=== PATIENT | male | born 1985 | race Caucasian/White ===

== ENCOUNTER 2020-09-06 23:34 | Emergency (ER) | payer OTHER, SELFPAY ==
[2020-09-06 23:35] VITALS: BP 123/83; BP 140/87; PULSE 100; PULSE 103; RESP 18; TEMP 37; O2SAT 100; BMI 32.3
--- NOTE | 2020-09-06 23:45 | ECG_ITS ---
Test Reason : ANXIETY Blood Pressure : / mmHG Vent. Rate : 098 BPM Atrial Rate : 098 BPM P-R Int : 142 ms QRS Dur : 098 ms QT Int : 362 ms P-R-T Axes : 005 066 032 degrees QTc Int : 462 ms Normal sinus rhythm Normal ECG When compared with ECG of 15-JUN-2020 05:39, T wave inversion no longer evident in Anterior leads Heart rate has decreased Referred By: Richelle Calero Electronically Signed By:LACEY ANGELES MD
[2020-09-07] MEDS: LORazepam 2 MG/ML VIAL IVPUSH (00:08)
[2020-09-07 00:14] LABS: Basophils Percent Auto 0.4 % (0-2); Eosinophils Percent Auto 0.1 % (0-4); Hematocrit 48.4 % (42-52); Hemoglobin 17.6 g/dl (14.0-18.0); Imm Gran Abs Auto 0.03 X10*3/uL (0.00-0.03); Imm Gran Pct Auto 0.4 % (0.0-0.4); Lymphocytes Absolute Auto 1.5 X10*3/uL (1.2-4.9); Lymphocytes Percent Auto 18.1 % (20-40); MANUAL DIFF FLAG NO; Mean Corpuscular HGB Conc 36.4 g/dl (31.0-36.0); Mean Corpuscular Hemoglobin 31.5 pg (27.0-33.0); Mean Corpuscular Volume 86.6 fL (80-98); Mean Platelet Volume 8.6 fL (9.4-12.4); Monocytes Absolute Auto 0.5 X10*3/uL (0.1-1.2); Monocytes Percent Auto 5.5 % (2-11); Neutrophils Absolute Auto 6.2 X10*3/uL (2.0-8.3); Neutrophils Percent Auto 75.5 % (45-73); Platelet Count 495 X10*3/uL (160-400); Red Blood Count 5.59 X10*6/uL (4.60-5.80); Red Cell Distribution Width 13.1 % (11.0-16.0); White Blood Count 8.2 X10*3/uL (4.8-10.8)
--- NOTE | 2020-09-07 00:15 | XR_ITS ---
EXAMINATION: XR CHEST CLINICAL INFORMATION: Chest pain COMPARISON: 11/02/2019 TECHNIQUE: Frontal view of the chest was obtained. FINDINGS: No acute finding. Low lung volumes. No obvious failure or infiltrate. No effusion. XR/XR chest 1V IMPRESSION: No acute process
[2020-09-07] MEDS: 0.9 % Sodium Chloride 1,000 ML 999 ML IVCONT ×2 (00:16→01:35)
[2020-09-07 00:37] VITALS: PULSE 88; RESP 18; O2SAT 100
[2020-09-07 00:39] LABS: Ethanol 282 mg/dL
[2020-09-07 00:46] LABS: Anion Gap 22 (12-20); Blood Urea Nitrogen 6 mg/dL (9-16); Calcium 8.7 mg/dL (8.4-10.2); Carbon Dioxide 21 mmol/L (22-29); Chloride 99 mmol/L (96-108); Creatinine Clr Calc Pharmacy 122.1; Estimated Glomerular Filt Rate > 60; Glucose Random 141 mg/dL (60-115); Magnesium 1.7 mg/dL (1.6-2.6); Potassium 3.7 mmol/l (3.3-5.1); Sodium 138 mmol/L (135-145)
--- NOTE | 2020-09-07 01:27 | ED_ITS ---
HPI - General Adult General Chief complaint: General Medical Stated complaint: chest pain Time Seen by Provider: 09/06/20 23:45 History of Present Illness HPI narrative: patient is a 34-year-old male presents to the after drinking alcohol feeling very dizzy, nauseous. Patient from home. Feels very anxious. Patient's wants Ativan. History of anxiety in the past but is out of medicat ion. No cough and no congestion or upper respiratory symptoms no diaphoresis. Patient from home Related Data Allergies Allergy/AdvReac Type Severity Reaction Status Date / Time Penicillins [PENICILLINS] Allergy Severe ANAPHYLAXIS Unverified 07/05/20 15:23 penicillin V Allergy Unknown anaphylaxis Verified 03/21/20 00:00 Penicillin Allergy Unknown Uncoded 06/16/18 00:00 Review of Systems Review of Systems: Constitutional: No Weight loss, No Fever, No Chills, No Night Sweats, No Fatigue, No Malaise ENT/Mouth: No Hearing loss, No Ear Pain, No Nasal Congestion, No Sinus Pain, No Hoarseness, No sore throat, No Rhinorrhea, No Swallowing Difficulty Eyes: No Eye Pain, No Swelling, No Redness, No Foreign Body, No Discharge, No Vision Changes Cardiovascular: No Chest Pain, No SOB, No Dyspnea on Exertion, No Orthopnea, No Edema, No Palpitations Respiratory: No Cough, No Sputum, No Wheezing, No Smoke Exposure, No Dyspnea Gastrointestinal: No Nausea, No Vomiting, No Diarrhea, No Constipation, No abdominal Pain, No Hematochezia, No Melena Genitourinary: no irregular bleeding, No Dysuria, No Urinary Frequency, No Hematuria, No Urinary Incontinence, No Urgency, No Flank Pain, No Urinary Flow Changes, No Hesitancy Musculoskeletal: No joint pain, No Myalgias, No Joint Swelling Skin: No Skin Lesions, No rash Neuro: No Weakness, No Numbness, No Paresthesias, No Loss of Consciousness, No Dizziness, No Headache Psych: No Anxiety/Panic, No Depression, No SI/HI/AH/VH, No Social Issues, Heme/Lymph: No Bruising, No Bleeding,No Lymphadenopathy Endocrine: No Polyuria, No Polydipsia, No Temperature Intolerance PMFSH Past Medical History Attestation statement: The following information was validated with the patient. Medical History Alcohol abuse Anxiety Social History Social History Smoking Status: Current every day smoker Use of substances other than those prescribed or required for medical reasons: Yes Substance Use Type: Marijuana and Unknown Substance Use Frequency: Monthly Advance Directives: No Advance Directives Information Provided: No Physical Exam Vital Signs: Vital Signs: Last Vital Signs Temp 98.6 F 09/06/20 23:35 Pulse 90 09/07/20 03:15 Resp 20 09/07/20 03:15 BP 140/87 H 09/06/20 23:35 Pulse Ox 100 09/07/20 03:15 Body Mass Index 32.3 Appearance: Alert. Oriented X3. No acute distress. Eyes: Pupils equal, round and reactive to light. ENT: Pharynx normal. Neck: Normal inspection. Neck supple. No lymph nodes noted. No crepitus CVS: Normal heart rate and rhythm. Pulses normal. Normal S1 and S2 Respiratory: No respiratory distress. Breath sounds normal. No Wheezing. No rales Abdomen: Soft and nontender. No rigidity. No distention. good BS x4 Skin: Skin warm and dry. Normal skin color. Normal skin turgor. Extremities: No lower extremity edema. Neurovascular intact to all extremities. No Lacerations. No Rash Neuro: Oriented X 3. No motor deficit. No sensory deficit. Moving all extermities. No slurred speech Medical Decision Making MDM Narrative Medical decision making narrative: Patient alcohol elevated. Electrolytes showed an anion gap of 22. Consistent with having alcoholic ketoacidosis. Patient given IV fluids. Monitored repeat electrolytes showed the anion gap have resolved. Will discharge patient home when sober. Patient given Ativan here in the emergency department for anxiety. Lab Data Result diagrams: 09/07/20 00:07 09/07/20 03:00 Labs: Lab Results 09/07/20 09/07/20 09/07/20 Range/Units 00:07 00:07 00:07 WBC 8.2 (4.8-10.8) X10*3/uL RBC 5.59 (4.60-5.80) X10*6/uL Hgb 17.6 (14.0-18.0) g/dl Hct 48.4 (42-52) % MCV 86.6 (80-98) fL MCH 31.5 (27.0-33.0) pg MCHC 36.4 H (31.0-36.0) g/dl RDW 13.1 (11.0-16.0) % Plt Count 495 H (160-400) X10*3/uL MPV 8.6 L (9.4-12.4) fL Immature Gran % (Auto) 0.4 (0.0-0.4) % Neut % (Auto) 75.5 H (45-73) % Lymph % (Auto) 18.1 L (20-40) % [place] % (Auto) 5.5 (2-11) % Eos % (Auto) 0.1 (0-4) % Baso % (Auto) 0.4 (0-2) % Lymph # (Auto) 1.5 (1.2-4.9) X10*3/uL [place] # (Auto) 0.5 (0.1-1.2) X10*3/uL Eos # (Auto) 0.0 (0.0-0.4) X10*3/uL Baso # (Auto) 0.0 (0.0-0.2) X10*3/uL Abs Immat Gran (auto) 0.03 (0.00-0.03) X10*3/uL Absolute Neuts (auto) 6.2 (2.0-8.3) X10*3/uL Absolute Nucleated RBC 0.000 (0.0-0.012) X10*3/uL Nucleated RBC % (auto) 0.0 (0.0-0.2) /100WBC Hold Blue Top SEE NOTE Sodium 138 (135-145) mmol/L Potassium 3.7 (3.3-5.1) mmol/l Chloride 99 (96-108) mmol/L Carbon Dioxide 21 L (22-29) mmol/L Anion Gap 22 H (12-20) BUN 6 L (9-16) mg/dL Creatinine 0.89 (0.5-1.4) mg/dL Estim Creat Clear Calc 122.1 Estimated GFR > 60 Random Glucose 141 H (60-115) mg/dL Calcium 8.7 (8.4-10.2) mg/dL Magnesium 1.7 (1.6-2.6) mg/dL Troponin I High Sens (<3.5-35.0) ng/L Ethyl Alcohol mg/dL 09/07/20 09/07/20 09/07/20 Range/Units 00:07 00:07 03:00 WBC (4.8-10.8) X10*3/uL RBC (4.60-5.80) X10*6/uL Hgb (14.0-18.0) g/dl Hct (42-52) % MCV (80-98) fL MCH (27.0-33.0) pg MCHC (31.0-36.0) g/dl RDW (11.0-16.0) % Plt Count (160-400) X10*3/uL MPV (9.4-12.4) fL Immature Gran % (Auto) (0.0-0.4) % Neut % (Auto) (45-73) % Lymph % (Auto) (20-40) % [place] % (Auto) (2-11) % Eos % (Auto) (0-4) % Baso % (Auto) (0-2) % Lymph # (Auto) (1.2-4.9) X10*3/uL [place] # (Auto) (0.1-1.2) X10*3/uL Eos # (Auto) (0.0-0.4) X10*3/uL Baso # (Auto) (0.0-0.2) X10*3/uL Abs Immat Gran (auto) (0.00-0.03) X10*3/uL Absolute Neuts (auto) (2.0-8.3) X10*3/uL Absolute Nucleated RBC (0.0-0.012) X10*3/uL Nucleated RBC % (auto) (0.0-0.2) /100WBC Hold Blue Top Sodium 141 (135-145) mmol/L Potassium 4.1 (3.3-5.1) mmol/l Chloride 105 (96-108) mmol/L Carbon Dioxide 25 (22-29) mmol/L Anion Gap 15 (12-20) BUN 6 L (9-16) mg/dL Creatinine 0.79 (0.5-1.4) mg/dL Estim Creat Clear Calc 137.6 Estimated GFR > 60 Random Glucose 127 H (60-115) mg/dL Calcium 7.6 L D (8.4-10.2) mg/dL Magnesium (1.6-2.6) mg/dL Troponin I High Sens 4.0 (<3.5-35.0) ng/L Ethyl Alcohol 282 mg/dL Discharge Plan Discharge Clinical Impression: Alcohol abuse, Alcoholic ketoacidosis Patient Disposition: Home, Self-Care Instructions: Abuse of Alcohol (ED) Additional Instructions: Please stop drinking alcohol. Drinking alcohol can kill you. Referrals: Kristen Martínez MD [Primary Care Provider] - 2 days
[2020-09-07 03:15] VITALS: PULSE 90; RESP 20; O2SAT 100
[2020-09-07] MEDS: LORazepam 1 MG TABLET PO (03:19)
[2020-09-07 03:34] LABS: Anion Gap 15 (12-20); Blood Urea Nitrogen 6 mg/dL (9-16); Calcium 7.6 mg/dL (8.4-10.2); Carbon Dioxide 25 mmol/L (22-29); Chloride 105 mmol/L (96-108); Creatinine Clr Calc Pharmacy 137.6; Estimated Glomerular Filt Rate > 60; Glucose Random 127 mg/dL (60-115); Potassium 4.1 mmol/l (3.3-5.1); Sodium 141 mmol/L (135-145)
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
[2020-09-07 04:00] VITALS: PULSE 84; RESP 18
--- NOTE | 2020-09-07 04:16 | PC.NURSE ---
per md patient to be dc at 6am pending stable ambulation.
[2020-09-07 05:50] VITALS: BP 129/85; PULSE 94; RESP 18; O2SAT 100
== END 2020-09-07 06:11 | disposition home or self-care (01) ==
PROVIDERS: Emergency Provider Emergency Medicine Emergency Medical Services; PCP Internal Medicine
DX: F10.129 Alcohol abuse with intoxication, unspecified (principal); E87.2 Acidosis; Y90.8 Blood alcohol level of 240 mg/100 ml or more; R42 Dizziness and giddiness; F17.200 Nicotine dependence, unspecified, uncomplicated; Z71.6 Tobacco abuse counseling
CPT/HCPCS: 36415; 71045; 80048; 80320; 83735; 84484; 85025; 93005; 96361; 96374; 99284; J2060

== ENCOUNTER 2021-01-13 11:23 | Emergency (ER) | payer OTHER, SELFPAY ==
[2021-01-13 11:33] VITALS: BP 124/84; PULSE 120; RESP 18; TEMP 36.1; O2SAT 97; BMI 32.3
[2021-01-13 11:37] LABS: Glucose, Whole Blood 184 mg/dL (60-115)
--- NOTE | 2021-01-13 11:45 | ED_ITS ---
HPI - General Adult General Chief complaint: ETOH/Substance Use Stated complaint: ETOH INTOXICATION,CPD ONBOARD FOR SAFETY Time Seen by Provider: 01/13/21 11:40 History of Present Illness HPI narrative: This is a 35 years old male with history of alcohol abuse presented from home because was intoxicated, he denies any chest pain shortness of breath fever. He does no want detox Onset (ago): hour(s) (1) Related Data Previous Rx's Medication Instructions Recorded trazodone 50 mg tablet 50 mg PO BEDTIME PRN 30 Days #30 12/31/20 tab lorazepam 1 mg PO BID PRN #4 tab 01/13/21 Allergies Allergy/AdvReac Type Severity Reaction Status Date / Time penicillin V Allergy Unknown anaphylaxis Verified 01/13/21 11:33 Review of Systems Review of Systems: Yes all other systems are reviewed and are negative Cardiovascular: Cardiovascular: Reports no additional cardiovascular complaints Respiratory: Respiratory: Reports no additional respiratory complaints Gastrointestinal: Gastrointestinal: Reports no additional gastrointestinal c omplaints Musculoskeletal: Comments: Patient has left lower leg splint PMFSH Past Medical History Medical History Alcohol abuse Anxiety Surgical History History of removal of cyst Family History Family History Father Anxiety Mother Depression Brother No problems noted. Sister No problems noted. Son No problems noted. Son No problems noted. Social History Social History Alcohol intake: current Alcohol intake frequency: 3 or more drinks per day Alcohol type: beer, wine and hard liquor Smoking Status: Current every day smoker Use of substances other than those prescribed or required for medical reasons: No Substance Use Type: Marijuana and Unknown Advance Directives: No Advance Directives Information Provided: No Physical Exam Vital Signs: Vital Signs: Last Vital Signs Temp 97.0 F 01/13/21 11:33 Pulse 120 H 01/13/21 15:17 Resp 20 01/13/21 12:50 BP 148/91 H 01/13/21 15:17 Pulse Ox 99 01/13/21 15:17 Body Mass Index 32.3 Const: General: anxious Orientation/consciousness: oriented to person, oriented to place, oriented to time and patient oriented x3 HENMT: Head: Yes normal to inspection Eyes: General: appearance normal, both eyes and all related structures Neck: Neck: Yes normal visual inspection Chest: Chest palpation & inspection: normal inspection of the chest Resp: Auscultation: clear to auscultation bilaterally Cardio: Palpation: normal PMI Rate: regular rate Rhythm: regular rhythm GI: Inspection: Yes normal to inspection Palpation (GI): Soft to palpation Skin: General skin exam: no rashes or lesions noted and no erythema Neuro: General: oriented to person, oriented to place, oriented to time and patient oriented x3 Extrem: General: Yes normal to inspection Course Reevaluation(s) Reevaluation #1: At this time the patient is awake alert oriented x3, he has decision-making capacity, he does no want detox ,he is not suicidal he wants to be discharged. His father is here to pick him up. I will give him 4 tablet of lorazepam 1 mg so he can try to stop drinking and avoid withdrawal I had a long discussion with his dad, his dad will go tomorrow to court to petition a Section 35 Time: 15:18 Medical Decision Making Lab Data Result diagrams: 01/13/21 11:48 01/13/21 12:30 Labs: Lab Results 01/13/21 01/13/21 01/13/21 Range/Units 11:34 11:48 12:30 WBC 7.0 (4.8-10.8) X10*3/uL RBC 5.90 H (4.60-5.80) X10*6/uL Hgb 17.7 (14.0-18.0) g/dl Hct 50.6 (42-52) % MCV 85.8 (80-98) fL MCH 30.0 (27.0-33.0) pg MCHC 35.0 (31.0-36.0) g/dl RDW 13.2 (11.0-16.0) % Plt Count 543 H (160-400) X10*3/uL MPV 8.8 L (9.4-12.4) fL Immature Gran % (Auto) 0.9 H (0.0-0.4) % Neut % (Auto) 51.5 (45-73) % Lymph % (Auto) 40.3 H (20-40) % [place] % (Auto) 6.4 (2-11) % Eos % (Auto) 0.3 (0-4) % Baso % (Auto) 0.6 (0-2) % Lymph # (Auto) 2.8 (1.2-4.9) X10*3/uL [place] # (Auto) 0.5 (0.1-1.2) X10*3/uL Eos # (Auto) 0.0 (0.0-0.4) X10*3/uL Baso # (Auto) 0.0 (0.0-0.2) X10*3/uL Abs Immat Gran (auto) 0.06 H (0.00-0.03) X10*3/uL Absolute Neuts (auto) 3.6 (2.0-8.3) X10*3/uL Absolute Nucleated RBC 0.000 (0.0-0.012) X10*3/uL Nucleated RBC % (auto) 0.0 (0.0-0.2) /100WBC Sodium 142 (135-145) mmol/L Potassium 4.0 (3.3-5.1) mmol/L Chloride 101 (96-108) mmol/L Carbon Dioxide 23 (22-29) mmol/L Anion Gap 22 H (12-20) BUN 5 L (9-16) mg/dL Creatinine 0.84 (0.5-1.4) mg/dL Estim Creat Clear Calc 128.2 Estimated GFR > 60 POC Glucose 184 H (60-115) mg/dL Random Glucose 124 H (60-115) mg/dL Calcium 8.1 L D (8.4-10.2) mg/dL Magnesium 2.1 (1.6-2.6) mg/dL Total Bilirubin 0.4 (0.0-1.0) mg/dL AST 39 H (5-37) U/L ALT 48 H (0-40) U/L Alkaline Phosphatase 92 (39-117) U/L Total Protein 6.8 (6.5-8.0) g/dL Albumin 4.0 (3.5-5.0) g/dL Ethyl Alcohol mg/dL 01/13/21 Range/Units 12:30 WBC (4.8-10.8) X10*3/uL RBC (4.60-5.80) X10*6/uL Hgb (14.0-18.0) g/dl Hct (42-52) % MCV (80-98) fL MCH (27.0-33.0) pg MCHC (31.0-36.0) g/dl RDW (11.0-16.0) % Plt Count (160-400) X10*3/uL MPV (9.4-12.4) fL Immature Gran % (Auto) (0.0-0.4) % Neut % (Auto) (45-73) % Lymph % (Auto) (20-40) % [place] % (Auto) (2-11) % Eos % (Auto) (0-4) % Baso % (Auto) (0-2) % Lymph # (Auto) (1.2-4.9) X10*3/uL [place] # (Auto) (0.1-1.2) X10*3/uL Eos # (Auto) (0.0-0.4) X10*3/uL Baso # (Auto) (0.0-0.2) X10*3/uL Abs Immat Gran (auto) (0.00-0.03) X10*3/uL Absolute Neuts (auto) (2.0-8.3) X10*3/uL Absolute Nucleated RBC (0.0-0.012) X10*3/uL Nucleated RBC % (auto) (0.0-0.2) /100WBC Sodium (135-145) mmol/L Potassium (3.3-5.1) mmol/L Chloride (96-108) mmol/L Carbon Dioxide (22-29) mmol/L Anion Gap (12-20) BUN (9-16) mg/dL Creatinine (0.5-1.4) mg/dL Estim Creat Clear Calc Estimated GFR POC Glucose (60-115) mg/dL Random Glucose (60-115) mg/dL Calcium (8.4-10.2) mg/dL Magnesium (1.6-2.6) mg/dL Total Bilirubin (0.0-1.0) mg/dL AST (5-37) U/L ALT (0-40) U/L Alkaline Phosphatase (39-117) U/L Total Protein (6.5-8.0) g/dL Albumin (3.5-5.0) g/dL Ethyl Alcohol 341 H* mg/dL Discharge Plan Discharge Clinical Impression: Alcoholic intoxication, Alcohol abuse Patient Disposition: Home, Self-Care Prescriptions: New lorazepam 1 mg tablet 1 mg PO BID PRN (Reason: alcohol withdrawal) Qty: 4 RF: 0 No Action trazodone 50 mg tablet 50 mg PO BEDTIME PRN (Reason: sleep) 30 Days Qty: 30 RF: 0
[2021-01-13] MEDS: 0.9 % Sodium Chloride 1,000 ML 999 ML IVCONT (11:47)
[2021-01-13] MEDS: LORazepam 2 MG/ML VIAL 1 MG IVPUSH (11:47)
[2021-01-13 11:54] LABS: MANUAL DIFF FLAG NO
[2021-01-13 11:56] LABS: Basophils Percent Auto 0.6 % (0-2); Eosinophils Percent Auto 0.3 % (0-4); Hematocrit 50.6 % (42-52); Hemoglobin 17.7 g/dl (14.0-18.0); Imm Gran Abs Auto 0.06 X10*3/uL (0.00-0.03); Imm Gran Pct Auto 0.9 % (0.0-0.4); Lymphocytes Absolute Auto 2.8 X10*3/uL (1.2-4.9); Lymphocytes Percent Auto 40.3 % (20-40); Mean Corpuscular Volume 85.8 fL (80-98); Mean Platelet Volume 8.8 fL (9.4-12.4); Monocytes Absolute Auto 0.5 X10*3/uL (0.1-1.2); Monocytes Percent Auto 6.4 % (2-11); Neutrophils Absolute Auto 3.6 X10*3/uL (2.0-8.3); Neutrophils Percent Auto 51.5 % (45-73); Platelet Count 543 X10*3/uL (160-400); Red Cell Distribution Width 13.2 % (11.0-16.0)
[2021-01-13 12:50] VITALS: BP 122/100; PULSE 116; RESP 20
--- NOTE | 2021-01-13 12:54 | PC.NURSE ---
pt making phone calls to get a sober ride pt slightly agitated, wants to go home
[2021-01-13 12:56] VITALS: PULSE 111
[2021-01-13 13:19] LABS: Ethanol 341 mg/dL
[2021-01-13 13:24] LABS: Alanine Aminotransferase 48 U/L (0-40); Alkaline Phosphatase 92 U/L (39-117); Anion Gap 22 (12-20); Aspartate Amino Transferase 39 U/L (5-37); Bilirubin Total 0.4 mg/dL (0.0-1.0); Blood Urea Nitrogen 5 mg/dL (9-16); Calcium 8.1 mg/dL (8.4-10.2); Carbon Dioxide 23 mmol/L (22-29); Chloride 101 mmol/L (96-108); Creatinine Clr Calc Pharmacy 128.2; Estimated Glomerular Filt Rate > 60; Glucose Random 124 mg/dL (60-115); Magnesium 2.1 mg/dL (1.6-2.6); Sodium 142 mmol/L (135-145); Total Protein 6.8 g/dL (6.5-8.0)
[2021-01-13 15:17] VITALS: BP 148/91; PULSE 120; O2SAT 99
[2021-01-13] MEDS: LORazepam 1 MG TABLET PO (15:25)
== END 2021-01-13 15:30 | disposition home or self-care (01) ==
PROVIDERS: Emergency Provider Emergency Medicine; PCP Internal Medicine
DX: F10.129 Alcohol abuse with intoxication, unspecified (principal); Y90.8 Blood alcohol level of 240 mg/100 ml or more; F17.200 Nicotine dependence, unspecified, uncomplicated; Z71.6 Tobacco abuse counseling; Z79.899 Other long term (current) drug therapy
CPT/HCPCS: 36415; 80053; 80320; 82947; 83735; 85025; 96365; 96375; 99284; J2060

== ENCOUNTER 2021-01-14 14:48 | Emergency (ER) | payer OTHER, SELFPAY ==
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
[2021-01-14 15:00] VITALS: BP 132/65; PULSE 67; RESP 16; TEMP 36.3; O2SAT 98; BMI 30.7
--- NOTE | 2021-01-14 15:03 | ED_ITS ---
HPI - Alcohol General Chief Complaint: ETOH/Substance Use Stated Complaint: ETOH Time Seen by Provider: 01/14/21 14:50 Source: patient and EMS Mode of arrival: EMS History of Present Illness HPI narrative: 35-year-old male with a past medical history of anxiety, ETOH abuse, brought in by ambulance for EtOH intoxication. Patient reports drinking a little, denies other drug illicit use, SI, HI, trauma, falls or injury. Reports has not slept in a while. Requesting Ativan IM injection to help him sleep Related Data Previous Rx's Medication Instructions Recorded trazodone 50 mg tablet 50 mg PO BEDTIME PRN 30 Days #30 12/31/20 tab lorazepam 1 mg PO BID PRN #4 tab 01/13/21 Allergies Allergy/AdvReac Type Severity Reaction Status Date / Time penicillin V Allergy Unknown anaphylaxis Verified 01/13/21 11:33 Review of Systems Review of Systems: Constitutional: No Fever, No Chills Cardiovascular: No Chest Pain, No SOB Gastrointestinal: No Nausea, No Vomiting, No Abdominal pain Musculoskeletal: No joint pain Skin: No rash Neuro: No head trauma Yes all other systems are reviewed and are negative [facility] Past Medical History Attestation statement: The following information was validated with the patient. Medical History Alcohol abuse Anxiety Surgical History History of removal of cyst Family History Family History Father Anxiety Mother Depression Brother No problems noted. Sister No problems noted. Son No problems noted. Son No problems noted. Social History Social History Alcohol intake: current Alcohol intake frequency: 3 or more drinks per day Alcohol type: beer, wine and hard liquor Smoking Status: Current every day smoker Substance Use Type: Marijuana and Unknown Advance Directives: No Advance Directives Information Provided: Yes Physical Exam Vital Signs: Vital Signs: Last Vital Signs Temp 97.3 F 01/14/21 15:00 Pulse 67 01/14/21 15:00 Resp 16 01/14/21 15:00 BP 132/65 01/14/21 15:00 Pulse Ox 98 01/14/21 15:00 Body Mass Index 30.7 Const: Other: Intoxicated, + ETOH odor on breath General: cooperative, alert and awake Limitations: no limitations HENMT: Head: Yes normal to inspection, Yes atraumatic, No Reyes's sign and No raccoon eyes Ears: hearing grossly normal bilaterally General nose exam: Normal external nose present Face and sinus: Yes normal facial exam Eyes: General: appearance normal, both eyes and all related structures Pupils: Equal, round and reactive pupils present EOM: EOMs intact bilaterally Neck: Neck: Yes normal visual inspection Resp: Effort & Inspection: normal respiratory effort, no retractions and no stridor Cardio: Rate: regular rate GI: Inspection: Yes normal to inspection Palpation (GI): Soft to palpation, nontender and not rigid Skin: Rashes: no rashes Wounds: no wounds Neuro: General: tone normal and moves all extremities Cranial nerves: Yes Equal, round and reactive pupils present Extrem: General: Yes normal to inspection Psych: Thought content: suicidality and no homicidality Course Course Course Narrative: On re-eval patient is sleeping comfortably, in no apparent distress --1800--ED care transferred to [facility] pending clinical sobriety and anticipated DC home or transfer to detox if patient is willing MDM - Alcohol MDM Narrative Medical decision making narrative: 35-year-old male with a past medical history of anxiety, ETOH abuse, brought in by ambulance for EtOH intoxication. On exam VSS, NAD, intoxicated, + ETOH odor on breath, [id number], no signs of trauma. Will observe and reassess for clinical sobriety. Discharge Plan Discharge Clinical Impression: Alcoholic intoxication Instructions: Alcohol Intoxication (ED) Additional Instructions: Do not drink alcohol or take drugs it can kill you Prescriptions: No Action lorazepam 1 mg tablet 1 mg PO BID PRN (Reason: alcohol withdrawal) Qty: 4 RF: 0 trazodone 50 mg tablet 50 mg PO BEDTIME PRN (Reason: sleep) 30 Days Qty: 30 RF: 0 Referrals: Physician,Unknown [Primary Care Provider] - 2 days
--- NOTE | 2021-01-14 15:14 | PC.NURSE ---
MOTHER CALLED AND STATES PATIENT NEEDS A CRISIS EVAL WHEN SOBER
--- NOTE | 2021-01-14 15:29 | PC.NURSE ---
sleeping. side lying. arousable.
--- NOTE | 2021-01-14 17:30 | PC.NURSE ---
increasing activity. making mult phone calls. at times is difficult to redirect to stay safely in bed.
--- NOTE | 2021-01-14 18:18 | PC.NURSE ---
pt making multiple attempts to leave er. pt not directable. pt needing multiple staff to escort back to bed.
[2021-01-14 19:31] VITALS: BP 119/83; PULSE 114; RESP 18; O2SAT 95
--- NOTE | 2021-01-14 19:35 | PC.NURSE ---
pt has been ambulatory but with unsteady gait.
== END 2021-01-14 22:06 | disposition home or self-care (01) ==
PROVIDERS: Emergency Provider Emergency Medicine Emergency Medical Services
DX: F10.120 Alcohol abuse with intoxication, uncomplicated (principal); Y90.9 Presence of alcohol in blood, level not specified; F17.200 Nicotine dependence, unspecified, uncomplicated; F12.90 Cannabis use, unspecified, uncomplicated
CPT/HCPCS: 70450; 99284

== ENCOUNTER 2021-01-17 06:43 | Emergency (ER) | payer OTHER, SELFPAY ==
[2021-01-17 06:49] VITALS: BP 145/100; PULSE 114; RESP 20; TEMP 36.7; O2SAT 97; BMI 26.3
--- NOTE | 2021-01-17 07:13 | ED_ITS ---
HPI - General Adult General Chief complaint: ETOH/Substance Use Stated complaint: withdrawing Time Seen by Provider: 01/17/21 07:11 Source: patient Mode of arrival: EMS Limitations: no limitations History of Present Illness HPI narrative: 35-year-old male who presents emergency department for evaluation of an ?I am detoxing ?. The patient states that he binge drinks. He has been drinking daily for approximately 5 weeks. He states that he has been drinking Kwesi Archuleta and strawberry margaritas, he states that he drinks of lot and cannot quantify the amount. His last drink was last night at 8:30 p.m.. He s tates that this morning he began vomiting. He states that he has vomited multiple times but cannot quantify the number. He denies any blood in the emesis. He denies any change in his bowel movements, dark tarry stools or blood in his stools. He is complaining of nausea. He also states that he shaking uncontrollably knee believes that he is withdrawing from alcohol. He denies ever having delirium tremors or withdrawal seizures. He states that he has been in detox and rehab programs at least 10 times in the past. States that his last detox was probably 2 years prior. Related Data Previous Rx's Medication Instructions Recorded trazodone 50 mg tablet 50 mg PO BEDTIME PRN 30 Days #30 12/31/20 tab lorazepam 1 mg PO BID PRN #4 tab 01/13/21 Allergies Allergy/AdvReac Type Severity Reaction Status Date / Time penicillin V Allergy Unknown anaphylaxis Verified 01/13/21 11:33 Review of Systems Review of Systems: Yes all other systems are reviewed and are negative Neurologic: Reports Abnormal speech present [facility] Past Medical History [facility] Narrative: The patient denies tobacco use. He binge drinks alcohol and he states that he has been drinking daily for 5 weeks. He denies drug use when I question him, he reported to the nursing staff that he uses marijuana. Medical History Alcohol abuse Anxiety Surgical History History of removal of cyst Family History Family History Father Anxiety Mother Depression Brother No problems noted. Sister No problems noted. Son No problems noted. Son No problems noted. Social History Social History Alcohol intake: current Alcohol intake frequency: 3 or more drinks per day Alcohol type: beer, wine and hard liquor Smoking Status: Never smoker Use of substances other than those prescribed or required for medical reasons: No Substance Use Type: Marijuana and Unknown Advance Directives: Yes Advance Directives Information Provided: No Advance Directives on File: No Physical Exam Vital Signs: Vital Signs: Last Vital Signs Temp 98.0 F 01/17/21 06:49 Pulse 118 H 01/17/21 10:35 Resp 18 01/17/21 10:35 BP 114/87 01/17/21 10:35 Pulse Ox 95 01/17/21 10:35 Body Mass Index 26.3 Const: General: cooperative and other (Face is erythematous, he is tremulous, he appears anxious) Orientation/consciousness: oriented to person and oriented to place Limitations: no limitations HENMT: Head: Yes normal to inspection, Yes normocephalic and Yes atraumatic Ears: external ears normal General nose exam: Normal external nose present Face and sinus: Yes normal facial exam Mouth: Normal oral and palatal mucosa present Throat: Yes posterior oropharynx normal Eyes: Periorbital: periorbital findings normal Eyelids: Yes eyelids normal Conjunctivae: conjunctivae normal Sclerae: sclerae normal Corneas: corneas normal Pupils: Equal, round and reactive pupils present Direct Ophthalmoscopy: normal light reflex Neck: Neck: Yes full ROM, Yes no lymphadenopathy, Yes no meningeal signs, Yes trachea midline and Yes supple Chest: Chest palpation & inspection: normal inspection of the chest and normal palpation of entire chest wall Resp: Effort & Inspection: normal respiratory effort and able to speak in complete sentences Auscultation: clear to auscultation bilaterally Cardio: Rate: tachycardic Rhythm: regular rhythm Heart sounds: S1 normal heart sound present, S2 normal heart sound present and no murmurs GI: Inspection: Yes normal to inspection Palpation (GI): Soft to palpation, nontender, no guarding, not rigid and No hepatosplenomegaly present Auscultation: normal bowel sounds : General: Yes no CVA tenderness Back/Spine/Pelvis: Back: no CVA tenderness Cervical Spine: normal cervical lordosis Thoracic/Lumbar Spine: thoracic and lumbar spine normal to inspection Skin: Lesions: no lesions Rashes: no rashes Wounds: no wounds Neuro: General: oriented to person, oriented to place and no meningeal signs Cranial nerves: Yes CN's II-XII intact bilaterally and Yes Equal, round and reactive pupils present Cognition (Neuro): normal cognition Speech: Abnormal speech present Motor exam (neuro): 5/5 motor strength present throughout Extrem: General: Yes normal to inspection and Yes full ROM Psych: Appearance: well kempt Mental Status: mental status grossly normal Speech and movement: Normal speech and movement present Affect: Anxious affect present Attitude: cooperative Thought process: Normal thought process present Thought content: Normal thought content present Course Course Course Narrative: 35-year-old man with a history of alcohol use disorder, the patient states he has been binge drinking for 5 weeks, developed nausea and vomiting last night his last drink was at 8:30 p.m.. last night. Physical examination revealed that he was tachycardic with a pulse of 114, hypertensive with a blood pressure of 145/100 and tachypneic with a respiratory rate of 20. He did have tremors and appear to be anxious otherwise exam was unremarkable. I ordered a CBC, CMP, PT INR, PTT, alcohol level, urine tox screen and urinalysis. He was ordered to get Zofran 4 mg IV for his nausea and vomiting, Ativan 2 mg IV for his withdrawal and normal saline x1 L. 1122: The patient's laboratory evaluation revealed a slight elevation in his ALT of 46, his alcohol level was elevated 246, his urine tox screen was negative. The patient was treated with Ativan 2 mg IV times a total of 2 doses and Ativan 2 mg orally with some improvement of his tremors. The patient was evaluated by our care team and by our chief engineer drilling and recovery and the patient does not want to go into a detox program at this time. He did except the outpatient detox list from the chief engineer drilling and recovery and he states that if he changes his mind he will try to get into a detox program. The patient will be discharged home in the care of his mother. Medical Decision Making Lab Data Result diagrams: 01/17/21 07:58 01/17/21 07:58 Labs: Lab Results 01/17/21 01/17/21 01/17/21 Range/Units 07:58 07:58 07:58 WBC 7.2 (4.8-10.8) X10*3/uL RBC 5.46 (4.60-5.80) X10*6/uL Hgb 16.2 (14.0-18.0) g/dl Hct 46.2 (42-52) % MCV 84.6 (80-98) fL MCH 29.7 (27.0-33.0) pg MCHC 35.1 (31.0-36.0) g/dl RDW 13.2 (11.0-16.0) % Plt Count 396 D (160-400) X10*3/uL MPV 8.7 L (9.4-12.4) fL Immature Gran % (Auto) 0.6 H (0.0-0.4) % Neut % (Auto) 66.9 (45-73) % Lymph % (Auto) 24.7 (20-40) % [place] % (Auto) 7.0 (2-11) % Eos % (Auto) 0.1 (0-4) % Baso % (Auto) 0.7 (0-2) % Lymph # (Auto) 1.8 (1.2-4.9) X10*3/uL [place] # (Auto) 0.5 (0.1-1.2) X10*3/uL Eos # (Auto) 0.0 (0.0-0.4) X10*3/uL Baso # (Auto) 0.1 (0.0-0.2) X10*3/uL Abs Immat Gran (auto) 0.04 H (0.00-0.03) X10*3/uL Absolute Neuts (auto) 4.8 (2.0-8.3) X10*3/uL Absolute Nucleated RBC 0.000 (0.0-0.012) X10*3/uL Nucleated RBC % (auto) 0.0 (0.0-0.2) /100WBC PT (10.8-13.0) SEC INR (0.9-1.1) APTT (24.1-38.0) SEC Sodium 133 L (135-145) mmol/L Potassium 3.6 (3.3-5.1) mmol/L Chloride 91 L (96-108) mmol/L Carbon Dioxide 22 (22-29) mmol/L Anion Gap 24 H (12-20) BUN 2 L D (9-16) mg/dL Creatinine 0.81 (0.5-1.4) mg/dL Estim Creat Clear Calc 146.5 Estimated GFR > 60 Random Glucose 143 H (60-115) mg/dL Calcium 8.5 (8.4-10.2) mg/dL Total Bilirubin 0.6 (0.0-1.0) mg/dL AST 37 (5-37) U/L ALT 46 H (0-40) U/L Alkaline Phosphatase 112 D (39-117) U/L Total Protein 7.1 (6.5-8.0) g/dL Albumin 4.2 (3.5-5.0) g/dL Lipase 54 (8-78) U/L Urine Color Urine Appearance Urine pH (5.0-8.0) Ur Specific [place] (1.005-1.025) Urine Protein (NEG-TRACE) MG/DL Urine Glucose (UA) (NEG) MG/DL Urine Ketones (NEG) MG/DL Urine Blood (NEG) Urine Nitrite (NEG) Ur Leukocyte Esterase (NEG) Urine RBC (0) /HPF Urine WBC (0-4) /HPF Ur Squamous Epith Cells /LPF Urine Bacteria /LPF Urine Opiates Screen (Not Detect) Ur Barbiturates Screen (Not Detect) Ur Phencyclidine Scrn (Not Detect) Ur Amphetamines Screen (Not Detect) U Benzodiazepines Scrn (Not Detect) Urine Cocaine Screen (Not Detect) U Marijuana (THC) Screen (Not Detect) Ethyl Alcohol 246 mg/dL 01/17/21 01/17/21 01/17/21 Range/Units 08:47 09:06 09:06 WBC (4.8-10.8) X10*3/uL RBC (4.60-5.80) X10*6/uL Hgb (14.0-18.0) g/dl Hct (42-52) % MCV (80-98) fL MCH (27.0-33.0) pg MCHC (31.0-36.0) g/dl RDW (11.0-16.0) % Plt Count (160-400) X10*3/uL MPV (9.4-12.4) fL Immature Gran % (Auto) (0.0-0.4) % Neut % (Auto) (45-73) % Lymph % (Auto) (20-40) % [place] % (Auto) (2-11) % Eos % (Auto) (0-4) % Baso % (Auto) (0-2) % Lymph # (Auto) (1.2-4.9) X10*3/uL [place] # (Auto) (0.1-1.2) X10*3/uL Eos # (Auto) (0.0-0.4) X10*3/uL Baso # (Auto) (0.0-0.2) X10*3/uL Abs Immat Gran (auto) (0.00-0.03) X10*3/uL Absolute Neuts (auto) (2.0-8.3) X10*3/uL Absolute Nucleated RBC (0.0-0.012) X10*3/uL Nucleated RBC % (auto) (0.0-0.2) /100WBC PT 11.7 (10.8-13.0) SEC INR 1.0 (0.9-1.1) APTT 27.1 (24.1-38.0) SEC Sodium (135-145) mmol/L Potassium (3.3-5.1) mmol/L Chloride (96-108) mmol/L Carbon Dioxide (22-29) mmol/L Anion Gap (12-20) BUN (9-16) mg/dL Creatinine (0.5-1.4) mg/dL Estim Creat Clear Calc Estimated GFR Random Glucose (60-115) mg/dL Calcium (8.4-10.2) mg/dL Total Bilirubin (0.0-1.0) mg/dL AST (5-37) U/L ALT (0-40) U/L Alkaline Phosphatase (39-117) U/L Total Protein (6.5-8.0) g/dL Albumin (3.5-5.0) g/dL Lipase (8-78) U/L Urine Color STRAW Urine Appearance CLEAR Urine pH 7.0 (5.0-8.0) Ur Specific [place] <= 1.005 (1.005-1.025) Urine Protein NEG (NEG-TRACE) MG/DL Urine Glucose (UA) NEG (NEG) MG/DL Urine Ketones NEG (NEG) MG/DL Urine Blood TRACE (NEG) Urine Nitrite NEG (NEG) Ur Leukocyte Esterase NEG (NEG) Urine RBC 0-2 (0) /HPF Urine WBC 0 (0-4) /HPF Ur Squamous Epith Cells NONE /LPF Urine Bacteria NONE /LPF Urine Opiates Screen Not Detected (Not Detect) Ur Barbiturates Screen Not Detected (Not Detect) Ur Phencyclidine Scrn Not Detected (Not Detect) Ur Amphetamines Screen Not Detected (Not Detect) U Benzodiazepines Scrn Not Detected (Not Detect) Urine Cocaine Screen Not Detected (Not Detect) U Marijuana (THC) Screen Not Detected (Not Detect) Ethyl Alcohol mg/dL Discharge Plan Discharge Clinical Impression: Alcohol withdrawal Qualifiers: Complication of substance-induced condition: uncomplicated Qualified Code(s): F10.230 - Alcohol dependence with withdrawal, uncomplicated Alcohol intoxication Qualifiers: Complication of substance-induced condition: uncomplicated Qualified Code(s): F10.920 - Alcohol use, unspecified with intoxication, uncomplicated Patient Disposition: Home, Self-Care Instructions: Alcohol Withdrawal (ED) Additional Instructions: Your laboratory evaluation was unremarkable except for an elevated alcohol level of 246. An alcohol level above 80 is considered alcohol intoxication. You were treated in the emergency department with Ativan 2 mg IV and Ativan 2 mg orally. You were evaluated by our care team and by our chief engineer drilling and recovery who recommended that you go into detox to get help with your alcohol use disorder. You were given a list of outpatient alcohol detox centers, please call the centers on the list to try to get into detox program. Follow-up with your doctor in 2 days. Please return to the emergency department if your symptoms get worse or if you develop any symptoms that are concerning to you. Prescriptions: No Action lorazepam 1 mg tablet 1 mg PO BID PRN (Reason: alcohol withdrawal) Qty: 4 RF: 0 trazodone 50 mg tablet 50 mg PO BEDTIME PRN (Reason: sleep) 30 Days Qty: 30 RF: 0
[2021-01-17] MEDS: ondansetron HCL 4 MG/2 ML VIAL IVPUSH (07:53)
[2021-01-17] MEDS: LORazepam 2 MG/ML VIAL IVPUSH ×2 (07:53→10:31)
[2021-01-17] MEDS: 0.9 % Sodium Chloride 1,000 ML 999 ML IV (07:54)
[2021-01-17 08:03] LABS: MANUAL DIFF FLAG NO
[2021-01-17 08:13] LABS: Basophils Absolute Auto 0.1 X10*3/uL (0.0-0.2); Basophils Percent Auto 0.7 % (0-2); Eosinophils Percent Auto 0.1 % (0-4); Hematocrit 46.2 % (42-52); Hemoglobin 16.2 g/dl (14.0-18.0); Imm Gran Abs Auto 0.04 X10*3/uL (0.00-0.03); Imm Gran Pct Auto 0.6 % (0.0-0.4); Lymphocytes Absolute Auto 1.8 X10*3/uL (1.2-4.9); Lymphocytes Percent Auto 24.7 % (20-40); Mean Corpuscular HGB Conc 35.1 g/dl (31.0-36.0); Mean Corpuscular Hemoglobin 29.7 pg (27.0-33.0); Mean Corpuscular Volume 84.6 fL (80-98); Mean Platelet Volume 8.7 fL (9.4-12.4); Monocytes Absolute Auto 0.5 X10*3/uL (0.1-1.2); Neutrophils Absolute Auto 4.8 X10*3/uL (2.0-8.3); Neutrophils Percent Auto 66.9 % (45-73); Platelet Count 396 X10*3/uL (160-400); Red Blood Count 5.46 X10*6/uL (4.60-5.80); Red Cell Distribution Width 13.2 % (11.0-16.0); White Blood Count 7.2 X10*3/uL (4.8-10.8)
[2021-01-17 08:34] LABS: Alanine Aminotransferase 46 U/L (0-40); Albumin Level 4.2 g/dL (3.5-5.0); Alkaline Phosphatase 112 U/L (39-117); Anion Gap 24 (12-20); Aspartate Amino Transferase 37 U/L (5-37); Bilirubin Total 0.6 mg/dL (0.0-1.0); Blood Urea Nitrogen 2 mg/dL (9-16); Calcium 8.5 mg/dL (8.4-10.2); Carbon Dioxide 22 mmol/L (22-29); Chloride 91 mmol/L (96-108); Creatinine Clr Calc Pharmacy 146.5; Estimated Glomerular Filt Rate > 60; Glucose Random 143 mg/dL (60-115); Lipase 54 U/L (8-78); Potassium 3.6 mmol/L (3.3-5.1); Sodium 133 mmol/L (135-145); Total Protein 7.1 g/dL (6.5-8.0)
[2021-01-17 08:58] VITALS: BP 127/80; PULSE 117; RESP 18; O2SAT 95
[2021-01-17 09:08] LABS: Prothrombin Time 11.7 SEC (10.8-13.0)
[2021-01-17 09:12] LABS: Partial Thromboplastin Time 27.1 SEC (24.1-38.0)
[2021-01-17 09:36] LABS: Glucose Urine UA NEG (NEG); Leukocyte Esterase Urine NEG (NEG); Nitrite Urine NEG (NEG); Specific Gravity - Urine <= 1.005 (1.005-1.025); Urine Blood TRACE (NEG); Urine Ketones NEG (NEG); Urine Protein NEG (NEG-TRACE)
[2021-01-17 09:37] LABS: Appearance Urine CLEAR; Color Urine STRAW
[2021-01-17 09:50] LABS: RBC Urine 0-2 /HPF (0); WBC Urine 0 /HPF (0-4)
[2021-01-17 10:30] LABS: Ethanol 246 mg/dL
--- NOTE | 2021-01-17 10:33 | MHC.RECOVSUP ---
Recovery Support note: Patient is a 35 year old Malian speaking male who presented [place] [facility] [place] reporting heavy drinking over the past month and withdrawal symptoms. This sports book writer met with patient to discuss substance use and treatment options. Patient reports he wants to enter recovery however he does not want to go to detox today. Patient states he has been to the local facilities many times and he is not interested in going to detox. Patient expressed interest in being medically admitted. This sports book writer explained that [facility] [place] not typically admit patient's for detox. This sports book writer introduced patient to [facility] and discussed IOP, AA, MAT and recovery supports with patient. Patient and mother accepted information on these resources. Patient explained that he is planning on presenting to [facility] as he reports he typically gets admitted there. Patient reports anxiety at this time. Discussed content of consultation with patient's ED provider.
[2021-01-17 10:35] VITALS: BP 114/87; PULSE 118; RESP 18; O2SAT 95
[2021-01-17 10:36] LABS: Amphetamine Screen Urine Not Detected (Not Detect); Barbiturates, Urine Not Detected (Not Detect); Benzodiazepines Screen Urine Not Detected (Not Detect); Cannabinoid Screen Urine Not Detected (Not Detect); Cocaine Screen Urine Not Detected (Not Detect); Opiate Screen Urine Not Detected (Not Detect); Phencyclidine Screen Urine Not Detected (Not Detect)
--- NOTE | 2021-01-17 11:01 | PC.NURSE ---
strength and conditioning coach and MD spoke with pt. He does not want detox.
[2021-01-17] MEDS: LORazepam 1 MG TABLET 2 MG PO (11:33)
== END 2021-01-17 11:42 | disposition home or self-care (01) ==
PROVIDERS: Emergency Provider Emergency Medicine Emergency Medical Services
DX: F10.230 Alcohol dependence with withdrawal, uncomplicated (principal); F10.220 Alcohol dependence with intoxication, uncomplicated; Y90.8 Blood alcohol level of 240 mg/100 ml or more; F41.9 Anxiety disorder, unspecified; F12.90 Cannabis use, unspecified, uncomplicated
CPT/HCPCS: 36415; 80053; 80307; 80320; 81001; 83690; 85025; 85610; 85730; 96361; 96374; 96375; 96376; 99284; J2060; J2405

== ENCOUNTER 2021-08-27 12:02 | Outpatient (REF) | payer OTHER, SELFPAY ==
--- NOTE | ~2021-08-27 | XR_ITS ---
EXAMINATION: XR KNEE, RIGHT CLINICAL INFORMATION: Right knee pain. COMPARISON: None TECHNIQUE: Four views of the right knee. FINDINGS: Bones and soft tissues are normal. No fracture or joint effusion. Alignment is anatomic. Joint spaces are well maintained. No abnormal soft tissue calcification. XR/XR knee RT 4V IMPRESSION: Normal right knee.
== END 2021-08-27 12:03 | disposition home or self-care (01) ==
LOC: HO.HMGCX 12:02
PROVIDERS: PCP Internal Medicine; Visit Provider Physician Assistant Medical
DX: M25.561 Pain in right knee (principal)
CPT/HCPCS: 73564

== ENCOUNTER 2021-12-12 13:02 | Emergency (ER) | payer OTHER, SELFPAY ==
[2021-12-12] VITALS (12 sets, daily range): BP systolic 110–154; BP diastolic 64–90; PULSE 87–115; RESP 15–20; TEMP 36.6–36.7; O2SAT 90–98; BMI 27.6
--- NOTE | ~2021-12-12 | XR_ITS ---
EXAMINATION: XR CHEST CLINICAL INFORMATION: AMS. Leukopenia. Shortness of breath. COMPARISON: September 07, 2020 TECHNIQUE: AP portable view of the chest was obtained. FINDINGS: No significant abnormality is noted involving the heart, lungs, mediastinum, bony thorax or soft tissues. XR/XR chest 1V IMPRESSION: No acute disease.
--- NOTE | 2021-12-12 13:04 | ED.PSYCH ---
HPI - Psych General Chief Complaint: ETOH/Substance Use Stated Complaint: SECTION 12, SI, ETOH Time Seen by Provider: 12/12/21 13:04 Source: patient, EMS and police Mode of arrival: EMS Limitations: no limitations History of Present Illness HPI Narrative: This is a 36-year-old male past medical history significant for anxiety, alcohol abuse disorder presenting to the emergency department via ambulance and with police with acute alcohol intoxication. Patient is too intoxicated to answer questions he says he thinks he is here for detox unsure who called 911. According to EMS is resonance at the residence home. He is unable to quantify how much she is drink. He smells like alcohol. Ambulating with an unsteady gait. Not answering questions appropriately. When I asked him if he is suicidal and homicidal he says ?absolutely not ?. Duration: constant History of same: Yes Relieving factors: none Exacerbating factors: none Context: recent alcohol abuse Associated symptoms: denies other symptoms Treatments prior to arrival: none Related Data Previous Rx's Medication Instructions Recorded naproxen 500 mg tablet (Naprosyn) 500 mg PO BID PRN #30 tab 08/27/21 Allergies Allergy/AdvReac Type Severity Reaction Status Date / Time penicillin V Allergy Unknown anaphylaxis Verified 08/27/21 11:28 Review of Systems Review of Systems: Patient acutely intoxicated, not answering questions appropriately. Yes Unobtainable due to mental status PMFSH Past Medical History Attestation statement: The following information was validated with the patient. Source: old records reviewed and nursing notes reviewed Medical History Alcohol dependence in early full remission Anxiety COVID-19 vaccination declined Surgical History History of removal of cyst Family History Family History Father Anxiety Mental health disorder Mother Depression Mental health disorder Brother Substance use disorder Mental health disorder Sister Mental health disorder Son No problems noted. Son No problems noted. Paternal Grandfather Substance use disorder Maternal Uncle Substance use disorder Social History Social History Housing: House Alcohol intake: current Alcohol intake frequency: 3 or more drinks per day Alcohol type: beer, wine and hard liquor Patient Tobacco Use Status: Former Tobacco user Years Smoked: 6 months e-Cigarette/Vaping Use: Never Used Second Hand Smoke Exposure: No Substance Use Type: Marijuana and Unknown Advance Directives: No Advance Directives Information Provided: No service: No Current occupational status: employed Physical Exam Vital Signs: Vital Signs: BMI result Body Mass Index 27.6 VSS Appearance: Alert.? Awake. No acute distress.? Acutely intoxicated smells like alcohol. Head: Normocephalic, atraumatic, no step-offs or deformities Eyes: Pupils equal, round and reactive to light.?EOMI ENT: Pharynx normal.? Neck: Normal inspection.? Neck supple.? CVS: Normal heart rate and rhythm.? Pulses normal.? Respiratory: No respiratory distress.? Breath sounds normal.? Abdomen: Soft and nontender.? Skin: Skin warm and dry.? Normal skin color.? Normal skin turgor.? Extremities: No lower extremity edema.? No calf ttp. 5/5 strength to bilateral upper and lower extremities Back: No midline tenderness, no C-spine tenderness, full range of motion, no CVA tenderness bilaterally Neuro: Patient awake, alert oriented to person, place not time or situation. No motor deficit.? No sensory deficit. CN 2-12 intact . Ambulating with an unsteady gait. Course Reevaluation(s) Reevaluation #1: Patient in the hallway causing a scene, screaming, trying to fight security, threat to self and others. At this time Haldol, Benadryl been ordered. Patient earlier took 2 mg of Ativan willingly. At this time he will be medically restrained as he is a risk to self and others. Patient noted to have a leukopenia. Chemistry pending. UA clean. Toxicology positive for benzodiazepines. Ethanol 356. COVID pending. Time: 14:40 Reevaluation #2: No acute electrolyte abnormalities, transaminases elevated. COVID negative. At this time patient will be placed in physician observation to allow more time to be evaluated by the behavioral health team, and for him to become clinically sober. At time observation was started patient was, cooperative in no acute distress. Time: 15:52 MDM - Psych MDM Narrative Medical decision making narrative: 1313 36-year-old male presents with acute alcohol intoxication. To intoxicated to answer my questions appropriately. Denies SI and HI. Physical examination significant for an intoxicated individual, not making sense, ambulating with an unsteady gait. Smells like alcohol. Plan at this time is to obtain basic labs and medically clear patient. He will be given Ativan for seizure prophylaxis. Medical Records Attestation: I reviewed the patient's medical records. Lab Data Attestation: I reviewed the patient's lab results. Result diagrams: 12/12/21 14:15 12/12/21 14:15 Labs: Lab Results 12/12/21 12/12/21 12/12/21 Range/Units 13:23 13:23 14:15 WBC 4.5 L (4.8-10.8) X10*3/uL RBC 5.10 (4.60-5.80) X10*6/uL Hgb 16.1 (14.0-18.0) g/dl Hct 46.5 (42.0-52.0) % MCV 91.2 (80.0-98.0) fL MCH 31.6 (27.0-33.0) pg MCHC 34.6 (31.0-36.0) g/dl RDW 13.8 (11.0-16.0) % Plt Count 309 (160-400) X10*3/uL MPV 9.3 L (9.4-12.4) fL Immature Gran % (Auto) 0.2 (0.0-0.4) % Neut % (Auto) 61.4 (45-73) % Lymph % (Auto) 26.3 (20-40) % [place] % (Auto) 9.4 (2-11) % Eos % (Auto) 1.6 (0-4) % Baso % (Auto) 1.1 (0-2) % Lymph # (Auto) 1.2 (1.2-4.9) X10*3/uL [place] # (Auto) 0.4 (0.1-1.2) X10*3/uL Eos # (Auto) 0.1 (0.0-0.4) X10*3/uL Baso # (Auto) 0.1 (0.0-0.2) X10*3/uL Abs Immat Gran (auto) 0.01 (0.00-0.03) X10*3/uL Absolute Neuts (auto) 2.7 (2.0-8.3) x10*3/uL Absolute Nucleated RBC 0.000 (0.0-0.012) X10*3/uL Nucleated RBC % (auto) 0.0 (0.0-0.2) /100WBC Sodium (135-145) mmol/L Potassium (3.3-5.1) mmol/L Chloride (96-108) mmol/L Carbon Dioxide (22-29) mmol/L Anion Gap (12-20) BUN (9-16) mg/dL Creatinine (0.5-1.4) mg/dL Estim Creat Clear Calc Estimated GFR Random Glucose (60-115) mg/dL Calcium (8.4-10.2) mg/dL Magnesium (1.6-2.6) mg/dL Total Bilirubin (0.0-1.0) mg/dL AST (5-37) U/L ALT (0-40) U/L Alkaline Phosphatase (39-117) U/L Total Protein (6.5-8.0) g/dL Albumin (3.5-5.0) g/dL Urine Color STRAW Urine Appearance CLEAR Urine pH 6.0 (5.0-8.0) Ur Specific [place] <= 1.005 (1.005-1.025) Urine Protein NEG (NEG-TRACE) MG/DL Urine Glucose (UA) NEG (NEG) MG/DL Urine Ketones NEG (NEG) MG/DL Urine Blood NEG (NEG) Urine Nitrite NEG (NEG) Ur Leukocyte Esterase NEG (NEG) Urine Opiates Screen Not Detected (Not Detect) Urine Fentanyl Screen Not Detected (Not Detect) Ur Barbiturates Screen Not Detected (Not Detect) Ur Phencyclidine Scrn Not Detected (Not Detect) Ur Amphetamines Screen Not Detected (Not Detect) U Benzodiazepines Scrn POSITIVE H (Not Detect) Urine Cocaine Screen Not Detected (Not Detect) U Marijuana (THC) Screen Not Detected (Not Detect) Ethyl Alcohol mg/dL COVID-19 (ESTEFANÍA) (Negative) COVID-19 Clin Com 12/12/21 12/12/21 12/12/21 Range/Units 14:15 14:15 14:15 WBC (4.8-10.8) X10*3/uL RBC (4.60-5.80) X10*6/uL Hgb (14.0-18.0) g/dl Hct (42.0-52.0) % MCV (80.0-98.0) fL MCH (27.0-33.0) pg MCHC (31.0-36.0) g/dl RDW (11.0-16.0) % Plt Count (160-400) X10*3/uL MPV (9.4-12.4) fL Immature Gran % (Auto) (0.0-0.4) % Neut % (Auto) (45-73) % Lymph % (Auto) (20-40) % [place] % (Auto) (2-11) % Eos % (Auto) (0-4) % Baso % (Auto) (0-2) % Lymph # (Auto) (1.2-4.9) X10*3/uL [place] # (Auto) (0.1-1.2) X10*3/uL Eos # (Auto) (0.0-0.4) X10*3/uL Baso # (Auto) (0.0-0.2) X10*3/uL Abs Immat Gran (auto) (0.00-0.03) X10*3/uL Absolute Neuts (auto) (2.0-8.3) x10*3/uL Absolute Nucleated RBC (0.0-0.012) X10*3/uL Nucleated RBC % (auto) (0.0-0.2) /100WBC Sodium 142 (135-145) mmol/L Potassium 3.5 (3.3-5.1) mmol/L Chloride 107 (96-108) mmol/L Carbon Dioxide 21 L (22-29) mmol/L Anion Gap 18 (12-20) BUN 4 L (9-16) mg/dL Creatinine 0.84 (0.5-1.4) mg/dL Estim Creat Clear Calc 139.9 Estimated GFR > 60 Random Glucose 141 H (60-115) mg/dL Calcium 8.7 (8.4-10.2) mg/dL Magnesium 1.9 (1.6-2.6) mg/dL Total Bilirubin 0.6 (0.0-1.0) mg/dL AST 97 H (5-37) U/L ALT 164 H (0-40) U/L Alkaline Phosphatase 99 (39-117) U/L Total Protein 7.4 (6.5-8.0) g/dL Albumin 4.4 (3.5-5.0) g/dL Urine Color Urine Appearance Urine pH (5.0-8.0) Ur Specific [place] (1.005-1.025) Urine Protein (NEG-TRACE) MG/DL Urine Glucose (UA) (NEG) MG/DL Urine Ketones (NEG) MG/DL Urine Blood (NEG) Urine Nitrite (NEG) Ur Leukocyte Esterase (NEG) Urine Opiates Screen (Not Detect) Urine Fentanyl Screen (Not Detect) Ur Barbiturates Screen (Not Detect) Ur Phencyclidine Scrn (Not Detect) Ur Amphetamines Screen (Not Detect) U Benzodiazepines Scrn (Not Detect) Urine Cocaine Screen (Not Detect) U Marijuana (THC) Screen (Not Detect) Ethyl Alcohol 356 H* mg/dL COVID-19 (ESTEFANÍA) Negative (Negative) COVID-19 Clin Com See Note Critical Care Time Critical Care Time Critical Care Time: No Discharge Plan Discharge Clinical Impression: Alcohol intoxication, Anxiety Patient Disposition: Still a Patient Instructions: Alcohol Intoxication (ED) Additional Instructions: Take your medications as prescribed. If you were prescribed antibiotics today, it is important that you take your medication to their entirety, do not skip any doses, do not finish them early. Follow-up with your primary care provider this week. Return to the emergency department with new or worsening symptoms. In case of emergency call 911 Prescriptions: No Action naproxen [Naprosyn] 500 mg tablet 500 mg PO BID PRN (Reason: pain) Qty: 30 0RF
[2021-12-12] MEDS: LORazepam 1 MG TABLET 2 MG PO ×2 (13:28→22:46)
[2021-12-12 13:31] LABS: Appearance Urine CLEAR; Color Urine STRAW; Glucose Urine UA NEG (NEG); Leukocyte Esterase Urine NEG (NEG); Nitrite Urine NEG (NEG); Specific Gravity - Urine <= 1.005 (1.005-1.025); Urine Blood NEG (NEG); Urine Ketones NEG (NEG); Urine Protein NEG (NEG-TRACE)
[2021-12-12 13:50] LABS: Amphetamine Screen Urine Not Detected (Not Detect); Barbiturates, Urine Not Detected (Not Detect); Benzodiazepines Screen Urine POSITIVE (Not Detect); Cannabinoid Screen Urine Not Detected (Not Detect); Cocaine Screen Urine Not Detected (Not Detect); Fentanyl, urine Not Detected (Not Detect); Opiate Screen Urine Not Detected (Not Detect); Phencyclidine Screen Urine Not Detected (Not Detect)
[2021-12-12 14:21] LABS: MANUAL DIFF FLAG NO
[2021-12-12 14:22] LABS: Basophils Absolute Auto 0.1 X10*3/uL (0.0-0.2); Basophils Percent Auto 1.1 % (0-2); Eosinophils Absolute Auto 0.1 X10*3/uL (0.0-0.4); Eosinophils Percent Auto 1.6 % (0-4); Hematocrit 46.5 % (42.0-52.0); Hemoglobin 16.1 g/dl (14.0-18.0); Imm Gran Abs Auto 0.01 X10*3/uL (0.00-0.03); Imm Gran Pct Auto 0.2 % (0.0-0.4); Lymphocytes Absolute Auto 1.2 X10*3/uL (1.2-4.9); Lymphocytes Percent Auto 26.3 % (20-40); Mean Corpuscular HGB Conc 34.6 g/dl (31.0-36.0); Mean Corpuscular Hemoglobin 31.6 pg (27.0-33.0); Mean Corpuscular Volume 91.2 fL (80.0-98.0); Mean Platelet Volume 9.3 fL (9.4-12.4); Monocytes Absolute Auto 0.4 X10*3/uL (0.1-1.2); Monocytes Percent Auto 9.4 % (2-11); Neutrophils Absolute Auto 2.7 x10*3/uL (2.0-8.3); Neutrophils Percent Auto 61.4 % (45-73); Platelet Count 309 X10*3/uL (160-400); Red Cell Distribution Width 13.8 % (11.0-16.0); White Blood Count 4.5 X10*3/uL (4.8-10.8)
[2021-12-12 14:35] LABS: Ethanol 356 mg/dL
[2021-12-12] MEDS: Haloperidol Lactate 5 MG/ML VIAL IM (14:38)
--- NOTE | 2021-12-12 14:38 | PC.NURSE ---
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 security at bedside, pt escalating further albeit with all staff attempting to verbally deescalate pt. pt willing to take im injection after several minutes of convincing. pt continues to remain awake and alert following medication administration, initially refusing vital signs from nursing staff. will monitor for pt to return to behavioral control.
[2021-12-12 14:44] LABS: IDNOW Serial# 16C4AD1C
[2021-12-12 14:45] LABS: Alanine Aminotransferase 164 U/L (0-40); Albumin Level 4.4 g/dL (3.5-5.0); Alkaline Phosphatase 99 U/L (39-117); Anion Gap 18 (12-20); Aspartate Amino Transferase 97 U/L (5-37); Bilirubin Total 0.6 mg/dL (0.0-1.0); Blood Urea Nitrogen 4 mg/dL (9-16); COVID-19 Test Negative (Negative); Calcium 8.7 mg/dL (8.4-10.2); Carbon Dioxide 21 mmol/L (22-29); Chloride 107 mmol/L (96-108); Creatinine Clr Calc Pharmacy 139.9; Estimated Glomerular Filt Rate > 60; Glucose Random 141 mg/dL (60-115); Magnesium 1.9 mg/dL (1.6-2.6); Potassium 3.5 mmol/L (3.3-5.1); Sodium 142 mmol/L (135-145); Total Protein 7.4 g/dL (6.5-8.0)
[2021-12-13 06:10] VITALS: BP 144/85; PULSE 108; RESP 20; TEMP 37.1; O2SAT 98
[2021-12-13] MEDS: LORazepam 1 MG TABLET 2 MG PO (06:12)
--- NOTE | 2021-12-13 06:41 | PC.NURSE ---
PT appeared to be sleeping on safety checks, PRN 2 mg Ativan given at 0615 due to alcohol withdrawal. PT calm and cooperative. Awaiting consult.
[2021-12-13 10:04] VITALS: BP 137/93; PULSE 100; RESP 14; TEMP 36.8; O2SAT 97
--- NOTE | 2021-12-13 10:55 | PC.NURSE ---
BHN in with pt
--- NOTE | 2021-12-13 11:13 | PC.NURSE ---
Patient given discharge instructions, verbalized understanding, denies SI/HI, gait steady. Patient being picked up by girlfriend. No concerns reported.
== END 2021-12-13 11:21 | disposition home or self-care (01) ==
PROVIDERS: Physician Assistant; Emergency Provider Emergency Medicine
DX: F10.130 Alcohol abuse with withdrawal, uncomplicated (principal); Y90.8 Blood alcohol level of 240 mg/100 ml or more; R45.6 Violent behavior; F41.9 Anxiety disorder, unspecified; Z20.822 Contact with and (suspected) exposure to COVID-19
CPT/HCPCS: 71045; 80053; 80307; 81003; 82077; 83735; 85025; 87635; 96372; 99285

== ENCOUNTER 2022-01-02 15:41 | Outpatient (REF) | payer OTHER, SELFPAY ==
--- NOTE | ~2022-01-02 | XR_ITS ---
EXAMINATION: XR ANKLE, LEFT CLINICAL INFORMATION: M25.572 - Pain in left ankle and joints of left foot COMPARISON: None TECHNIQUE: AP, lateral, and mortise views of the left ankle. FINDINGS: There is hardware in the distal tibia medial side with plate and screws. Hardware is intact. No fracture, dislocation, destructive process, or osteolysis. Ankle mortise is symmetric. Malleoli intact. Talar dome shows no osteochondral lesion. There is no erosive changes. Subtalar joint unremarkable. Retrocalcaneal recess is preserved. Normal bony mineralization. XR/XR ankle LT min 3V IMPRESSION: Unremarkable left ankle. Hardware intact. No osteolysis.
== END 2022-01-02 15:42 | disposition home or self-care (01) ==
LOC: HO.HMGCX 15:41
PROVIDERS: PCP Internal Medicine; Visit Provider Internal Medicine
DX: M25.572 Pain in left ankle and joints of left foot (principal)
CPT/HCPCS: 73610

== ENCOUNTER 2022-08-31 11:02 | Inpatient (IN) | payer OTHER, SELFPAY ==
[2022-08-31 11:07] VITALS: BP 122/60; BP 136/74; PULSE 129; PULSE 133; RESP 26; TEMP 36.6; O2SAT 96; O2SAT 99; BMI 27.6
--- NOTE | 2022-08-31 11:18 | ED.ALCOHOL ---
HPI - Alcohol General Chief Complaint: ETOH/Substance Use Stated Complaint: etoh Time Seen by Provider: 08/31/22 11:07 Source: EMS Mode of arrival: EMS Limitations: no limitations History of Present Illness HPI narrative: 36 yo male with history of alcohol abuse disorder, anxiety here with complaints of alcohol withdrawal. Seeking medication for withdrawal. Not sure about detox and states it doesn't help. No SI/HI. Drinks gallons of vodka daily. Last drink 2 days ago. No additional substance use. Per EMS patient was given 2mg of IV Versed G[employer]. Per EMS they were called by a friend as patient was going through DTs at home. Patient reports little oral intake d/t vomiting. Related Data Home Medications Medication Instructions Recorded Confirmed No Known Home Meds 08/31/22 08/31/22 Allergies Allergy/AdvReac Type Severity Reaction Status Date / Time penicillin V Allergy Unknown anaphylaxis Verified 07/18/22 08:26 Review of Systems Review of Systems: Yes all other systems are reviewed and are negative Constitutional: Constitutional: Reports no additional constitutional complaints, Denies body ache(s), Denies chills, Denies fever(s), Reports headache(s) and Reports weakness Eyes: Eyes: Reports no additional eye complaints and Denies change in vision ENT: Reports system reviewed and no additional complaints, except as documented, Denies dizziness, Reports headache(s), Denies nasal congestion, Denies nasal discharge and Denies neck pain Cardiovascular: Cardiovascular: Reports no additional cardiovascular complaints, Denies chest pain, Reports diaphoresis, Denies leg edema and Denies dyspnea Respiratory: Respiratory: Reports no additional respiratory complaints, Denies cough and Denies dyspnea Gastrointestinal: Gastrointestinal: Reports no additional gastrointestinal complaints, Denies abdominal pain, Denies diarrhea, Reports nausea and Reports vomiting Genitourinary: Genitourinary: Denies urinary incontinence Musculoskeletal: Musculoskeletal: Reports no additional musculoskeletal complaints, Denies back pain, Denies arthralgias, Denies joint swelling, Denies neck pain, Denies numbness and Denies tingling Integumentary/Breasts: Skin/Breast: Reports system reviewed and no additional complaints, except as docu and Denies rash Neurologic: Reports system reviewed and no additional complaints, except as documented, Denies dizziness, Reports headache(s), Denies numbness, Denies tingling and Reports weakness Psychiatric: Psychiatric: Reports anxiety, Denies homicidal ideation and Denies suicidal ideation [facility] Past Medical History Attestation statement: The following information was validated with the patient. Source: old records reviewed and nursing notes reviewed Medical History Alcohol dependence in early full remission Anxiety COVID-19 vaccination declined Left ankle pain Surgical History History of removal of cyst Family History Family History Father Anxiety Mental health disorder Mother Depression Mental health disorder Brother Substance use disorder Mental health disorder Sister Mental health disorder Son No problems noted. Son No problems noted. Paternal Grandfather Substance use disorder Maternal Uncle Substance use disorder Social History Social History Housing: House Alcohol intake: current Alcohol intake frequency: 3 or more drinks per day Alcohol type: beer, wine and hard liquor Patient Tobacco Use Status: Former Tobacco user Years Smoked: 6 months e-Cigarette/Vaping Use: Never Used Second Hand Smoke Exposure: No Substance Use Type: Marijuana and Unknown Advance Directives: No Advance Directives Information Provided: No service: No Current occupational status: employed Physical Exam ED Vital Signs: Vital Signs - 24 hr 08/31/22 11:07 08/31/22 13:49 Temperature 97.9 F 98.1 F Pulse Rate 129 H 130 H Respiratory Rate 26 H 19 Blood Pressure 136/74 125/67 Pulse Oximetry 99 94 Oxygen Delivery Method Room Air Room Air BMI result Body Mass Index 27.6 Const General: alert, anxious and diaphoretic Orientation/consciousness: patient oriented x3 Limitations: no limitations HENMT Head: Yes normal to inspection Ears: hearing grossly normal bilaterally Eyes General: appearance normal, both eyes and all related structures Pupils: Equal, round and reactive pupils present Neck Neck: Yes normal visual inspection and Yes full ROM Chest Chest palpation & inspection: normal inspection of the chest Resp Effort & Inspection: tachypneic (rate 26) Auscultation: clear to auscultation bilaterally Cardio Rate: tachycardic Rhythm: regular rhythm Peripheral pulses: Peripheral pulses 2+ throughout GI Inspection: Yes normal to inspection Palpation (GI): Soft to palpation and nontender Back/Spine/Pelvis Thoracic/Lumbar Spine: thoracic and lumbar spine normal to inspection Skin Other: +diaphoretic Neuro General: patient oriented x3 and moves all extremities Cranial nerves: Yes CN's II-XII intact bilaterally, Yes Equal, round and reactive pupils present, Yes Bilaterally intact EOM present, Yes Nystagmus not present and Yes Normal facial strength present Motor exam (neuro): 5/5 motor strength present throughout Sensory Exam: Normal double simultaneous stimulation for sensation Extrem General: Yes normal to inspection Course Course Course Narrative: CIWA now 13. Will give additional 1 mg of Versed. Patient has an anion gap acidosis. This is likely secondary to alcohol use. Will order VBG, acetone, lactic acid, blood cultures. Patient to receive 100 mg of thiamine and start D5 normal saline. Patient has a leukocytosis which is likely secondary to vomiting and dehydration and not from infection. At this time patient is willing to be admitted to the hospital. Will send UCT Coatings screen Reevaluation(s) Reevaluation #1: Call from dad who spoke to nursing. Patient has been at a friend's house which has no alcohol but per dad he believes the patient drank 32 ounces if isopropyl alcohol, 50 ounces of antiseptic mouthwash, unknown amount of peppermint oil extract, and possible unknown amount of combination window installer in the last 48hrs. Patient denies all of this but reports he drank one small bottle of vanilla extract. Pt denies SI/HI Nursing to call back and obtain additional details and then will call poison control. Reevaluation #2: 1330-elevated lactic acid. From dehydration and not from infection fluids are infusing Reevaluation #3: 1330-Call back from family. The peppermint oil was a nip size. The combination window installer was awesome combination window installer 30 ounce bottle and there is a 1/4 left in the bottle. Patient denies drinking any of this. Nursing however will call poison control. Additional Reevaluation(s): 1500-nursing did speak to poison Control and was given recommendations at 13:50. Unfortunately I was notified now that the patient needs additional levels drawn. There is concern that he may have a toxic alcohol ingestion. I spoke to the poison Control position. They recommended obtaining a serum osmolality with repeat electrolytes now. Patient did also have levels drawn for ethylene glycol and methanol. Patient adamantly denying that he drank combination window installer, isopropyl alcohol, mouthwash or peppermint oil. Insists that he only drank 1 nips of vanilla extract. However father is insistent that patient took these. Additionally patient has an anion gap acidosis which may be from alcoholic ketoacidosis or toxic ingestion of alcohol. Therefore as it is unknown if patient took the ingestion poison Control recommends giving 50 milligrams/kilogram of fomepizole every 12 hours until methanol/ethylen glycol levels are resulted. These are send out labs which poison control tells me are quite common. This was communicated to the medicine team (Dr Hurtado) Medications Administered Generic Name Dose Route Start Last Admin Trade Name Freq PRN Reason Stop Dose Admin Folic Acid 1 mg 08/31/22 15:00 08/31/22 16:03 Folic Acid 1 Mg Tablet PO Not Given DAILY JANEL Lactated Ringer's 1,000 mls @ 125 mls/hr 08/31/22 15:00 08/31/22 17:09 Lr IVCONT 125 mls/hr .Q8H JANEL Administration Multivitamins/Vitamin C 1 tab 08/31/22 15:00 08/31/22 16:00 Multivitamin Tablet PO 1 tab DAILY JANEL Administration Phenobarbital Sodium 247 mg 08/31/22 16:00 08/31/22 15:53 Phenobarbital Sodium 130 Mg/Ml Vial Im Q3hx2 IM 08/31/22 19:01 247 mg Q3H JANEL Administration Sodium Chloride 3 ml 08/31/22 16:00 08/31/22 15:15 0.9 % Sodium Chloride Flush 3 Ml Syringe IVFLUSH 3 ml QSHIFT JANEL Administration Thiamine HCl 100 mg 08/31/22 14:50 08/31/22 16:00 Thiamine Hcl 100 Mg Tablet PO 100 mg DAILY JANEL Administration Discontinued Medications Generic Name Dose Route Start Last Admin Trade Name Freq PRN Reason Stop Dose Admin Sodium Chloride 1,000 mls @ 999 mls/hr 08/31/22 11:19 08/31/22 11:48 Ns IV 08/31/22 12:19 999 mls/hr .Q1H1M STA Administration Thiamine HCl 100 mg/ Sodium 101 mls @ 202 mls/hr 08/31/22 12:14 08/31/22 12:35 Chloride IV 08/31/22 12:43 202 mls/hr STAT STA Administration Dextrose/Sodium Chloride 1,000 mls @ 100 mls/hr 08/31/22 12:15 08/31/22 13:02 D5ns IVCONT 100 mls/hr .Q10H JANEL Administration Sodium Chloride 1,000 mls @ 999 mls/hr 08/31/22 15:00 08/31/22 17:48 Ns IVCONT 08/31/22 17:00 999 mls/hr .Q1H1M JANEL Administration Fomepizole 1,450 mg/ Sodium 101.45 mls @ 202.9 mls/hr 08/31/22 15:27 08/31/22 16:57 Chloride IV 08/31/22 15:56 Infused ONCE STA Infusion Midazolam HCl 1 mg 08/31/22 11:26 08/31/22 11:45 Midazolam Hcl/Pf 2 Mg/2 Ml Vial IVPUSH 08/31/22 11:27 1 mg ONCE ONE Administration Midazolam HCl 1 mg 08/31/22 12:14 08/31/22 12:26 Midazolam Hcl/Pf 2 Mg/2 Ml Vial IVPUSH 08/31/22 12:15 1 mg ONCE ONE Administration Ondansetron HCl 4 mg 08/31/22 13:34 08/31/22 15:01 Ondansetron Hcl 4 Mg/2 Ml Vial IVPUSH 08/31/22 13:35 4 mg ONCE ONE Administration Ondansetron HCl 4 mg 08/31/22 15:10 08/31/22 15:14 Ondansetron Hcl 4 Mg/2 Ml Vial IVPUSH 08/31/22 15:11 4 mg ONCE ONE Administration Phenobarbital Sodium 330 mg 08/31/22 12:30 08/31/22 12:44 Phenobarbital Sodium 130 Mg/Ml Im Once IM 08/31/22 12:31 330 mg ONCE ONE Administration MDM - Alcohol MDM Narrative Medical decision making narrative: 36 yo male with history of alcohol use disorder here with complaints of headache, nausea, vomiting, anxiety, diaphoresis with last drink 2-3 days ago. Likely alcohol withdrawal. No concern for acute ingestion or trauma. Will need labs, EKG, PATTERSON, IVF, midazalam Per nursing initial CIWA 18. To give IV versed and re-assess shortly. Would like to start phenobarb protocol but patient is unsure he would like to stay Medical Records Attestation: I reviewed the patient's medical records. Lab Data Attestation: I reviewed the patient's lab results. Result diagrams: 08/31/22 11:40 08/31/22 15:15 Labs: Lab Results 08/31/22 08/31/22 08/31/22 Range/Units 11:40 11:40 11:40 WBC 20.2 H (4.8-10.8) X10*3/uL RBC 5.58 (4.60-5.80) X10*6/uL Hgb 16.4 (14.0-18.0) g/dl Hct 45.8 (42.0-52.0) % MCV 82.1 (80.0-98.0) fL MCH 29.4 (27.0-33.0) pg MCHC 35.8 (31.0-36.0) g/dl RDW 13.4 (11.0-16.0) % Plt Count 323 (160-400) X10*3/uL MPV 8.5 L (9.4-12.4) fL Immature Gran % (Auto) 0.4 (0.0-0.4) % Neut % (Auto) 90.1 H (45-73) % Lymph % (Auto) 5.9 L (20-40) % [place] % (Auto) 3.2 (2-11) % Eos % (Auto) 0.1 (0-4) % Baso % (Auto) 0.3 (0-2) % Lymph # (Auto) 1.2 (1.2-4.9) X10*3/uL [place] # (Auto) 0.7 (0.1-1.2) X10*3/uL Eos # (Auto) 0.0 (0.0-0.4) X10*3/uL Baso # (Auto) 0.1 (0.0-0.2) X10*3/uL Abs Immat Gran (auto) 0.08 H (0.00-0.03) X10*3/uL Absolute Neuts (auto) 18.2 H (2.0-8.3) x10*3/uL Absolute Nucleated RBC 0.000 (0.0-0.012) X10*3/uL Nucleated RBC % (auto) 0.0 (0.0-0.2) /100WBC Smear Tech's Comments VERIFIED VBG pH (7.32-7.43) VBG pCO2 mmHg VBG pO2 mmHg VBG HCO3 (22-26) mmol/L VBG O2 Saturation % VBG Base Excess mmol/L Sodium 140 (135-145) mmol/L Potassium 3.7 (3.3-5.1) mmol/L Chloride 100 (96-108) mmol/L Carbon Dioxide 19 L (22-29) mmol/L Anion Gap 25 H (12-20) BUN 12 D (9-16) mg/dL Creatinine 1.18 (0.5-1.4) mg/dL Estim Creat Clear Calc 99.6 Estimated GFR > 60 Random Glucose 144 H (60-115) mg/dL Lactic Acid (0.5-2.0) mmol/L Calcium 8.7 (8.4-10.2) mg/dL Magnesium 1.9 (1.6-2.6) mg/dL Total Bilirubin 0.8 (0.0-1.0) mg/dL Direct Bilirubin 0.3 (0.0-0.5) mg/dL AST 45 H D (5-37) U/L ALT 47 H (0-40) U/L Alkaline Phosphatase 81 (39-117) U/L Total Protein 6.8 (6.5-8.0) g/dL Albumin 4.3 (3.5-5.0) g/dL Salicylates < 5.0 L (15-30) mg/dL Acetaminophen < 1 (<30) mcg/mL Ethyl Alcohol < 10 mg/dL Acetone, Qual (Negative) COVID-19 (ESTEFNAÍA) (Negative) COVID-19 Clin Com 08/31/22 08/31/22 08/31/22 Range/Units 12:34 12:34 12:39 WBC (4.8-10.8) X10*3/uL RBC (4.60-5.80) X10*6/uL Hgb (14.0-18.0) g/dl Hct (42.0-52.0) % MCV (80.0-98.0) fL MCH (27.0-33.0) pg MCHC (31.0-36.0) g/dl RDW (11.0-16.0) % Plt Count (160-400) X10*3/uL MPV (9.4-12.4) fL Immature Gran % (Auto) (0.0-0.4) % Neut % (Auto) (45-73) % Lymph % (Auto) (20-40) % [place] % (Auto) (2-11) % Eos % (Auto) (0-4) % Baso % (Auto) (0-2) % Lymph # (Auto) (1.2-4.9) X10*3/uL [place] # (Auto) (0.1-1.2) X10*3/uL Eos # (Auto) (0.0-0.4) X10*3/uL Baso # (Auto) (0.0-0.2) X10*3/uL Abs Immat Gran (auto) (0.00-0.03) X10*3/uL Absolute Neuts (auto) (2.0-8.3) x10*3/uL Absolute Nucleated RBC (0.0-0.012) X10*3/uL Nucleated RBC % (auto) (0.0-0.2) /100WBC Smear Tech's Comments VBG pH 7.53 H (7.32-7.43) VBG pCO2 25 mmHg VBG pO2 63 mmHg VBG HCO3 21 L (22-26) mmol/L VBG O2 Saturation 92.0 % VBG Base Excess 0.7 mmol/L Sodium (135-145) mmol/L Potassium (3.3-5.1) mmol/L Chloride (96-108) mmol/L Carbon Dioxide (22-29) mmol/L Anion Gap (12-20) BUN (9-16) mg/dL Creatinine (0.5-1.4) mg/dL Estim Creat Clear Calc Estimated GFR Random Glucose (60-115) mg/dL Lactic Acid 4.1 H* (0.5-2.0) mmol/L Calcium (8.4-10.2) mg/dL Magnesium (1.6-2.6) mg/dL Total Bilirubin (0.0-1.0) mg/dL Direct Bilirubin (0.0-0.5) mg/dL AST (5-37) U/L ALT (0-40) U/L Alkaline Phosphatase (39-117) U/L Total Protein (6.5-8.0) g/dL Albumin (3.5-5.0) g/dL Salicylates (15-30) mg/dL Acetaminophen (<30) mcg/mL Ethyl Alcohol mg/dL Acetone, Qual Negative (Negative) COVID-19 (ESTEFANÍA) (Negative) COVID-19 Clin Com 08/31/22 Range/Units 12:40 WBC (4.8-10.8) X10*3/uL RBC (4.60-5.80) X10*6/uL Hgb (14.0-18.0) g/dl Hct (42.0-52.0) % MCV (80.0-98.0) fL MCH (27.0-33.0) pg MCHC (31.0-36.0) g/dl RDW (11.0-16.0) % Plt Count (160-400) X10*3/uL MPV (9.4-12.4) fL Immature Gran % (Auto) (0.0-0.4) % Neut % (Auto) (45-73) % Lymph % (Auto) (20-40) % [place] % (Auto) (2-11) % Eos % (Auto) (0-4) % Baso % (Auto) (0-2) % Lymph # (Auto) (1.2-4.9) X10*3/uL [place] # (Auto) (0.1-1.2) X10*3/uL Eos # (Auto) (0.0-0.4) X10*3/uL Baso # (Auto) (0.0-0.2) X10*3/uL Abs Immat Gran (auto) (0.00-0.03) X10*3/uL Absolute Neuts (auto) (2.0-8.3) x10*3/uL Absolute Nucleated RBC (0.0-0.012) X10*3/uL Nucleated RBC % (auto) (0.0-0.2) /100WBC Smear Tech's Comments VBG pH (7.32-7.43) VBG pCO2 mmHg VBG pO2 mmHg VBG HCO3 (22-26) mmol/L VBG O2 Saturation % VBG Base Excess mmol/L Sodium (135-145) mmol/L Potassium (3.3-5.1) mmol/L Chloride (96-108) mmol/L Carbon Dioxide (22-29) mmol/L Anion Gap (12-20) BUN (9-16) mg/dL Creatinine (0.5-1.4) mg/dL Estim Creat Clear Calc Estimated GFR Random Glucose (60-115) mg/dL Lactic Acid (0.5-2.0) mmol/L Calcium (8.4-10.2) mg/dL Magnesium (1.6-2.6) mg/dL Total Bilirubin (0.0-1.0) mg/dL Direct Bilirubin (0.0-0.5) mg/dL AST (5-37) U/L ALT (0-40) U/L Alkaline Phosphatase (39-117) U/L Total Protein (6.5-8.0) g/dL Albumin (3.5-5.0) g/dL Salicylates (15-30) mg/dL Acetaminophen (<30) mcg/mL Ethyl Alcohol mg/dL Acetone, Qual (Negative) COVID-19 (ESTEFANÍA) Negative (Negative) COVID-19 Clin Com See Note ECG Data ECG #1: Attestation: I personally reviewed and interpreted this ECG as follows: ECG interpretation date: 08/31/22 ECG interpretation time: 11:30 Interpretation: S tachycardia with a rate of 124, normal IA, normal QRS, normal QT Critical Care Time Critical Care Time Critical Care Time: Yes Total Critical Care Time: 90 Attestation: Discussion with Medicine team for admission, discussion with family, discussion with poison Control Center, re-evaluations for withdrawal symptoms Discharge Plan Discharge Clinical Impression: Alcoholic ketoacidosis Patient Disposition: Admitted As Inpatient
--- NOTE | 2022-08-31 11:19 | ECG_ITS ---
Test Reason : ETOH WITHDRAWL Blood Pressure : / mmHG Vent. Rate : 124 BPM Atrial Rate : 124 BPM P-R Int : 138 ms QRS Dur : 092 ms QT Int : 306 ms P-R-T Axes : 054 -04 020 degrees QTc Int : 439 ms Sinus tachycardia Intra-ventricular conduction delay Left axis deviation Borderline ECG When compared with ECG of 06-SEP-2020 23:45, Questionable change in QRS axis Heart rate has increased Referred By: Sera Contreras Electronically Signed By:LACEY ANGELES MD
[2022-08-31 11:45] LABS: Basophils Absolute Auto 0.1 X10*3/uL (0.0-0.2); Basophils Percent Auto 0.3 % (0-2); Eosinophils Percent Auto 0.1 % (0-4); Hematocrit 45.8 % (42.0-52.0); Hemoglobin 16.4 g/dl (14.0-18.0); Imm Gran Abs Auto 0.08 X10*3/uL (0.00-0.03); Imm Gran Pct Auto 0.4 % (0.0-0.4); Lymphocytes Absolute Auto 1.2 X10*3/uL (1.2-4.9); Lymphocytes Percent Auto 5.9 % (20-40); MANUAL DIFF FLAG SCAN; Mean Corpuscular HGB Conc 35.8 g/dl (31.0-36.0); Mean Corpuscular Hemoglobin 29.4 pg (27.0-33.0); Mean Corpuscular Volume 82.1 fL (80.0-98.0); Mean Platelet Volume 8.5 fL (9.4-12.4); Monocytes Absolute Auto 0.7 X10*3/uL (0.1-1.2); Monocytes Percent Auto 3.2 % (2-11); Neutrophils Absolute Auto 18.2 x10*3/uL (2.0-8.3); Neutrophils Percent Auto 90.1 % (45-73); Platelet Count 323 X10*3/uL (160-400); Red Blood Count 5.58 X10*6/uL (4.60-5.80); Red Cell Distribution Width 13.4 % (11.0-16.0); SCAN SMEAR FLAG 1; White Blood Count 20.2 X10*3/uL (4.8-10.8)
[2022-08-31] MEDS: Midazolam HCl/PF 2 MG/2 ML VIAL 1 MG IVPUSH ×2 (11:45→12:26)
[2022-08-31] MEDS: 0.9 % Sodium Chloride 1,000 ML 999 ML IV (11:48)
[2022-08-31 12:00] LABS: Ethanol < 10 mg/dL
[2022-08-31 12:03] LABS: SLIDE REVIEW VERIFIED
[2022-08-31 12:06] LABS: Alanine Aminotransferase 47 U/L (0-40); Albumin Level 4.3 g/dL (3.5-5.0); Alkaline Phosphatase 81 U/L (39-117); Anion Gap 25 (12-20); Aspartate Amino Transferase 45 U/L (5-37); Bilirubin Direct 0.3 mg/dL (0.0-0.5); Bilirubin Total 0.8 mg/dL (0.0-1.0); Blood Urea Nitrogen 12 mg/dL (9-16); Calcium 8.7 mg/dL (8.4-10.2); Carbon Dioxide 19 mmol/L (22-29); Chloride 100 mmol/L (96-108); Creatinine Clr Calc Pharmacy 99.6; Estimated Glomerular Filt Rate > 60; Glucose Random 144 mg/dL (60-115); Magnesium 1.9 mg/dL (1.6-2.6); Potassium 3.7 mmol/L (3.3-5.1); Sodium 140 mmol/L (135-145); Total Protein 6.8 g/dL (6.5-8.0)
[2022-08-31] MEDS: Thiamine HCL 100 MG in 0.9 % Sodium Chloride 100 ML 202 MG IV (12:35)
[2022-08-31] MEDS: PHENobarbitaL sodium 130 MG/ML IM ONCE 330 MG IM (12:44)
[2022-08-31 12:45] LABS: VBG Base Excess 0.7 mmol/L; VBG HCO3 21 mmol/L (22-26); VBG pCO2 25 mmHg; VBG pH 7.53 (7.32-7.43); VBG pO2 63 mmHg
[2022-08-31 12:52] LABS: Venous Blood Gas Refer to POC result
[2022-08-31 13:01] LABS: COVID-19 Test Negative (Negative); IDNOW Serial# 55D5AD1C
[2022-08-31] MEDS: Dextrose 5 % and 0.9 % NaCl 1,000 ML 100 ML IVCONT (13:02)
[2022-08-31 13:10] LABS: Acetone, serum QL Negative (Negative)
--- NOTE | 2022-08-31 13:16 | PHA.MEDREC ---
Pharmacy Consult ? Medication Reconciliation Pharmacy has completed the medication reconciliation. Spoke with patient in ED , he states he is not on any medications
[2022-08-31 13:20] LABS: Lactic Acid 4.1 mmol/L (0.5-2.0)
[2022-08-31 13:26] LABS: Acetaminophen LAB < 1 mcg/mL (<30); Salicylate < 5.0 mg/dL (15-30)
[2022-08-31 13:49] VITALS: BP 125/67; PULSE 130; RESP 19; TEMP 36.7; O2SAT 94
--- NOTE | 2022-08-31 13:52 | PC.NURSE ---
spoke to Poison control, they want serum pedro pablo, lytes, tylenol level,mag,phos, lft's. have ethyl and methyl alcohol levels done and have sent out to [facility]
[2022-08-31 14:39] LABS: Reflex Lactate? Lactic Acid Added
[2022-08-31 14:49] VITALS: BP 118/66; PULSE 140; RESP 21; TEMP 36.7; O2SAT 94
--- NOTE | 2022-08-31 14:51 | P.HPHOSP_ITS ---
History of Present Illness Date of Service: 08/31/22 Chief Complaint: alcohol withdrawal 36yo M with AUD and anxiety disorder [formerly on alprazolam] who drinks gallons of vodka daily. Thinks last drink was about 2d ago. Denies other substance abuse. He's been vomiting at home and has been tremulous and anxious. No LOC or seizure. His friend call the paramedics and they gave him 2 mg of IV midazolam. In the ED, he was noted to be tachycardic and tachypneic with WBC count of 20.2. Lactate is 4.1 and serum bicarbonate 19. AST 45, ALT 47. He was given another 2 mg of IV midozolam along with IV thiamine and IV fluids. He was then started on a phenobarbital tape Review of Systems Review of Systems: Yes all other systems are reviewed and are negative [facility] Medical History Alcohol dependence in early full remission Anxiety COVID-19 vaccination declined Left ankle pain Family History Father Anxiety Mental health disorder Mother Depression Mental health disorder Brother Substance use disorder Mental health disorder Sister Mental health disorder Son No problems noted. Son No problems noted. Paternal Grandfather Substance use disorder Maternal Uncle Substance use disorder Surgical History History of removal of cyst Social History Housing: House Alcohol intake: current Alcohol intake frequency: 3 or more drinks per day Alcohol type: beer, wine and hard liquor Patient Tobacco Use Status: Former Tobacco user Years Smoked: 6 months e-Cigarette/Vaping Use: Never Used Second Hand Smoke Exposure: No Substance Use Type: Marijuana and Unknown Advance Directives: No Advance Directives Information Provided: No service: No Current occupational status: employed Meds Allergies Allergy/AdvReac Type Severity Reaction Status Date / Time penicillin V Allergy Unknown anaphylaxis Verified 07/18/22 08:26 Active Medications: Current Medications Acetaminophen (Acetaminophen 325 Mg Tablet) 650 mg PO Q6H PRN PRN Reason: Pain, Mild (Pain Scale 1-3) Folic Acid (Folic Acid 1 Mg Tablet) 1 mg PO DAILY JANEL Lactated Ringer's (Lr) 1,000 mls @ 125 mls/hr IVCONT .Q8H [facility] Sodium Chloride (Ns) 1,000 mls @ 999 mls/hr IVCONT .Q1H1M [facility] Stop: 08/31/22 17:00 Multivitamins/Vitamin C (Multivitamin Tablet) 1 tab PO DAILY [facility] Pharmacy Consult (Consult Rx Perform Med Rec) 1 each MISCELLANE ONCE PRN PRN Reason: Consult order Pharmacy Consult (Consult Rx Etoh Phenob Im/Po) 1 each MISCELLANE ONCE PRN; Protocol PRN Reason: Consult order Phenobarbital (Phenobarbital 30 Mg Tablet) 60 mg PO BID [facility] Stop: 09/02/22 21:01 Phenobarbital (Phenobarbital 30 Mg Tablet) 30 mg PO BID [facility] Stop: 09/04/22 21:01 Phenobarbital (Phenobarbital 30 Mg Tablet) 30 mg PO DAILY [facility] Stop: 09/06/22 09:01 Phenobarbital Sodium (Phenobarbital Sodium 130 Mg/Ml Vial Im Q3hx2) 247 mg IM Q3H [facility] Stop: 08/31/22 19:01 Sodium Chloride (0.9 % Sodium Chloride Flush 3 Ml Syringe) 3 ml IVFLUSH QSHIFT [facility] Thiamine HCl (Thiamine Hcl 100 Mg Tablet) 100 mg PO DAILY [facility] Home Medications Medication Instructions Recorded Confirmed Last Taken Type No Known Home Meds 08/31/22 08/31/22 Unknown History Physical Exam Vital Signs and Narrative: Vital Signs: Last Vital Signs Temp 98.1 F 08/31/22 14:49 Pulse 140 H 08/31/22 14:49 Resp 21 H 08/31/22 14:49 BP 118/66 08/31/22 14:49 Pulse Ox 94 08/31/22 14:49 O2 Del Method 08/31/22 14:49 BMI result Body Mass Index 27.6 Gen: anxious, tremulous HEENT: sclera anicteric, moist mucus membranes Neck: supple Lungs: clear to auscultation bilaterally Heart: regular, tachycardic, no murmurs Abd: soft, non-tender, non-distended Ext: no edema Skin: warm/well-perfused Neuro: alert and oriented x3, no focal findings Psych: appropriate affect Results Labs CBC and Chem 7: 08/31/22 11:40 08/31/22 11:40 Labs: Laboratory Results - last 24 hr 1108/31/22 08/31/22 11:40 11:40 11:40 MCV 82.1 MCH 29.4 MCHC 35.8 RDW 13.4 Plt Count 323 MPV 8.5 L Immature Gran % (Auto) 0.4 Neut % (Auto) 90.1 H Lymph % (Auto) 5.9 L [place] % (Auto) 3.2 Eos % (Auto) 0.1 Baso % (Auto) 0.3 Lymph # (Auto) 1.2 [place] # (Auto) 0.7 Eos # (Auto) 0.0 Baso # (Auto) 0.1 Abs Immat Gran (auto) 0.08 H Absolute Neuts (auto) 18.2 H Absolute Nucleated RBC 0.000 Nucleated RBC % (auto) 0.0 Smear Tech's Comments VERIFIED VBG pH VBG pCO2 VBG pO2 VBG HCO3 VBG O2 Saturation VBG Base Excess Anion Gap 25 H Estim Creat Clear Calc 99.6 Estimated GFR > 60 Random Glucose 144 H Lactic Acid Calcium 8.7 Magnesium 1.9 Total Bilirubin 0.8 Direct Bilirubin 0.3 AST 45 H D ALT 47 H Alkaline Phosphatase 81 Total Protein 6.8 Albumin 4.3 Salicylates < 5.0 L Acetaminophen < 1 Ethyl Alcohol < 10 Acetone, Qual COVID-19 (ESTEFANÍA) COVID-19 [employer] 08/31/22 08/31/22 08/31/22 12:34 12:34 12:39 MCV MCH MCHC RDW Plt Count MPV Immature Gran % (Auto) Neut % (Auto) Lymph % (Auto) [place] % (Auto) Eos % (Auto) Baso % (Auto) Lymph # (Auto) [place] # (Auto) Eos # (Auto) Baso # (Auto) Abs Immat Gran (auto) Absolute Neuts (auto) Absolute Nucleated RBC Nucleated RBC % (auto) Smear Tech's Comments VBG pH 7.53 H VBG pCO2 25 VBG pO2 63 VBG HCO3 21 L VBG O2 Saturation 92.0 VBG Base Excess 0.7 Anion Gap Estim Creat Clear Calc Estimated GFR Random Glucose Lactic Acid 4.1 H* Calcium Magnesium Total Bilirubin Direct Bilirubin AST ALT Alkaline Phosphatase Total Protein Albumin Salicylates Acetaminophen Ethyl Alcohol Acetone, Qual Negative COVID-19 (ESTEFANÍA) COVID-19 [employer] 08/31/22 12:40 MCV MCH MCHC RDW Plt Count MPV Immature Gran % (Auto) Neut % (Auto) Lymph % (Auto) [place] % (Auto) Eos % (Auto) Baso % (Auto) Lymph # (Auto) [place] # (Auto) Eos # (Auto) Baso # (Auto) Abs Immat Gran (auto) Absolute Neuts (auto) Absolute Nucleated RBC Nucleated RBC % (auto) Smear Tech's Comments VBG pH VBG pCO2 VBG pO2 VBG HCO3 VBG O2 Saturation VBG Base Excess Anion Gap Estim Creat Clear Calc Estimated GFR Random Glucose Lactic Acid Calcium Magnesium Total Bilirubin Direct Bilirubin AST ALT Alkaline Phosphatase Total Protein Albumin Salicylates Acetaminophen Ethyl Alcohol Acetone, Qual COVID-19 (ESTEFANÍA) Negative COVID-19 Clin Com See Note Assessment and Plan (1) Alcoholic ketoacidosis: Status: Acute Plan 36yo M with severe AUD presenting with acute EtOH withdrawal # EtOH withdrawal - admit to IMC, give phenobarbital taper, folate/thiamine/multivitamin, Addiction Medicine consultation # transaminasemia - likely due to EtOH but will screen for HBV/HCV # lactic acidosis - suspect due to dehydration. give aggressive IV isotonic fluid repletion. # leukocytosis - suspect reactive, not infectious or septic. recheck CBC in AM. # VTE prophylaxis: SCDs # code status: full I anticipate that the patient will stay at least 2 midnights as an inpatient in the hospital due to the above reasons. It is neither reasonable nor safe to care for them in a less acute setting. Quality Stroke Does the patient have a stroke diagnosis?: No VTE Prior VTE?: No VTE Risk Level:: Medical - moderate - high VTE Device Contraindication: N/A - Device Ordered VTE Drug Contraindication: N/A - Med Ordered
[2022-08-31] MEDS: ondansetron HCL 4 MG/2 ML VIAL IVPUSH ×3 (15:01→23:05)
[2022-08-31] MEDS: 0.9 % Sodium Chloride Flush 3 ML SYRINGE IVFLUSH (15:15)
[2022-08-31 15:45] LABS: Alanine Aminotransferase 47 U/L (0-40); Albumin Level 4.2 g/dL (3.5-5.0); Alkaline Phosphatase 78 U/L (39-117); Anion Gap 19 (12-20); Aspartate Amino Transferase 47 U/L (5-37); Bilirubin Direct 0.4 mg/dL (0.0-0.5); Bilirubin Total 0.9 mg/dL (0.0-1.0); Blood Urea Nitrogen 11 mg/dL (9-16); Calcium 8.5 mg/dL (8.4-10.2); Chloride 102 mmol/L (96-108); Creatinine Clr Calc Pharmacy 89.7; Estimated Glomerular Filt Rate > 60; Glucose Random 163 mg/dL (60-115); Potassium 3.7 mmol/L (3.3-5.1); Sodium 138 mmol/L (135-145); Total Protein 6.7 g/dL (6.5-8.0)
[2022-08-31] MEDS: PHENobarbitaL sodium 130 MG/ML VIAL IM Q3Hx2 247 MG IM ×2 (15:53→19:16)
[2022-08-31] MEDS: Multivitamin TABLET 1 TAB PO (16:00)
[2022-08-31] MEDS: Thiamine HCL 100 MG TABLET PO (16:00)
[2022-08-31 16:03] LABS: Carbon Dioxide 21 mmol/L (22-29)
[2022-08-31 16:05] LABS: ~Lactic Acid-LAB USE ONLY 3.7 mmol/L (0.5-2.0)
[2022-08-31 16:22] LABS: Ammonia 34 umol/L (13-55)
[2022-08-31 17:01] LABS: Osmolality, Serum 331 mosm/kg (281-305)
[2022-08-31] MEDS: Lactated Ringers 1,000 ML 125 ML IVCONT (17:09)
[2022-08-31 17:19] LABS: Reflex Lactate? 2 Y
[2022-08-31] MEDS: 0.9 % Sodium Chloride 1,000 ML 999 ML IVCONT ×2 (17:48→19:07)
[2022-08-31 19:19] LABS: ~Lactic Acid-LAB USE ONLY 1.4 mmol/L (0.5-2.0)
[2022-08-31 19:22] VITALS: BP 139/92; PULSE 114; RESP 22; O2SAT 97
[2022-08-31 20:39] LABS: Appearance Urine Clear; Color Urine Yellow; Glucose Urine UA Negative (Negative); Leukocyte Esterase Urine Negative (Negative); Nitrite Urine Negative (Negative); Specific Gravity - Urine <= 1.005 (1.005-1.025); Urine Blood Negative (Negative); Urine Ketones Negative (Negative); Urine Protein Negative (Neg-Trace)
--- NOTE | 2022-08-31 21:42 | PC.NURSE ---
Telephone call from Poison Control-updated on pt's vital signs and labs-no new orders at this time.
--- NOTE | 2022-08-31 22:36 | ECG_ITS ---
Test Reason : CHEST PAIN Blood Pressure : / mmHG Vent. Rate : 134 BPM Atrial Rate : 134 BPM P-R Int : 138 ms QRS Dur : 084 ms QT Int : 302 ms P-R-T Axes : 034 -42 015 degrees QTc Int : 450 ms Sinus tachycardia Left axis deviation Abnormal ECG When compared with ECG of 31-AUG-2022 11:30, No significant change was found Referred By: Sera Contreras Electronically Signed By:LACEY ANGELES MD
[2022-08-31 22:52] VITALS: BP 134/79
[2022-08-31] MEDS: LORazepam 1 MG TABLET PO (23:05)
--- NOTE | 2022-08-31 23:11 | PC.NURSE ---
Patient reports burning chest, nausea, feeling very anxious. Patient is restless, tossing and turning in bed. VS: P 110, RR 12, O2 Sat 97% RA, BP 134/79. Dr. Wells informed, EKG performed per MD orders. Sinus Tachy. Lorazepam 1 mg PO and Zofran IV push administered. Effect pending.
[2022-09-01] MEDS: Lactated Ringers 1,000 ML 125 ML IVCONT ×2 (01:50→09:10)
[2022-09-01] MEDS: LORazepam 1 MG TABLET PO (02:52)
[2022-09-01 03:07] LABS: Analysis Performed on: WHOLE BLOOD; Methyl Alcohol Level NONE DETECTED (NONE DETECTED)
--- NOTE | 2022-09-01 03:23 | PC.NURSE ---
Nurse to nurse report given to SUE Solares at S3, patient to be transported to bed 358 by polysomnography tech.
[2022-09-01 03:27] LABS: Ethylene Glycol NONE DETECTED (NONE DETECTED)
[2022-09-01 03:53] VITALS: BP 134/80; PULSE 101; RESP 18; TEMP 37.2; O2SAT 97
--- NOTE | 2022-09-01 07:24 | PC.NURSE ---
Patient is a new admission alert and oriented x3. He shows mild signs of anxiety upon arrival, having received Ativan in the ER prior to arrival on unit. CIWA score remain at 13. Poison control Rep Emili called to ensure discontinuation of IV Fomepizole due to negative Toxicology results. Utilities Service Investigator Dr Wells notified.
[2022-09-01 07:33] VITALS: BP 118/69; PULSE 79; RESP 18; TEMP 36.8; O2SAT 96
[2022-09-01 08:42] LABS: Hematocrit 37.9 % (42.0-52.0); Hemoglobin 13.4 g/dl (14.0-18.0); Mean Corpuscular HGB Conc 35.4 g/dl (31.0-36.0); Mean Corpuscular Hemoglobin 29.7 pg (27.0-33.0); Mean Platelet Volume 8.7 fL (9.4-12.4); Platelet Count 225 X10*3/uL (160-400); Red Blood Count 4.51 X10*6/uL (4.60-5.80); Red Cell Distribution Width 13.6 % (11.0-16.0); White Blood Count 8.6 X10*3/uL (4.8-10.8)
[2022-09-01] MEDS: PHENobarbitaL 30 MG TABLET 60 MG PO ×2 (08:43→20:49)
[2022-09-01] MEDS: Thiamine HCL 100 MG TABLET PO (08:44)
[2022-09-01] MEDS: Multivitamin TABLET 1 TAB PO (08:44)
[2022-09-01 09:34] LABS: Alanine Aminotransferase 39 U/L (0-40); Albumin Level 3.6 g/dL (3.5-5.0); Alkaline Phosphatase 66 U/L (39-117); Anion Gap 15 (12-20); Aspartate Amino Transferase 50 U/L (5-37); Blood Urea Nitrogen 8 mg/dL (9-16); Carbon Dioxide 23 mmol/L (22-29); Chloride 105 mmol/L (96-108); Creatinine Clr Calc Pharmacy 136.7; Estimated Glomerular Filt Rate > 60; Glucose Random 98 mg/dL (60-115); Magnesium 2.3 mg/dL (1.6-2.6); Potassium 3.7 mmol/L (3.3-5.1); Sodium 139 mmol/L (135-145); Total Protein 5.6 g/dL (6.5-8.0)
[2022-09-01 09:39] LABS: ~HepC Num1 0.08 S/CO (0.00-0.79); ~Hepatitis C Antibody Nonreactive (Nonreactive)
[2022-09-01 09:51] LABS: HBc Num1 0.16 S/CO (0.00-0.79); Hepatitis B Core Antibody Nonreactive (Nonreactive); Hepatitis B Surface Antigen Negative (Negative)
[2022-09-01 10:04] LABS: ~Hepatitis B Surface Antibody REACTIVE (Nonreactive)
[2022-09-01] MEDS: busPIRone HCl 5 MG TABLET PO ×3 (10:06→20:49)
--- NOTE | 2022-09-01 10:28 | HO.PM.IMPN ---
Subjective Subjective Date of Service: 09/01/22 Interval History: Toxic alcohol levels negative; fomepizole discontinued Endorses anxiety but improved from yesterday Interested in MAT No abd pain/N/V Review of Systems Review of Systems: Yes all other systems are reviewed and are negative Physical Exam Vital Signs: Vital Signs: Last Vital Signs Temp 98.2 F 09/01/22 07:33 Pulse 79 09/01/22 07:33 Resp 18 09/01/22 07:33 BP 118/69 09/01/22 07:33 Pulse Ox 96 09/01/22 07:33 O2 Del Method 09/01/22 07:33 BMI result Body Mass Index 27.6 Gen: in no acute distress, disheveled HEENT: sclera anicteric, moist mucus membranes Neck: supple Lungs: clear to auscultation bilaterally Heart: regular rate and rhythm, no murmurs Abd: soft, non-tender, non-distended Ext: no edema Skin: warm/well-perfused Neuro: alert and oriented x3, no focal findings Psych: anxious Objective Data Active Medications Acetaminophen (Acetaminophen 325 Mg Tablet) 650 mg PO Q6H PRN PRN Reason: Pain, Mild (Pain Scale 1-3) Buspirone HCl (Buspirone Hcl 5 Mg Tablet) 5 mg PO TID [facility] Last Admin: 09/01/22 10:06 Dose: 5 mg Documented By: ZACHARY Folic Acid (Folic Acid 1 Mg Tablet) 1 mg PO DAILY [facility] Last Admin: 09/01/22 08:44 Dose: Not Given Documented By: ZACHARY Non-Admin Reason: Patient Refused Multivitamins/Vitamin C (Multivitamin Tablet) 1 tab PO DAILY [facility] Last Admin: 09/01/22 08:44 Dose: 1 tab Documented By: ZACHARY Ondansetron HCl (Ondansetron Hcl 4 Mg/2 Ml Vial) 4 mg IVPUSH Q4H PRN PRN Reason: Nausea and Vomiting Last Admin: 08/31/22 23:05 Dose: 4 mg Documented By: ITALO Pharmacy Consult (Consult Rx Perform Med Rec) 1 each MISCELLANE ONCE PRN PRN Reason: Consult order Pharmacy Consult (Consult Rx Etoh Phenob Im/Po) 1 each MISCELLANE ONCE PRN; Protocol PRN Reason: Consult order Phenobarbital (Phenobarbital 30 Mg Tablet) 60 mg PO BID [facility] Stop: 09/02/22 21:01 Last Admin: 09/01/22 08:43 Dose: 60 mg Documented By: ZACHARY Phenobarbital (Phenobarbital 30 Mg Tablet) 30 mg PO BID [facility] Stop: 09/04/22 21:01 Phenobarbital (Phenobarbital 30 Mg Tablet) 30 mg PO DAILY [facility] Stop: 09/06/22 09:01 Sodium Chloride (0.9 % Sodium Chloride Flush 3 Ml Syringe) 3 ml IVFLUSH QSHIFT [facility] Last Admin: 09/01/22 08:51 Dose: Not Given Documented By: ZACHARY Non-Admin Reason: IV Running Thiamine HCl (Thiamine Hcl 100 Mg Tablet) 100 mg PO DAILY [facility] Last Admin: 09/01/22 08:44 Dose: 100 mg Documented By: ZACHARY Labs CBC & Chem 7: 09/01/22 08:28 09/01/22 08:28 Labs: Laboratory Results - last 24 hr 08/31/22 08/31/22 08/31/22 11:40 11:40 11:40 MCV 82.1 MCH 29.4 MCHC 35.8 RDW 13.4 Plt Count 323 MPV 8.5 L Immature Gran % (Auto) 0.4 Neut % (Auto) 90.1 H Lymph % (Auto) 5.9 L [place] % (Auto) 3.2 Eos % (Auto) 0.1 Baso % (Auto) 0.3 Lymph # (Auto) 1.2 [place] # (Auto) 0.7 Eos # (Auto) 0.0 Baso # (Auto) 0.1 Abs Immat Gran (auto) 0.08 H Absolute Neuts (auto) 18.2 H Absolute Nucleated RBC 0.000 Nucleated RBC % (auto) 0.0 Smear Tech's Comments VERIFIED VBG pH VBG pCO2 VBG pO2 VBG HCO3 VBG O2 Saturation VBG Base Excess Anion Gap 25 H Estim Creat Clear Calc 99.6 Estimated GFR > 60 Random Glucose 144 H Osmolality Lactic Acid Lactic Acid F/U @ 2Hr Lactic Acid F/U @ 4Hr Calcium 8.7 Magnesium 1.9 Total Bilirubin 0.8 Direct Bilirubin 0.3 AST 45 H D ALT 47 H Alkaline Phosphatase 81 Ammonia Total Protein 6.8 Albumin 4.3 Urine Color Urine Appearance Urine pH Ur Specific [place] Urine Protein Urine Glucose (UA) Urine Ketones Urine Blood Urine Nitrite Ur Leukocyte Esterase Salicylates < 5.0 L Acetaminophen < 1 Ethylene Glycol Volat Analys Perform On Ethyl Alcohol < 10 Methyl Alcohol Level Acetone, Qual COVID-19 (ESTEFANÍA) COVID-19 [employer] 08/31/22 08/31/22 08/31/22 12:34 12:34 12:39 MCV MCH MCHC RDW Plt Count MPV Immature Gran % (Auto) Neut % (Auto) Lymph % (Auto) [place] % (Auto) Eos % (Auto) Baso % (Auto) Lymph # (Auto) [place] # (Auto) Eos # (Auto) Baso # (Auto) Abs Immat Gran (auto) Absolute Neuts (auto) Absolute Nucleated RBC Nucleated RBC % (auto) Smear Tech's Comments VBG pH 7.53 H VBG pCO2 25 VBG pO2 63 VBG HCO3 21 L VBG O2 Saturation 92.0 VBG Base Excess 0.7 Anion Gap Estim Creat Clear Calc Estimated GFR Random Glucose Osmolality Lactic Acid 4.1 H* Lactic Acid F/U @ 2Hr Lactic Acid F/U @ 4Hr Calcium Magnesium Total Bilirubin Direct Bilirubin AST ALT Alkaline Phosphatase Ammonia Total Protein Albumin Urine Color Urine Appearance Urine pH Ur Specific [place] Urine Protein Urine Glucose (UA) Urine Ketones Urine Blood Urine Nitrite Ur Leukocyte Esterase Salicylates Acetaminophen Ethylene Glycol Volat Analys Perform On Ethyl Alcohol Methyl Alcohol Level Acetone, Qual Negative COVID-19 (ESTEFANÍA) COVID-19 [employer] 08/31/22 08/31/22 08/31/22 12:40 15:15 15:15 MCV MCH MCHC RDW Plt Count MPV Immature Gran % (Auto) Neut % (Auto) Lymph % (Auto) [place] % (Auto) Eos % (Auto) Baso % (Auto) Lymph # (Auto) [place] # (Auto) Eos # (Auto) Baso # (Auto) Abs Immat Gran (auto) Absolute Neuts (auto) Absolute Nucleated RBC Nucleated RBC % (auto) Smear Tech's Comments VBG pH VBG pCO2 VBG pO2 VBG HCO3 VBG O2 Saturation VBG Base Excess Anion Gap Estim Creat Clear Calc Estimated GFR Random Glucose Osmolality Lactic Acid Lactic Acid F/U @ 2Hr 3.7 H* Lactic Acid F/U @ 4Hr Calcium Magnesium Total Bilirubin Direct Bilirubin AST ALT Alkaline Phosphatase Ammonia Total Protein Albumin Urine Color Urine Appearance Urine pH Ur Specific [place] Urine Protein Urine Glucose (UA) Urine Ketones Urine Blood Urine Nitrite Ur Leukocyte Esterase Salicylates Acetaminophen Ethylene Glycol NONE DETECTED Volat Analys Perform On WHOLE BLOOD Ethyl Alcohol Methyl Alcohol Level NONE DETECTED Acetone, Qual COVID-19 (ESTEFANÍA) Negative COVID-19 Clin Com See Note 08/31/22 08/31/22 08/31/22 15:15 15:15 15:38 MCV MCH MCHC RDW Plt Count MPV Immature Gran % (Auto) Neut % (Auto) Lymph % (Auto) [place] % (Auto) Eos % (Auto) Baso % (Auto) Lymph # (Auto) [place] # (Auto) Eos # (Auto) Baso # (Auto) Abs Immat Gran (auto) Absolute Neuts (auto) Absolute Nucleated RBC Nucleated RBC % (auto) Smear Tech's Comments VBG pH VBG pCO2 VBG pO2 VBG HCO3 VBG O2 Saturation VBG Base Excess Anion Gap 19 Estim Creat Clear Calc 89.7 Estimated GFR > 60 Random Glucose 163 H Osmolality 331 H Lactic Acid Lactic Acid F/U @ 2Hr Lactic Acid F/U @ 4Hr Calcium 8.5 Magnesium Total Bilirubin 0.9 Direct Bilirubin 0.4 AST 47 H ALT 47 H Alkaline Phosphatase 78 Ammonia 34 Total Protein 6.7 Albumin 4.2 Urine Color Urine Appearance Urine pH Ur Specific [place] Urine Protein Urine Glucose (UA) Urine Ketones Urine Blood Urine Nitrite Ur Leukocyte Esterase Salicylates Acetaminophen Ethylene Glycol Volat Analys Perform On Ethyl Alcohol Methyl Alcohol Level Acetone, Qual COVID-19 (ESTEFANÍA) COVID-19 Clin [employer] 08/31/22 08/31/22 09/01/22 19:05 20:21 08:28 MCV MCH MCHC RDW Plt Count MPV Immature Gran % (Auto) Neut % (Auto) Lymph % (Auto) [place] % (Auto) Eos % (Auto) Baso % (Auto) Lymph # (Auto) [place] # (Auto) Eos # (Auto) Baso # (Auto) Abs Immat Gran (auto) Absolute Neuts (auto) Absolute Nucleated RBC Nucleated RBC % (auto) Smear Tech's Comments VBG pH VBG pCO2 VBG pO2 VBG HCO3 VBG O2 Saturation VBG Base Excess Anion Gap 15 Estim Creat Clear Calc 136.7 Estimated GFR > 60 Random Glucose 98 D Osmolality Lactic Acid Lactic Acid F/U @ 2Hr Lactic Acid F/U @ 4Hr 1.4 Calcium 8.0 L Magnesium 2.3 Total Bilirubin 1.0 Direct Bilirubin AST 50 H ALT 39 Alkaline Phosphatase 66 Ammonia Total Protein 5.6 L Albumin 3.6 Urine Color Yellow Urine Appearance Clear Urine pH 7.0 Ur Specific [place] <= 1.005 Urine Protein Negative Urine Glucose (UA) Negative Urine Ketones Negative Urine Blood Negative Urine Nitrite Negative Ur Leukocyte Esterase Negative Salicylates Acetaminophen Ethylene Glycol Volat Analys Perform On Ethyl Alcohol Methyl Alcohol Level Acetone, Qual COVID-19 (ESTEFANÍA) COVID-19 [employer] Com 09/01/22 08:28 MCV 84.0 MCH 29.7 MCHC 35.4 RDW 13.6 Plt Count 225 D MPV 8.7 L Immature Gran % (Auto) Neut % (Auto) Lymph % (Auto) [place] % (Auto) Eos % (Auto) Baso % (Auto) Lymph # (Auto) [place] # (Auto) Eos # (Auto) Baso # (Auto) Abs Immat Gran (auto) Absolute Neuts (auto) Absolute Nucleated RBC 0.000 Nucleated RBC % (auto) 0.0 Smear Tech's Comments VBG pH VBG pCO2 VBG pO2 VBG HCO3 VBG O2 Saturation VBG Base Excess Anion Gap Estim Creat Clear Calc Estimated GFR Random Glucose Osmolality Lactic Acid Lactic Acid F/U @ 2Hr Lactic Acid F/U @ 4Hr Calcium Magnesium Total Bilirubin Direct Bilirubin AST ALT Alkaline Phosphatase Ammonia Total Protein Albumin Urine Color Urine Appearance Urine pH Ur Specific [place] Urine Protein Urine Glucose (UA) Urine Ketones Urine Blood Urine Nitrite Ur Leukocyte Esterase Salicylates Acetaminophen Ethylene Glycol Volat Analys Perform On Ethyl Alcohol Methyl Alcohol Level Acetone, Qual COVID-19 (ESTEFANÍA) COVID-19 Clin Com Assessment and Plan (1) Alcoholic ketoacidosis: Status: Acute Plan d#2 36yo M with severe AUD presenting with acute EtOH withdrawal # EtOH withdrawal - continue phenobarbital taper, folate/thiamine/multivitamin, Addiction Medicine consultation re: MAT # transaminasemia - likely due to EtOH; HBV/HCV screen pending # lactic acidosis - suspect due to dehydration; resolved after aggressive IV isotonic fluid repletion # leukocytosis - suspect reactive, not infectious or septic.? resolved # VTE prophylaxis: SCDs In my clinical judgment, the patient requires continued inpatient hospitalization for the following reasons: severe EtOH withdrawal treatment Quality Stroke Does the patient have a stroke diagnosis?: No VTE Prior VTE?: No VTE Risk Level:: Medical - moderate - high VTE Device Contraindication: N/A - Device Ordered VTE Drug Contraindication: N/A - Med Ordered
[2022-09-01 11:48] VITALS: BP 132/70; PULSE 90; RESP 18; TEMP 37.2; O2SAT 94
[2022-09-01 16:00] VITALS: BP 138/92; PULSE 108; RESP 18; TEMP 37.1; O2SAT 98
--- NOTE | 2022-09-01 16:04 | MHC.CM.PN ---
EMR REVIEWED, PT ADMITTED W/ETOH WITHDRAWAL, CM MET W/PT WHO IS VISABLEY ANXIOUS AND MOTHER WHO IS AT BEDSIDE, PT REPORTS EVERY TIME HE HAS ISSUES W/GF HE ENDS UP NEEDING A PLACE TO STAY, PER PT'S MOM PT WILL BE ABLE TO STAY W/HER OR PT'S DAD AND THEY WILL FIGURE THAT OUT. PT ALSO REPORTS HE USED TO HAVE A THERAPIST AT COUNTS INCLUDE 234 BEDS AT THE [facility] HOWEVER THEY MOVED THE PRACTICE SO HE HAS NOT BEEN SEEING ANYONE AND MAY WANT INFO ON [facility] COUNSELING. PT DENIES BEING VACCINATED FOR COVID, VERIFIES PCP IS ANA SHAH AND DENIES HAVING A HCP AT THIS TIME. ANTIC PT WILL NEED TO MEET W/[employer] PRIOR TO D/C.
[2022-09-01] MEDS: PHENobarbitaL sodium 130 MG/ML VIAL 247 MG IM (16:44)
[2022-09-01] MEDS: 0.9 % Sodium Chloride Flush 3 ML SYRINGE IVFLUSH ×2 (16:49→23:02)
[2022-09-01 16:52] LABS: Amphetamine Screen Urine Not Detected (Not Detect); Barbiturates, Urine POSITIVE (Not Detect); Benzodiazepines Screen Urine Not Detected (Not Detect); Cannabinoid Screen Urine Not Detected (Not Detect); Cocaine Screen Urine Not Detected (Not Detect); Fentanyl, urine Not Detected (Not Detect); Opiate Screen Urine Not Detected (Not Detect); Phencyclidine Screen Urine Not Detected (Not Detect)
[2022-09-01 19:21] VITALS: BP 134/79; PULSE 97; RESP 18; TEMP 37.2; O2SAT 93
[2022-09-02] VITALS: BP 132/93; PULSE 86; RESP 18; TEMP 36.8; O2SAT 97
[2022-09-02 04:00] VITALS: BP 136/94; PULSE 99; RESP 18; TEMP 36.6; O2SAT 97
[2022-09-02 07:38] VITALS: BP 156/84; PULSE 102; RESP 18; TEMP 37.1; O2SAT 96
[2022-09-02 08:25] LABS: Hematocrit 42.2 % (42.0-52.0); Hemoglobin 14.6 g/dl (14.0-18.0); Mean Corpuscular HGB Conc 34.6 g/dl (31.0-36.0); Mean Corpuscular Hemoglobin 29.3 pg (27.0-33.0); Mean Corpuscular Volume 84.7 fL (80.0-98.0); Mean Platelet Volume 9.1 fL (9.4-12.4); Platelet Count 211 X10*3/uL (160-400); Red Blood Count 4.98 X10*6/uL (4.60-5.80); Red Cell Distribution Width 13.4 % (11.0-16.0); White Blood Count 6.8 X10*3/uL (4.8-10.8)
[2022-09-02 08:48] LABS: Alanine Aminotransferase 43 U/L (0-40); Alkaline Phosphatase 70 U/L (39-117); Anion Gap 14 (12-20); Aspartate Amino Transferase 54 U/L (5-37); Bilirubin Total 0.7 mg/dL (0.0-1.0); Blood Urea Nitrogen 10 mg/dL (9-16); Calcium 8.6 mg/dL (8.4-10.2); Carbon Dioxide 27 mmol/L (22-29); Chloride 103 mmol/L (96-108); Creatinine Clr Calc Pharmacy 114.1; Estimated Glomerular Filt Rate > 60; Glucose Random 101 mg/dL (60-115); Potassium 3.9 mmol/L (3.3-5.1); Sodium 140 mmol/L (135-145); Total Protein 6.5 g/dL (6.5-8.0)
[2022-09-02] MEDS: PHENobarbitaL 30 MG TABLET 60 MG PO (08:50)
[2022-09-02] MEDS: 0.9 % Sodium Chloride Flush 3 ML SYRINGE IVFLUSH (08:51)
--- NOTE | 2022-09-02 10:22 | PC.NURSE ---
Patient states he is feeling much better today. Feels his anxiety is under control. Patient instructed that he is still getting medications to help control withdrawals. Dr. Hurtado came to speak to patient. No plan to discharge today. Patient wanting to leave AMA. Addiction medicine up to speak to patient. To follow up outpatient. Dr. Hurtado notified. Telemonitor and IV removed. Patient signed AMA form and left AMA.
--- NOTE | 2022-09-02 11:17 | PM.DS ---
DS: Providers Provider Date of Service: 09/02/22 Date of admission: 08/31/22 14:49 Date of discharge: 09/02/22 Primary care physician: Kristen Martínez MD Consults: 08/31/22 14:46 Addiction Medicine Routine Consulting Provider: Addiction Covering Reason for consultation: aud DS: Diagnosis Discharge Diagnosis (1) Alcoholic ketoacidosis: Status: Acute (2) Alcohol withdrawal: Status: Acute DS: Summary Hospital Course Hospital Course: from my admission history and physical, 08/31/22: 36yo M with AUD and anxiety disorder [formerly on alprazolam] who drinks gallons of vodka daily.? Thinks last drink was about 2d ago.? Denies other substance abuse.? He's been vomiting at home and has been tremulous and anxious.? No LOC or seizure.? His friend call the paramedics and they gave him 2 mg of IV midazolam. In the ED, he was noted to be tachycardic and tachypneic with WBC count of 20.2.? Lactate is 4.1 and serum bicarbonate 19.? AST 45, ALT 47. He was given another 2 mg of IV midozolam along with IV thiamine and IV fluids.? He was then started on a phenobarbital tape[r] ADDENDUM Pt's father called ED provider re: pt found with isopropyl alcohol 32 oz, antiseptic mouthwash 50 oz, peppermint extract bottle, and 30 oz Awesome opening machine cleaner with about 1/4 bottle left.? Pt adamantly denies taking any other alcohol other than vodka and vanilla extract .? ED provider [facility].? Since pt unreliable historian, recommended giving 15 mg/kg fomepizole IV q12h until alcohol levels [methanol and ethylene glycol] return.? Will repeat lytes and check osmolality as well. He was admitted to the medical/surgical floor and treated with phenobarbital taper. Toxic alcohol levels were negative. Lactic acidosis and leukocytosis resolved after aggressive fluid resuscitation. Addiction Medicine consultation was placed to discuss medication-assisted treatment. However, the patient suddenly decided to sign out of the hospital against medical advice on 09/02/22 despite counseling on the risks of incompletely treated alcohol withdrawal. Time Spent with Patient Time attestation: Total time spent providing and/or coordinating discharge services: Discharge coordination time: Greater than 30 minutes Quality: Safe Use of Opioids Does Pt have an Active Cancer Diagnosis on the Problem List?: No Quality: Stroke Does the patient have a stroke diagnosis?: No Physical Exam Vital Signs: Vital Signs: Last Vital Signs Temp 98.7 F 09/02/22 07:38 Pulse 102 H 09/02/22 07:38 Resp 18 09/02/22 07:38 BP 156/84 H 09/02/22 07:38 Pulse Ox 96 09/02/22 07:38 O2 Del Method 09/02/22 07:38 BMI result Body Mass Index 27.6 Gen: in no acute distress HEENT: sclera anicteric, moist mucus membranes Neck: supple Lungs: clear to auscultation bilaterally Heart: regular rate and rhythm, no murmurs Abd: soft, non-tender, non-distended Ext: no edema Skin: warm/well-perfused Neuro: alert and oriented x3, no focal findings Psych: appropriate affect DS: Data Data Completed and Pending Completed studies during hospitalization [Text1]: Laboratory Results WBC 6.8 X10*3/uL (4.8-10.8) 09/02/22 07:55 RBC 4.98 X10*6/uL (4.60-5.80) 09/02/22 07:55 Hgb 14.6 g/dl (14.0-18.0) 09/02/22 07:55 Hct 42.2 % (42.0-52.0) 09/02/22 07:55 MCV 84.7 fL (80.0-98.0) 09/02/22 07:55 MCH 29.3 pg (27.0-33.0) 09/02/22 07:55 MCHC 34.6 g/dl (31.0-36.0) 09/02/22 07:55 RDW 13.4 % (11.0-16.0) 09/02/22 07:55 Plt Count 211 X10*3/uL (160-400) 09/02/22 07:55 MPV 9.1 fL (9.4-12.4) L 09/02/22 07:55 Immature Gran % (Auto) 0.4 % (0.0-0.4) 08/31/22 11:40 Neut % (Auto) 90.1 % (45-73) H 08/31/22 11:40 Lymph % (Auto) 5.9 % (20-40) L 08/31/22 11:40 [place] % (Auto) 3.2 % (2-11) 08/31/22 11:40 Eos % (Auto) 0.1 % (0-4) 08/31/22 11:40 Baso % (Auto) 0.3 % (0-2) 08/31/22 11:40 Lymph # (Auto) 1.2 X10*3/uL (1.2-4.9) 08/31/22 11:40 [place] # (Auto) 0.7 X10*3/uL (0.1-1.2) 08/31/22 11:40 Eos # (Auto) 0.0 X10*3/uL (0.0-0.4) 08/31/22 11:40 Baso # (Auto) 0.1 X10*3/uL (0.0-0.2) 08/31/22 11:40 Abs Immat Gran (auto) 0.08 X10*3/uL (0.00-0.03) H 08/31/22 11:40 Absolute Neuts (auto) 18.2 x10*3/uL (2.0-8.3) H 08/31/22 11:40 Absolute Nucleated RBC 0.000 X10*3/uL (0.0-0.012) 09/02/22 07:55 Nucleated RBC % (auto) 0.0 /100WBC (0.0-0.2) 09/02/22 07:55 Smear Tech's Comments VERIFIED 08/31/22 11:40 VBG pH 7.53 (7.32-7.43) H 08/31/22 12:39 VBG pCO2 25 mmHg 08/31/22 12:39 VBG pO2 63 mmHg 08/31/22 12:39 VBG HCO3 21 mmol/L (22-26) L 08/31/22 12:39 VBG O2 Saturation 92.0 % 08/31/22 12:39 VBG Base Excess 0.7 mmol/L 08/31/22 12:39 Sodium 140 mmol/L (135-145) 09/02/22 07:55 Potassium 3.9 mmol/L (3.3-5.1) 09/02/22 07:55 Chloride 103 mmol/L (96-108) 09/02/22 07:55 Carbon Dioxide 27 mmol/L (22-29) 09/02/22 07:55 Anion Gap 14 (12-20) 09/02/22 07:55 BUN 10 mg/dL (9-16) 09/02/22 07:55 Creatinine 1.03 mg/dL (0.5-1.4) 09/02/22 07:55 Estim Creat Clear Calc 114.1 09/02/22 07:55 Estimated GFR > 60 09/02/22 07:55 Random Glucose 101 mg/dL (60-115) 09/02/22 07:55 Osmolality 331 mosm/kg (281-305) H 08/31/22 15:15 Lactic Acid 4.1 mmol/L (0.5-2.0) H* 08/31/22 12:34 Lactic Acid F/U @ 2Hr 3.7 mmol/L (0.5-2.0) H* 08/31/22 15:15 Lactic Acid F/U @ 4Hr 1.4 mmol/L (0.5-2.0) 08/31/22 19:05 Calcium 8.6 mg/dL (8.4-10.2) D 09/02/22 07:55 Magnesium 2.3 mg/dL (1.6-2.6) 09/01/22 08:28 Total Bilirubin 0.7 mg/dL (0.0-1.0) 09/02/22 07:55 Direct Bilirubin 0.4 mg/dL (0.0-0.5) 08/31/22 15:15 AST 54 U/L (5-37) H 09/02/22 07:55 ALT 43 U/L (0-40) H 09/02/22 07:55 Alkaline Phosphatase 70 U/L (39-117) 09/02/22 07:55 Ammonia 34 umol/L (13-55) 08/31/22 15:38 Total Protein 6.5 g/dL (6.5-8.0) 09/02/22 07:55 Albumin 4.0 g/dL (3.5-5.0) 09/02/22 07:55 Urine Color Yellow 08/31/22 20: Urine Appearance Clear 08/31/22 20:21 Urine pH 7.0 (5.0-9.0) 08/31/22 20:21 Ur Specific [place] <= 1.005 (1.005-1.025) 08/31/22 20:21 Urine Protein Negative mg/dL (Neg-Trace) 08/31/22 20:21 Urine Glucose (UA) Negative mg/dL (Negative) 08/31/22 20: Urine Ketones Negative mg/dL (Negative) 08/31/22 20:21 Urine Blood Negative (Negative) 08/31/22 20: Urine Nitrite Negative (Negative) 08/31/22 20: Ur Leukocyte Esterase Negative (Negative) 08/31/22 20: Salicylates < 5.0 mg/dL (15-30) L 08/31/22 11:40 Urine Opiates Screen Not Detected (Not Detect) 09/01/22 15:55 Urine Fentanyl Screen Not Detected (Not Detect) 09/01/22 15:55 Acetaminophen < 1 mcg/mL (<30) 08/31/22 11:40 Ur Barbiturates Screen POSITIVE (Not Detect) H 09/01/22 15:55 Ur Phencyclidine Scrn Not Detected (Not Detect) 09/01/22 15:55 Ur Amphetamines Screen Not Detected (Not Detect) 09/01/22 15:55 U Benzodiazepines Scrn Not Detected (Not Detect) 09/01/22 15:55 Urine Cocaine Screen Not Detected (Not Detect) 09/01/22 15:55 U Marijuana (THC) Screen Not Detected (Not Detect) 09/01/22 15:55 Ethylene Glycol NONE DETECTED mg/L (NONE DETECTED) 08/31/22 15:15 Volat Analys Perform On WHOLE BLOOD 08/31/22 15:15 Ethyl Alcohol < 10 mg/dL 08/31/22 11:40 Methyl Alcohol Level NONE DETECTED mg/dL (NONE DETECTED) 08/31/22 15:15 Acetone, Qual Negative (Negative) 08/31/22 12:34 COVID-19 (ESTEFANÍA) Negative (Negative) 08/31/22 12:40 COVID-19 Clin Com See Note 08/31/22 12:40 Hep Bs Antigen Negative (Negative) 09/01/22 08:28 Hep Bs Antibody REACTIVE (Nonreactive) 09/01/22 08:28 Hep B Core Total Ab Nonreactive (Nonreactive) 09/01/22 08:28 Hepatitis C Ab (EIA) Nonreactive (Nonreactive) 09/01/22 08:28 Discharge Plan Discharge Patient Disposition: Left Against Medical Advice Discharge Diagnosis: alcohol withdrawal, lactic acidosis, left against medical advice Referrals: Kristen Martínez MD [Primary Care Provider] - 1 Week Discharge Medications: No Action No Known Home Meds Discharge Orders: Discharge Order (Routine); Ordered 09/02/22 Ordered By: Abram Hurtado Care Plan Goals: sobriety Health Concerns: alcohol withdrawal, lactic acidosis, left against medical advice Plan of Treatment: return to hospital [facility] for continued treatment Assessment: See Discharge Summary. Discharge Date/Time: 09/02/22 10:27
--- NOTE | 2022-09-02 15:52 | HO.ADDICT_ITS ---
History of Present Illness Date of Service: 09/02/2022 Chief Complaint: Alcohol Withdrawal Reason for Consult: AUD HPI Narrative: Patient is a 36 year old male medically admitted for alcohol withdrawal consult requested to evaluate and provide treatment recs At time of interview patient was ready to leave hospital prior to anticipated di scharge Somewhat guarded and providing minimal information Not answering regarding amount of alcohol he drinks When asked when he last had a drink he stated I don't know--but I drank enough to get drunk and that's not a problem, I don't think Denies any history of medications for alcohol use disorder, but open to discussing further outpatient Review of Systems Constitutional: Reports as per HPI Diagnostics Vital Signs (24Hr): Vital Signs - 24 hr 09/01/22 16:00 09/01/22 19:21 09/02/22 00:00 Temperature 98.7 F 98.9 F 98.2 F Pulse Rate 108 H 97 86 Respiratory Rate 18 18 18 Blood Pressure 138/92 H 134/79 132/93 H Pulse Oximetry 98 93 97 Oxygen Delivery Method Room Air Room Air Room Air 09/02/22 04:00 09/02/22 07:38 Temperature 97.9 F 98.7 F Pulse Rate 99 102 H Respiratory Rate 18 18 Blood Pressure 136/94 H 156/84 H Pulse Oximetry 97 96 Oxygen Delivery Method Room Air Room Air BMI result Body Mass Index 27.6 Labs Results: 09/02/22 07:55 09/02/22 07:55 Labs: Laboratory Results - last 48 hr 08/31/22 08/31/22 08/31/22 15:15 15:15 15:15 WBC RBC Hgb Hct MCV MCH MCHC RDW Plt Count MPV Absolute Nucleated RBC Nucleated RBC % (auto) Sodium Potassium Chloride Carbon Dioxide 21 L Anion Gap BUN Creatinine Estim Creat Clear Calc Estimated GFR Random Glucose Osmolality Lactic Acid F/U @ 2Hr 3.7 H* Lactic Acid F/U @ 4Hr Calcium Magnesium Total Bilirubin AST ALT Alkaline Phosphatase Ammonia Total Protein Albumin Urine Color Urine Appearance Urine pH Ur Specific [place] Urine Protein Urine Glucose (UA) Urine Ketones Urine Blood Urine Nitrite Ur Leukocyte Esterase Urine Opiates Screen Urine Fentanyl Screen Ur Barbiturates Screen Ur Phencyclidine Scrn Ur Amphetamines Screen U Benzodiazepines Scrn Urine Cocaine Screen U Marijuana (THC) Screen Ethylene Glycol NONE DETECTED Volat Analys Perform On WHOLE BLOOD Methyl Alcohol Level NONE DETECTED Hep Bs Antigen Hep Bs Antibody Hep B Core Total Ab Hepatitis C Ab (EIA) 08/31/22 08/31/22 08/31/22 15:15 15:38 19:05 WBC RBC Hgb Hct MCV MCH MCHC RDW Plt Count MPV Absolute Nucleated RBC Nucleated RBC % (auto) Sodium Potassium Chloride Carbon Dioxide Anion Gap BUN Creatinine Estim Creat Clear Calc Estimated GFR Random Glucose Osmolality 331 H Lactic Acid F/U @ 2Hr Lactic Acid F/U @ 4Hr 1.4 Calcium Magnesium Total Bilirubin AST ALT Alkaline Phosphatase Ammonia 34 Total Protein Albumin Urine Color Urine Appearance Urine pH Ur Specific [place] Urine Protein Urine Glucose (UA) Urine Ketones Urine Blood Urine Nitrite Ur Leukocyte Esterase Urine Opiates Screen Urine Fentanyl Screen Ur Barbiturates Screen Ur Phencyclidine Scrn Ur Amphetamines Screen U Benzodiazepines Scrn Urine Cocaine Screen U Marijuana (THC) Screen Ethylene Glycol Volat Analys Perform On Methyl Alcohol Level Hep Bs Antigen Hep Bs Antibody Hep B Core Total Ab Hepatitis C Ab (EIA) 08/31/22 09/01/22 09/01/22 20:21 08:28 08:28 WBC RBC Hgb Hct MCV MCH MCHC RDW Plt Count MPV Absolute Nucleated RBC Nucleated RBC % (auto) Sodium Potassium Chloride Carbon Dioxide Anion Gap BUN Creatinine Estim Creat Clear Calc Estimated GFR Random Glucose Osmolality Lactic Acid F/U @ 2Hr Lactic Acid F/U @ 4Hr Calcium Magnesium Total Bilirubin AST ALT Alkaline Phosphatase Ammonia Total Protein Albumin Urine Color Yellow Urine Appearance Clear Urine pH 7.0 Ur Specific [place] <= 1.005 Urine Protein Negative Urine Glucose (UA) Negative Urine Ketones Negative Urine Blood Negative Urine Nitrite Negative Ur Leukocyte Esterase Negative Urine Opiates Screen Urine Fentanyl Screen Ur Barbiturates Screen Ur Phencyclidine Scrn Ur Amphetamines Screen U Benzodiazepines Scrn Urine Cocaine Screen U Marijuana (THC) Screen Ethylene Glycol Volat Analys Perform On Methyl Alcohol Level Hep Bs Antigen Negative Hep Bs Antibody REACTIVE Hep B Core Total Ab Nonreactive Hepatitis C Ab (EIA) Nonreactive 09/01/22 09/01/22 09/01/22 08:28 08:28 15:55 WBC 8.6 RBC 4.51 L Hgb 13.4 L Hct 37.9 L MCV 84.0 MCH 29.7 MCHC 35.4 RDW 13.6 Plt Count 225 D MPV 8.7 L Absolute Nucleated RBC 0.000 Nucleated RBC % (auto) 0.0 Sodium 139 Potassium 3.7 Chloride 105 Carbon Dioxide 23 Anion Gap 15 BUN 8 L Creatinine 0.86 Estim Creat Clear Calc 136.7 Estimated GFR > 60 Random Glucose 98 D Osmolality Lactic Acid F/U @ 2Hr Lactic Acid F/U @ 4Hr Calcium 8.0 L Magnesium 2.3 Total Bilirubin 1.0 AST 50 H ALT 39 Alkaline Phosphatase 66 Ammonia Total Protein 5.6 L Albumin 3.6 Urine Color Urine Appearance Urine pH Ur Specific [place] Urine Protein Urine Glucose (UA) Urine Ketones Urine Blood Urine Nitrite Ur Leukocyte Esterase Urine Opiates Screen Not Detected Urine Fentanyl Screen Not Detected Ur Barbiturates Screen POSITIVE H Ur Phencyclidine Scrn Not Detected Ur Amphetamines Screen Not Detected U Benzodiazepines Scrn Not Detected Urine Cocaine Screen Not Detected U Marijuana (THC) Screen Not Detected Ethylene Glycol Volat Analys Perform On Methyl Alcohol Level Hep Bs Antigen Hep Bs Antibody Hep B Core Total Ab Hepatitis C Ab (EIA) 09/02/22 09/02/22 07:55 07:55 WBC 6.8 RBC 4.98 Hgb 14.6 Hct 42.2 MCV 84.7 MCH 29.3 MCHC 34.6 RDW 13.4 Plt Count 211 MPV 9.1 L Absolute Nucleated RBC 0.000 Nucleated RBC % (auto) 0.0 Sodium 140 Potassium 3.9 Chloride 103 Carbon Dioxide 27 Anion Gap 14 BUN 10 Creatinine 1.03 Estim Creat Clear Calc 114.1 Estimated GFR > 60 Random Glucose 101 Osmolality Lactic Acid F/U @ 2Hr Lactic Acid F/U @ 4Hr Calcium 8.6 D Magnesium Total Bilirubin 0.7 AST 54 H ALT 43 H Alkaline Phosphatase 70 Ammonia Total Protein 6.5 Albumin 4.0 Urine Color Urine Appearance Urine pH Ur Specific [place] Urine Protein Urine Glucose (UA) Urine Ketones Urine Blood Urine Nitrite Ur Leukocyte Esterase Urine Opiates Screen Urine Fentanyl Screen Ur Barbiturates Screen Ur Phencyclidine Scrn Ur Amphetamines Screen U Benzodiazepines Scrn Urine Cocaine Screen U Marijuana (THC) Screen Ethylene Glycol Volat Analys Perform On Methyl Alcohol Level Hep Bs Antigen Hep Bs Antibody Hep B Core Total Ab Hepatitis C Ab (EIA) Mental Status Exam Mental Status Exam Patient Appearance: Appropriate Level of Consciousness: Awake, Appropriate and Alert Patient Behavior: Guarded Mood Description: Calm Affect Description: Calm Speech Pattern: Clear Thought Process: Intact Thought Content: positive for Intact and positive for [place] Judgement: Poor Medications Allergies Allergies Allergy/AdvReac Type Severity Reaction Status Date / Time penicillin V Allergy Unknown anaphylaxis Verified 07/18/22 08:26 Assessment & Plan Assessment & Plan (1) Alcohol use disorder, severe, dependence: Status: Acute Code(s): F10.20 - Alcohol dependence, uncomplicated Assessment and Plan: * agreeable to discussing medications at outpatient appt with CCC * scheduled for 09/03 at 3pm * unwilling to engage any further I spent ___20___ minutes with the patient and/or on the patient floor today, greater than?50% of which was spent counseling/coordinating care. [facility] Past Medical History Medical History Alcohol dependence in early full remission Anxiety COVID-19 vaccination declined Left ankle pain Family History Family History Father Anxiety Mental health disorder Mother Depression Mental health disorder Brother Substance use disorder Mental health disorder Sister Mental health disorder Son No problems noted. Son No problems noted. Paternal Grandfather Substance use disorder Maternal Uncle Substance use disorder Surgical History Surgical History History of removal of cyst Social History Social History Household Members: Family Housing: House Do you presently have visiting nurse or other home services: No Alcohol intake: current Alcohol intake frequency: a few times a month Alcohol type: hard liquor Patient Tobacco Use Status: Former Tobacco user Tobacco use type: Cigarette Years Smoked: 6 months e-Cigarette/Vaping Use: Never Used Second Hand Smoke Exposure: No Substance Use Type: Marijuana and Unknown Advance Directives: No service: No Current occupational status: employed
== END 2022-09-02 10:27 | disposition left against medical advice (07) | DRG 422 ==
LOC: HO.ED 12:21 → HO.EDOVER 14:56 → HO.S3 09-01 01:34
PROVIDERS: Nurse Practitioner Family; Admitting Provider Family Medicine; Emergency Provider Emergency Medicine; PCP Internal Medicine; Visit Provider Family Medicine
DX: E87.29 Other acidosis (principal); E86.0 Dehydration; D72.829 Elevated white blood cell count, unspecified; F10.239 Alcohol dependence with withdrawal, unspecified; F41.9 Anxiety disorder, unspecified; Z20.822 Contact with and (suspected) exposure to COVID-19; Z87.891 Personal history of nicotine dependence; Z88.0 Allergy status to penicillin
CPT/HCPCS: 36415; 80048; 80053; 80076; 80143; 80179; 80307; 80320; 81003; 82009; 82077; 82140; 82693; 82803; 83605; 83735; 83930; 85025; 85027; 86704; 86706; 86803; 87040; 87340; 87635; 93005; 99285; J1451; J2250; J2405; J2560; J3411

== ENCOUNTER 2022-09-03 11:28 | Emergency (ER) | payer OTHER, SELFPAY ==
--- NOTE | 2022-09-03 11:28 | ED_ITS ---
HPI - Alcohol General Chief Complaint: ETOH/Substance Use Stated Complaint: ETOH USE,OUTSIDE W/NO SHOES X'S 1/2 HOUR PER EMS Source: patient Mode of arrival: EMS Limitations: no limitations History of Present Illness HPI narrative: 36 yo M with PMH of alcohol withdrawl and alcohol dependence presents to the ED via EMS for etoh use and being outside with no shoes on for > 30 minutes per EMS. On arrival pt states that he is unsure why he is in the ED and reports that he would like to leave AMA. Pt reports he is 'fine' and denies any confusion, headache, recent illness, fever or chills. MD complaint: alcohol intoxication Last drink: Unknown Chronic alcohol use: Yes Previous visits for alcohol intoxication: Yes Associated symptoms: denies other symptoms Treatments prior to arrival: none Related Data Home Medications Medication Instructions Recorded Confirmed No Known Home Meds 08/31/22 08/31/22 Allergies Allergy/AdvReac Type Severity Reaction Status Date / Time penicillin V Allergy Unknown anaphylaxis Verified 07/18/22 08:26 Review of Systems Review of Systems: Yes all other systems are reviewed and are negative Constitutional: Constitutional: Reports no additional constitutional complaints, Denies fever(s) and Denies headache(s) Eyes: Eyes: Reports no additional eye complaints ENT: Reports system reviewed and no additional complaints, except as documented, Denies dizziness and Denies headache(s) Cardiovascular: Cardiovascular: Reports no additional cardiovascular complaints, Denies chest pain, Denies Loss of Consciousness and Denies dyspnea Respiratory: Respiratory: Reports no additional respiratory complaints and Denies dyspnea Gastrointestinal: Gastrointestinal: Reports no additional gastrointestinal complaints Musculoskeletal: Musculoskeletal: Denies abnormal gait Integumentary/Breasts: Skin/Breast: Reports system reviewed and no additional complaints, except as docu Neurologic: Reports system reviewed and no additional complaints, except as documented, Denies abnormal gait, Denies dizziness, Denies headache(s) and Louie es lack of coordination [facility] Past Medical History Source: old records reviewed Medical History Alcohol dependence in early full remission Anxiety COVID-19 vaccination declined Left ankle pain Surgical History History of removal of cyst Family History Family History Father Anxiety Mental health disorder Mother Depression Mental health disorder Brother Substance use disorder Mental health disorder Sister Mental health disorder Son No problems noted. Son No problems noted. Paternal Grandfather Substance use disorder Maternal Uncle Substance use disorder Social History Social History Household Members: Family Housing: House Do you presently have visiting nurse or other home services: No Alcohol intake: current Alcohol intake frequency: a few times a month Alcohol type: hard liquor Patient Tobacco Use Status: Former Tobacco user Tobacco use type: Cigarette Years Smoked: 6 months e-Cigarette/Vaping Use: Never Used Second Hand Smoke Exposure: No Substance Use Type: Marijuana and Unknown Advance Directives: No service: No Current occupational status: employed Physical Exam ED Vital Signs: Vital Signs - 24 hr 09/03/22 11:41 Temperature 97.6 F Pulse Rate 99 Respiratory Rate 16 Blood Pressure 142/107 H Pulse Oximetry 99 Oxygen Delivery Method Room Air BMI result Body Mass Index 30.2 Const General: cooperative and no acute distress Nutritional Appearance: well nourished Orientation/consciousness: patient oriented x3 Limitations: no limitations HENMT Head: Yes normal to inspection and Yes atraumatic Ears: external ears normal General nose exam: Normal external nose present Face and sinus: Yes normal facial exam and Yes face symmetric Eyes General: appearance normal, both eyes and all related structures Alignment and Position: alignment normal Periorbital: periorbital findings normal Eyelids: Yes eyelids normal Conjunctivae: conjunctivae normal Sclerae: sclerae normal Pupils: Equal, round and reactive pupils present EOM: EOMs intact bilaterally Neck Neck: Yes normal visual inspection and Yes full ROM Chest Chest palpation & inspection: normal inspection of the chest Resp Effort & Inspection: normal respiratory effort and able to speak in complete sentences Cardio Rate: regular rate Rhythm: regular rhythm Skin General skin exam: no rashes or lesions noted Neuro General: patient oriented x3, gait normal and moves all extremities Cranial nerves: Yes Equal, round and reactive pupils present Cognition (Neuro): normal cognition Gait exam (Neuro): Normal gait present Extrem General: Yes normal to inspection, Yes full ROM and Yes capillary refill normal Psych Appearance: grossly normal Mental Status: mental status grossly normal Speech and movement: Normal speech and movement present Affect: normal affect Attitude: cooperative Thought process: Normal thought process present Thought content: Normal thought content present MDM - Alcohol MDM Narrative Medical decision making narrative: 36 yo M with PMH of alcohol withdrawl and alcohol dependence presents to the ED via EMS for etoh use denies need for care and would like to leave AMA. Pt reports he is 'fine' and would like to be allowed to go home with his friend who is at bedside. Pt with steady gait, A & O x 4, does not appear to be intoxicated, and sound decision making capability and decision process. Pt cleared for discharge. Discharge Plan Discharge Clinical Impression: Alcohol use Patient Disposition: Home, Self-Care Prescriptions: No Action No Known Home Meds Print Language: Ivorian
[2022-09-03 11:41] VITALS: BP 140/100; BP 142/107; PULSE 99; RESP 16; TEMP 36.4; O2SAT 99; BMI 30.2
--- NOTE | 2022-09-03 11:45 | PC.NURSE ---
Provider in to evaluate pt
== END 2022-09-03 12:03 | disposition home or self-care (01) ==
PROVIDERS: Emergency Provider Emergency Medicine Emergency Medical Services
DX: F10.20 Alcohol dependence, uncomplicated (principal); Y90.9 Presence of alcohol in blood, level not specified
CPT/HCPCS: 99282

== ENCOUNTER 2022-09-21 14:44 | Emergency (ER) | payer OTHER, SELFPAY ==
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
[2022-09-21 15:15] VITALS: BP 129/80; BP 137/84; PULSE 100; PULSE 110; RESP 20; O2SAT 94; O2SAT 98; BMI 26.9
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
[2022-09-21] MEDS: HaloperidoL 5 MG TABLET PO (17:06)
[2022-09-21] MEDS: LORazepam 1 MG TABLET 2 MG PO (17:06)
--- NOTE | 2022-09-21 17:08 | PC.NURSE ---
medicated per provider order.
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
== END 2022-09-21 18:17 | disposition home or self-care (01) ==
PROVIDERS: Emergency Provider Emergency Medicine
DX: S29.9XXA Unspecified injury of thorax, initial encounter (principal); S39.92XA Unspecified injury of lower back, initial encounter; F10.129 Alcohol abuse with intoxication, unspecified; M54.2 Cervicalgia; R51.9 Headache, unspecified; R10.2 Pelvic and perineal pain; V47.5XXA Car driver injured in collision with fixed or stationary object in traffic accident, initial encounter; Y93.9 Activity, unspecified; Y92.410 Unspecified street and highway as the place of occurrence of the external cause; Y99.9 Unspecified external cause status; Y90.8 Blood alcohol level of 240 mg/100 ml or more; Z79.899 Other long term (current) drug therapy
CPT/HCPCS: 70450; 71250; 72125; 74176; 99283

== ENCOUNTER 2022-10-28 14:46 | Inpatient (IN) | payer OTHER, SELFPAY ==
[2022-10-28 14:56] LABS: Glucose, Whole Blood 144 mg/dL (60-115)
[2022-10-28 15:01] VITALS: PULSE 130; RESP 18; TEMP 37.3; O2SAT 96; BMI 25.7
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
--- NOTE | 2022-10-28 15:36 | ED_ITS ---
HPI - General Adult General Chief complaint: ETOH/Substance Use <ANTONIO Mohan - Last Filed: 10/29/22 08:31> Stated complaint: ETOH <ANTONIO Mohan - Last Filed: 10/29/22 08:31> Time Seen by Provider: 10/28/22 15:29 <ANTONIO Mohan Last Filed: 10/29/22 08:31> Source: patient and family (mother) <ANTONIO Mohan Last Filed: 10/29/22 08:31> Mode of arrival: ambulatory <ANTONIO Mohan Last Filed: 10/29/22 08:31> Limitations: no limitations <ANTONIO Mohan Last Filed: 10/29/22 08:31> History of Present Illness HPI narrative: Patient is a 36 year old assigned male at with a history of alcohol abuse presenting to the emergency department today with alcohol intoxication and requesting detox. Patient's mother states that the patient has been on an alcohol and benzo binder since July and she would like to get the patient placed into detox. Patient states that he would also like to go to detox. Patient's mother states that the patient's father is at the court house attempting to obtain a 35 order. Patient denies any dizziness, lightheadedness, abdominal pain, nausea, vomiting, fever, chills, blurry vision, double vision, loss of vision, chest pain, difficulty breathing, shortness of breath, back pain, night sweats, pain with urination, increased urinary frequency, increased urinary urgency, blood in his urine or stool, syncope or a near syncopal episode, recent trauma or falls, bowel incontinence, bladder incontinence, bowel retention, bladder retention, or any other complaints at this time. <ANTONIO Mohan - Last Filed: 10/29/22 08:31> Severity: mild <ANTONIO Mohan Last Filed: 10/29/22 08:31> Severity scale (1-10): 4 <ANTONIO Mohan Last Filed: 10/29/22 08:31> Relieving factors: none <ANTONIO Mohan Last Filed: 10/29/22 08:31> Exacerbating factors: none <ANTONIO Mohan Last Filed: 10/29/22 08:31> Associated symptoms: denies other symptoms <ANTONIO Mohan Last Filed: 10/29/22 08:31> Treatments prior to arrival: none <ANTONIO Mohan Last Filed: 10/29/22 08:31> Related Data Home medications: Home Medications Medication Instructions Recorded Confirmed quetiapine 50 mg tablet 50 mg PO BEDTIME 09/19/22 10/28/22 pantoprazole 40 mg tablet,delayed 1 tab PO DAILY 10/28/22 10/28/22 release Previous Rx's Medication Instructions Recorded buspirone 5 mg tablet 5 mg PO TID #90 tabs 09/19/22 <ANTONIO Mohan Last Filed: 10/29/22 08:31> Allergies/adverse reactions: Allergies Allergy/AdvReac Type Severity Reaction Status Date / Time penicillin V Allergy Unknown anaphylaxis Verified 09/19/22 09:53 <ANTONIO Mohan Last Filed: 10/29/22 08:31> Review of Systems Constitutional: Constitutional: Reports no additional constitutional complaints, Denies chills, Denies fever(s) and Denies night sweats <ANTONIO Mohan Last Filed: 10/29/22 08:31> Eyes: Eyes: Reports no additional eye complaints, Denies blurry vision, Denies change in vision, Denies diplopia, Denies eye discharge, Denies loss of vision and Denies eye pain <ANTONIO Mohan Last Filed: 10/29/22 08:31> ENT: Denies dizziness <ANTONIO Mohan Last Filed: 10/29/22 08:31> Cardiovascular: Cardiovascular: Reports no additional cardiovascular complaints, Denies chest pain, Denies lightheadedness, Denies Loss of Co nsciousness and Denies dyspnea <ANTONIO Mohan Last Filed: 10/29/22 08:31> Respiratory: Respiratory: Reports no additional respiratory complaints and Denies dyspnea <ANTONIO Mohan Last Filed: 10/29/22 08:31> Gastrointestinal: Gastrointestinal: Reports no additional gastrointestinal complaints, Denies abdominal pain, Denies melena, Denies hematochezia, Denies change in bowel habits and Denies change in stool character <ANTONIO Mohan Last Filed: 10/29/22 08:31> Genitourinary: Genitourinary: Reports no additional male genitourinary complaints, Denies hematuria, Denies oliguria, Denies difficulty urinating, Denies dysuria, Denies urinary frequency, Denies urinary hesitancy, Denies urinary incontinence and Denies urinary urgency <ANTONIO Mohan - Last Filed: 10/29/22 08:31> Musculoskeletal: Musculoskeletal: Reports no additional musculoskeletal complaints, Denies numbness and Denies tingling <ANTONIO Mohan - Last Filed: 10/29/22 08:31> Neurologic: Denies dizziness, Denies loss of vision, Denies numbness and Denies tingling <ANTONIO Mohan - Last Filed: 10/29/22 08:31> Psychiatric: Psychiatric: Reports no additional psychiatric complaints <ANTONIO Mohan - Last Filed: 10/29/22 08:31> Endocrine: Endocrine: Reports no additional endocrine complaints <ANTONIO Mohan - Last Filed: 10/29/22 08:31> Hematologic/Lymphatic: Hematologic/Lymphatic: Reports no additional hematologic/lymphatic complaints <ANTONIO Mohan - Last Filed: 10/29/22 08:31> Allergic/Immunologic: Allergic/Immunologic: Reports no additional allergic/im munologic complaints <ANTONIO Mohan - Last Filed: 10/29/22 08:31> [facility] Past Medical History Attestation statement: The following information was validated with the patient. <ANTONIO Mohan - Last Filed: 10/29/22 08:31> Source: old records reviewed, obtained from family (patient's mother) and nursing notes reviewed <ANTONIO Mohan - Last Filed: 10/29/22 08:31> Medical History: Medical History Alcohol dependence in early full remission Anxiety Anxiety and depression COVID-19 vaccination declined Left ankle pain Refused influenza vaccine <ANTONIO Mohan - Last Filed: 10/29/22 08:31> Surgical History: Surgical History History of removal of cyst <ANTONIO Mohan - Last Filed: 10/29/22 08:31> Family History Family History: Family History Father Anxiety Mental health disorder Mother Depression Mental health disorder Brother Substance use disorder Mental health disorder Sister Mental health disorder Son No problems noted. Son No problems noted. Paternal Grandfather Substance use disorder Maternal Uncle Substance use disorder <ANTONIO Mohan - Last Filed: 10/29/22 08:31> Social History Social History: Social History Household Members: Family Housing: House Do you presently have visiting nurse or other home services: No Alcohol intake: current Alcohol intake frequency: a few times a month Alcohol type: hard liquor Patient Tobacco Use Status: Former Tobacco user Tobacco use type: Cigarette Years Smoked: 6 months e-Cigarette/Vaping Use: Never Used Second Hand Smoke Exposure: No Substance Use Type: Marijuana and Unknown Advance Directives: No Advance Directives Information Provided: No service: No Current occupational status: employed Cognitive needs: No Hearing needs: No Vision needs: No <NATONIO Mohan - Last Filed: 10/29/22 08:31> Physical Exam ED Vital Signs: Vital Signs - 24 hr 10/28/22 15:01 10/28/22 23:20 Temperature 99.2 F 99.4 F Pulse Rate 130 H 107 H Respiratory Rate 18 18 Blood Pressure 131/83 Pulse Oximetry 96 95 Oxygen Delivery Method Room Air Room Air BMI result Body Mass Index 25.7 <ANTONIO Mohan - Last Filed: 10/29/22 08:31> Vital Signs - 24 hr 10/28/22 15:01 10/28/22 23:20 Temperature 99.2 F 99.4 F Pulse Rate 130 H 107 H Respiratory Rate 18 18 Blood Pressure 131/83 Pulse Oximetry 96 95 Oxygen Delivery Method Room Air Room Air BMI result Body Mass Index 25.7 <Mariah Jenkins NP - Last Filed: 10/28/22 23:48> Const General: cooperative, no acute distress, alert and awake <ANTONIO Mohan - Last Filed: 10/29/22 08:31> Nutritional Appearance: well nourished <ANTONIO Mohan - Last Filed: 10/29/22 08:31> Orientation/consciousness: patient oriented x3 <Traci TamayoANTONIO schwarz - Last Filed: 10/29/22 08:31> Limitations: no limitations <Tracinatacha TamayoANTONIO schwarz - Last Filed: 10/29/22 08:31> HENMT Head: Yes normal to inspection and Yes atraumatic <Traci TamayoANTONIO schwarz - Last Filed: 10/29/22 08:31> Ears: hearing grossly normal bilaterally and external ears normal <ANTONIO Mohan - Last Filed: 10/29/22 08:31> General nose exam: Normal external nose present, no nasal discharge noted and no epistaxis <Traci Perdue PA - Last Filed: 10/29/22 08:31> Face and sinus: Yes normal facial exam, No abrasion and No laceration <ANTONIO Mhoan - Last Filed: 10/29/22 08:31> Mouth: Normal oral and palatal mucosa present, no drooling and no muffled voice <ANTONIO Mohan - Last Filed: 10/29/22 08:31> Eyes General: appearance normal, both eyes and all related structures <Traci ANTONIO Perdue - Last Filed: 10/29/22 08:31> Periorbital: periorbital findings normal <ANTONIO Mohan - Last Filed: 10/29/22 08:31> Eyelids: Yes eyelids normal <Tracinatacha Tamayokarishma PA - Last Filed: 10/29/22 08:31> Conjunctivae: conjunctivae normal <ANTONIO Mohan - Last Filed: 10/29/22 08:31> Pupils: Equal, round and reactive pupils present <ANTONIO Mohan - Last Filed: 10/29/22 08:31> EOM: EOMs intact bilaterally <Traci Perdue PA - Last Filed: 10/29/22 08:31> Neck Neck: Yes normal visual inspection, Yes full ROM and Yes no lymphadenopathy <ANTONIO Mohan - Last Filed: 10/29/22 08:31> Chest Chest palpation & inspection: normal inspection of the chest <ANTONIO Mohan - Last Filed: 10/29/22 08:31> Resp Effort & Inspection: normal respiratory effort and able to speak in complete sentences <ANTONIO Mohan - Last Filed: 10/29/22 08:31> Auscultation: clear to auscultation bilaterally <Traci Perdue PA - Last Filed: 10/29/22 08:31> Cardio Rate: regular rate <Traci Perdue PA - Last Filed: 10/29/22 08:31> Rhythm: regular rhythm <Traci Perdue PA - Last Filed: 10/29/22 08:31> GI Inspection: Yes normal to inspection <Traci Perdue PA - Last Filed: 10/29/22 08:31> Palpation (GI): Soft to palpation, not firm, nontender and no guarding <Traci Perdue PA - Last Filed: 10/29/22 08:31> Neuro General: patient oriented x3 and moves all extremities <Traci Perdue PA - Last Filed: 10/29/22 08:31> Cranial nerves: Yes Equal, round and reactive pupils present <Traci Perdue PA - Last Filed: 10/29/22 08:31> Cognition (Neuro): normal cognition <Traci Perdue PA - Last Filed: 10/29/22 08:31> Motor exam (neuro): 5/5 motor strength present throughout <Traci Perdue PA - Last Filed: 10/29/22 08:31> Sensory Exam: Normal double simultaneous stimulation for sensation <Traci Perdue PA - Last Filed: 10/29/22 08:31> Coordination: [id number] test normal <Traci Perdue PA - Last Filed: 10/29/22 08:31> Extrem General: Yes normal to inspection, Yes full ROM and Yes capillary refill normal <Traci Perdue PA - Last Filed: 10/29/22 08:31> Psych Appearance: grossly normal <Traci Perdue PA - Last Filed: 10/29/22 08:31> Mental Status: mental status grossly normal <Traci Perdue PA - Last Filed: 10/29/22 08:31> Affect: normal affect <Traci Perdue PA - Last Filed: 10/29/22 08:31> Attitude: cooperative <Traci Tamayokarishma PA - Last Filed: 10/29/22 08:31> Thought process: Normal thought process present <ANTONIO Mohan - Last Filed: 10/29/22 08:31> Thought content: Normal thought content present <ANTONIO Mohan - Last Filed: 10/29/22 08:31> Insight: Good insight present (Psych) <ANTONIO Mohan - Last Filed: 10/29/22 08:31> Course Course Course Narrative: 23:44 patient is actively withdrawing, required 2nd dose of Ativan, phenobarbital started at this time. Patient is interested detox and agrees to admission. Discussion with Dr. Ramos, plan is to admit for alcohol withdrawal syndrome. <Mariah Jenkins NP - Last Filed: 10/28/22 23:48> Medications Administered Generic Name Dose Route Start Last Admin Trade Name Freq PRN Reason Stop Dose Admin Docusate Sodium 100 mg 10/29/22 09:00 10/29/22 08:27 Docusate Sodium 100 Mg Capsule PO Not Given BID JANEL Enoxaparin Sodium 40 mg 10/28/22 23:45 10/29/22 00:54 Enoxaparin Sodium 40 Mg/0.4 Ml Syringe SUBCUT Not Given BEDTIME JANEL Folic Acid 1 mg 10/29/22 09:00 10/29/22 08:27 Folic Acid 1 Mg Tablet PO Not Given DAILY JANEL Sodium Chloride 3 ml 10/29/22 00:00 10/29/22 08:27 0.9 % Sodium Chloride Flush 3 Ml Syringe IVFLUSH 3 ml QSHIFT JANEL Administration Thiamine HCl 100 mg 10/29/22 09:00 10/29/22 08:27 Thiamine Hcl 100 Mg Tablet PO Not Given DAILY JANEL Discontinued Medications Generic Name Dose Route Start Last Admin Trade Name Freq PRN Reason Stop Dose Admin Haloperidol Lactate 5 mg 10/28/22 15:36 10/28/22 15:51 Haloperidol Lactate 5 Mg/Ml Vial IM 10/28/22 15:37 5 mg ONCE ONE Administration Sodium Chloride 1,000 mls @ 999 mls/hr 10/28/22 22:45 10/29/22 01:57 Ns IVCONT 10/28/22 23:45 Infused .Q1H1M JANEL Infusion Thiamine HCl 500 mg/ Sodium 105 mls @ 210 mls/hr 10/28/22 22:32 10/29/22 01:57 Chloride IV 10/28/22 23:01 Infused ONCE ONE Infusion Folic Acid 1 mg/ Sodium 50.2 mls @ 100.4 mls/hr 10/28/22 22:32 10/29/22 01:56 Chloride IV 10/28/22 23:01 Infused ONCE ONE Infusion Lorazepam 2 mg 10/28/22 15:36 10/28/22 15:51 Lorazepam 2 Mg/Ml Vial IM 10/28/22 15:37 2 mg ONCE ONE Administration Lorazepam 2 mg 10/28/22 22:31 10/28/22 22:49 Lorazepam 1 Mg Tablet PO 10/28/22 22:32 2 mg ONCE ONE Administration Phenobarbital Sodium 325 mg 10/29/22 00:30 10/29/22 00:54 Phenobarbital Sodium 130 Mg/Ml Im Once IM 10/29/22 00:31 325 mg ONCE ONE Administration Phenobarbital Sodium 247 mg 10/29/22 03:30 10/29/22 06:36 Phenobarbital Sodium 130 Mg/Ml Vial Im Q3hx2 IM 10/29/22 06:31 247 mg Q3H JANEL Administration <ANTONIO Mohan - Last Filed: 10/29/22 08:31> Medications Administered Generic Name Dose Route Start Last Admin Trade Name Freq PRN Reason Stop Dose Admin Docusate Sodium 100 mg 10/29/22 09:00 10/29/22 08:27 Docusate Sodium 100 Mg Capsule PO Not Given BID JANEL Enoxaparin Sodium 40 mg 10/28/22 23:45 10/29/22 00:54 Enoxaparin Sodium 40 Mg/0.4 Ml Syringe SUBCUT Not Given BEDTIME JANEL Folic Acid 1 mg 10/29/22 09:00 10/29/22 08:27 Folic Acid 1 Mg Tablet PO Not Given DAILY JANEL Sodium Chloride 3 ml 10/29/22 00:00 10/29/22 08:27 0.9 % Sodium Chloride Flush 3 Ml Syringe IVFLUSH 3 ml QSHIFT JANEL Administration Thiamine HCl 100 mg 10/29/22 09:00 10/29/22 08:27 Thiamine Hcl 100 Mg Tablet PO Not Given DAILY JANEL Discontinued Medications Generic Name Dose Route Start Last Admin Trade Name Freq PRN Reason Stop Dose Admin Haloperidol Lactate 5 mg 10/28/22 15:36 10/28/22 15:51 Haloperidol Lactate 5 Mg/Ml Vial IM 10/28/22 15:37 5 mg ONCE ONE Administration Sodium Chloride 1,000 mls @ 999 mls/hr 10/28/22 22:45 10/29/22 01:57 Ns IVCONT 10/28/22 23:45 Infused .Q1H1M JANEL Infusion Thiamine HCl 500 mg/ Sodium 105 mls @ 210 mls/hr 10/28/22 22:32 10/29/22 01:57 Chloride IV 10/28/22 23:01 Infused ONCE ONE Infusion Folic Acid 1 mg/ Sodium 50.2 mls @ 100.4 mls/hr 10/28/22 22:32 10/29/22 01:56 Chloride IV 10/28/22 23:01 Infused ONCE ONE Infusion Lorazepam 2 mg 10/28/22 15:36 10/28/22 15:51 Lorazepam 2 Mg/Ml Vial IM 10/28/22 15:37 2 mg ONCE ONE Administration Lorazepam 2 mg 10/28/22 22:31 10/28/22 22:49 Lorazepam 1 Mg Tablet PO 10/28/22 22:32 2 mg ONCE ONE Administration Phenobarbital Sodium 325 mg 10/29/22 00:30 10/29/22 00:54 Phenobarbital Sodium 130 Mg/Ml Im Once IM 10/29/22 00:31 325 mg ONCE ONE Administration Phenobarbital Sodium 247 mg 10/29/22 03:30 10/29/22 06:36 Phenobarbital Sodium 130 Mg/Ml Vial Im Q3hx2 IM 10/29/22 06:31 247 mg Q3H JANEL Administration <Mariah Jenkins NP - Last Filed: 10/28/22 23:48> Medical Decision Making Differential Diagnosis Differential Diagnoses: The differential diagnosis associated with the presentation includes <ANTONIO Mohan - Last Filed: 10/29/22 08:31> Alcohol withdrawal, alcohol abuse <ANTONIO Mohan - Last Filed: 10/29/22 08:31> Consult Healthcare Provider Management of the patient was discussed with: Hospitalist (agreed to admission) <ANTONIO Mohan - Last Filed: 10/29/22 08:31> Lab Data MDM Lab Attestation statement: I reviewed the patient's lab results. <ANTONIO Mohan - Last Filed: 10/29/22 08:31> Result Diagrams: 10/28/22 16:21 10/28/22 16:21 <ANTONIO Mohan - Last Filed: 10/29/22 08:31> Labs: Lab Results 10/28/22 10/28/22 10/28/22 Range/Units 14:50 16:21 16:21 WBC 6.2 (4.8-10.8) X10*3/uL RBC 5.33 (4.60-5.80) X10*6/uL Hgb 16.2 (14.0-18.0) g/dl Hct 46.7 (42.0-52.0) % MCV 87.6 (80.0-98.0) fL MCH 30.4 (27.0-33.0) pg MCHC 34.7 (31.0-36.0) g/dl RDW 13.6 (11.0-16.0) % Plt Count 274 D (160-400) X10*3/uL MPV 8.3 L (9.4-12.4) fL Immature Gran % (Auto) 0.5 H (0.0-0.4) % Neut % (Auto) 71.2 (45-73) % Lymph % (Auto) 22.9 (20-40) % [place] % (Auto) 4.7 (2-11) % Eos % (Auto) 0.2 (0-4) % Baso % (Auto) 0.5 (0-2) % Lymph # (Auto) 1.4 (1.2-4.9) X10*3/uL [place] # (Auto) 0.3 (0.1-1.2) X10*3/uL Eos # (Auto) 0.0 (0.0-0.4) X10*3/uL Baso # (Auto) 0.0 (0.0-0.2) X10*3/uL Abs Immat Gran (auto) 0.03 (0.00-0.03) X10*3/uL Absolute Neuts (auto) 4.4 (2.0-8.3) x10*3/uL Absolute Nucleated RBC 0.000 (0.0-0.012) X10*3/uL Nucleated RBC % (auto) 0.0 (0.0-0.2) /100WBC Sodium 146 H (135-145) mmol/L Potassium 3.7 (3.3-5.1) mmol/L Chloride 106 (96-108) mmol/L Carbon Dioxide 24 (22-29) mmol/L Anion Gap 20 (12-20) BUN 5 L (9-16) mg/dL Creatinine 0.79 (0.5-1.4) mg/dL Estim Creat Clear Calc 148.8 Estimated GFR > 60 POC Glucose 144 H (60-115) mg/dL Random Glucose 130 H (60-115) mg/dL Calcium 8.6 (8.4-10.2) mg/dL Magnesium 2.2 (1.6-2.6) mg/dL Total Bilirubin 0.4 (0.0-1.0) mg/dL AST 36 (5-37) U/L ALT 37 (0-40) U/L Alkaline Phosphatase 99 D (39-117) U/L Total Protein 7.2 (6.5-8.0) g/dL Albumin 4.5 (3.5-5.0) g/dL Urine Color Urine Appearance Urine pH (5.0-9.0) Ur Specific [place] (1.005-1.025) Urine Protein (Neg-Trace) mg/dL Urine Glucose (UA) (Negative) mg/dL Urine Ketones (Negative) mg/dL Urine Blood (Negative) Urine Nitrite (Negative) Ur Leukocyte Esterase (Negative) Urine Opiates Screen (Not Detect) Urine Fentanyl Screen (Not Detect) Ur Barbiturates Screen (Not Detect) Ur Phencyclidine Scrn (Not Detect) Ur Amphetamines Screen (Not Detect) U Benzodiazepines Scrn (Not Detect) Urine Cocaine Screen (Not Detect) U Marijuana (THC) Screen (Not Detect) Ethyl Alcohol 408 H* mg/dL COVID-19 (ESTEFANÍA) (Negative) COVID-19 Clin Com 10/28/22 10/28/22 10/28/22 Range/Units 16:47 20:29 20:29 WBC (4.8-10.8) X10*3/uL RBC (4.60-5.80) X10*6/uL Hgb (14.0-18.0) g/dl Hct (42.0-52.0) % MCV (80.0-98.0) fL MCH (27.0-33.0) pg MCHC (31.0-36.0) g/dl RDW (11.0-16.0) % Plt Count (160-400) X10*3/uL MPV (9.4-12.4) fL Immature Gran % (Auto) (0.0-0.4) % Neut % (Auto) (45-73) % Lymph % (Auto) (20-40) % [place] % (Auto) (2-11) % Eos % (Auto) (0-4) % Baso % (Auto) (0-2) % Lymph # (Auto) (1.2-4.9) X10*3/uL [place] # (Auto) (0.1-1.2) X10*3/uL Eos # (Auto) (0.0-0.4) X10*3/uL Baso # (Auto) (0.0-0.2) X10*3/uL Abs Immat Gran (auto) (0.00-0.03) X10*3/uL Absolute Neuts (auto) (2.0-8.3) x10*3/uL Absolute Nucleated RBC (0.0-0.012) X10*3/uL Nucleated RBC % (auto) (0.0-0.2) /100WBC Sodium (135-145) mmol/L Potassium (3.3-5.1) mmol/L Chloride (96-108) mmol/L Carbon Dioxide (22-29) mmol/L Anion Gap (12-20) BUN (9-16) mg/dL Creatinine (0.5-1.4) mg/dL Estim Creat Clear Calc Estimated GFR POC Glucose (60-115) mg/dL Random Glucose (60-115) mg/dL Calcium (8.4-10.2) mg/dL Magnesium (1.6-2.6) mg/dL Total Bilirubin (0.0-1.0) mg/dL AST (5-37) U/L ALT (0-40) U/L Alkaline Phosphatase (39-117) U/L Total Protein (6.5-8.0) g/dL Albumin (3.5-5.0) g/dL Urine Color Yellow Urine Appearance Clear Urine pH 6.5 (5.0-9.0) Ur Specific [place] <= 1.005 (1.005-1.025) Urine Protein Negative (Neg-Trace) mg/dL Urine Glucose (UA) Negative (Negative) mg/dL Urine Ketones Negative (Negative) mg/dL Urine Blood Negative (Negative) Urine Nitrite Negative (Negative) Ur Leukocyte Esterase Negative (Negative) Urine Opiates Screen Not Detected (Not Detect) Urine Fentanyl Screen Not Detected (Not Detect) Ur Barbiturates Screen POSITIVE H (Not Detect) Ur Phencyclidine Scrn Not Detected (Not Detect) Ur Amphetamines Screen Not Detected (Not Detect) U Benzodiazepines Scrn Not Detected (Not Detect) Urine Cocaine Screen Not Detected (Not Detect) U Marijuana (THC) Screen Not Detected (Not Detect) Ethyl Alcohol mg/dL COVID-19 (ESTEFANÍA) Negative (Negative) COVID-19 Clin Com See Note <ANTONIO Mohan - Last Filed: 10/29/22 08:31> Lab Results 10/28/22 10/28/22 10/28/22 Range/Units 14:50 16:21 16:21 WBC 6.2 (4.8-10.8) X10*3/uL RBC 5.33 (4.60-5.80) X10*6/uL Hgb 16.2 (14.0-18.0) g/dl Hct 46.7 (42.0-52.0) % MCV 87.6 (80.0-98.0) fL MCH 30.4 (27.0-33.0) pg MCHC 34.7 (31.0-36.0) g/dl RDW 13.6 (11.0-16.0) % Plt Count 274 D (160-400) X10*3/uL MPV 8.3 L (9.4-12.4) fL Immature Gran % (Auto) 0.5 H (0.0-0.4) % Neut % (Auto) 71.2 (45-73) % Lymph % (Auto) 22.9 (20-40) % [place] % (Auto) 4.7 (2-11) % Eos % (Auto) 0.2 (0-4) % Baso % (Auto) 0.5 (0-2) % Lymph # (Auto) 1.4 (1.2-4.9) X10*3/uL [place] # (Auto) 0.3 (0.1-1.2) X10*3/uL Eos # (Auto) 0.0 (0.0-0.4) X10*3/uL Baso # (Auto) 0.0 (0.0-0.2) X10*3/uL Abs Immat Gran (auto) 0.03 (0.00-0.03) X10*3/uL Absolute Neuts (auto) 4.4 (2.0-8.3) x10*3/uL Absolute Nucleated RBC 0.000 (0.0-0.012) X10*3/uL Nucleated RBC % (auto) 0.0 (0.0-0.2) /100WBC Sodium 146 H (135-145) mmol/L Potassium 3.7 (3.3-5.1) mmol/L Chloride 106 (96-108) mmol/L Carbon Dioxide 24 (22-29) mmol/L Anion Gap 20 (12-20) BUN 5 L (9-16) mg/dL Creatinine 0.79 (0.5-1.4) mg/dL Estim Creat Clear Calc 148.8 Estimated GFR > 60 POC Glucose 144 H (60-115) mg/dL Random Glucose 130 H (60-115) mg/dL Calcium 8.6 (8.4-10.2) mg/dL Magnesium 2.2 (1.6-2.6) mg/dL Total Bilirubin 0.4 (0.0-1.0) mg/dL AST 36 (5-37) U/L ALT 37 (0-40) U/L Alkaline Phosphatase 99 D (39-117) U/L Total Protein 7.2 (6.5-8.0) g/dL Albumin 4.5 (3.5-5.0) g/dL Urine Color Urine Appearance Urine pH (5.0-9.0) Ur Specific [place] (1.005-1.025) Urine Protein (Neg-Trace) mg/dL Urine Glucose (UA) (Negative) mg/dL Urine Ketones (Negative) mg/dL Urine Blood (Negative) Urine Nitrite (Negative) Ur Leukocyte Esterase (Negative) Urine Opiates Screen (Not Detect) Urine Fentanyl Screen (Not Detect) Ur Barbiturates Screen (Not Detect) Ur Phencyclidine Scrn (Not Detect) Ur Amphetamines Screen (Not Detect) U Benzodiazepines Scrn (Not Detect) Urine Cocaine Screen (Not Detect) U Marijuana (THC) Screen (Not Detect) Ethyl Alcohol 408 H* mg/dL COVID-19 (ESTEFANÍA) (Negative) COVID-19 Clin Com 10/28/22 10/28/22 10/28/22 Range/Units 16:47 20:29 20:29 WBC (4.8-10.8) X10*3/uL RBC (4.60-5.80) X10*6/uL Hgb (14.0-18.0) g/dl Hct (42.0-52.0) % MCV (80.0-98.0) fL MCH (27.0-33.0) pg MCHC (31.0-36.0) g/dl RDW (11.0-16.0) % Plt Count (160-400) X10*3/uL MPV (9.4-12.4) fL Immature Gran % (Auto) (0.0-0.4) % Neut % (Auto) (45-73) % Lymph % (Auto) (20-40) % [place] % (Auto) (2-11) % Eos % (Auto) (0-4) % Baso % (Auto) (0-2) % Lymph # (Auto) (1.2-4.9) X10*3/uL [place] # (Auto) (0.1-1.2) X10*3/uL Eos # (Auto) (0.0-0.4) X10*3/uL Baso # (Auto) (0.0-0.2) X10*3/uL Abs Immat Gran (auto) (0.00-0.03) X10*3/uL Absolute Neuts (auto) (2.0-8.3) x10*3/uL Absolute Nucleated RBC (0.0-0.012) X10*3/uL Nucleated RBC % (auto) (0.0-0.2) /100WBC Sodium (135-145) mmol/L Potassium (3.3-5.1) mmol/L Chloride (96-108) mmol/L Carbon Dioxide (22-29) mmol/L Anion Gap (12-20) BUN (9-16) mg/dL Creatinine (0.5-1.4) mg/dL Estim Creat Clear Calc Estimated GFR POC Glucose (60-115) mg/dL Random Glucose (60-115) mg/dL Calcium (8.4-10.2) mg/dL Magnesium (1.6-2.6) mg/dL Total Bilirubin (0.0-1.0) mg/dL AST (5-37) U/L ALT (0-40) U/L Alkaline Phosphatase (39-117) U/L Total Protein (6.5-8.0) g/dL Albumin (3.5-5.0) g/dL Urine Color Yellow Urine Appearance Clear Urine pH 6.5 (5.0-9.0) Ur Specific [place] <= 1.005 (1.005-1.025) Urine Protein Negative (Neg-Trace) mg/dL Urine Glucose (UA) Negative (Negative) mg/dL Urine Ketones Negative (Negative) mg/dL Urine Blood Negative (Negative) Urine Nitrite Negative (Negative) Ur Leukocyte Esterase Negative (Negative) Urine Opiates Screen Not Detected (Not Detect) Urine Fentanyl Screen Not Detected (Not Detect) Ur Barbiturates Screen POSITIVE H (Not Detect) Ur Phencyclidine Scrn Not Detected (Not Detect) Ur Amphetamines Screen Not Detected (Not Detect) U Benzodiazepines Scrn Not Detected (Not Detect) Urine Cocaine Screen Not Detected (Not Detect) U Marijuana (THC) Screen Not Detected (Not Detect) Ethyl Alcohol mg/dL COVID-19 (ESTEFANÍA) Negative (Negative) COVID-19 Clin Com See Note <Mariah Jenkins NP - Last Filed: 10/28/22 23:48> Discharge Plan Discharge Clinical Impression: Alcohol use disorder, severe, dependence, Alcohol withdrawal <ANTONIO Mohan - Last Filed: 10/29/22 08:31> Patient Disposition: Admitted As Inpatient <ANTONIO Mohan - Last Filed: 10/29/22 08:31> Interventions: [place]-Suicide Risk Severity Scale Last Done: 10/29/22 08:00 <ANTONIO Mohan - Last Filed: 10/29/22 08:31>
[2022-10-28] MEDS: LORazepam 2 MG/ML VIAL IM (15:51)
[2022-10-28] MEDS: Haloperidol Lactate 5 MG/ML VIAL IM (15:51)
--- NOTE | 2022-10-28 15:52 | PC.NURSE ---
pt agitated in hallway, threatening towards staff and self, security at bedside, IM medication given per ANTONIO Perdue. pt now resting comfortably in stretcher
[2022-10-28 16:25] LABS: MANUAL DIFF FLAG NO
[2022-10-28 16:27] LABS: Basophils Percent Auto 0.5 % (0-2); Eosinophils Percent Auto 0.2 % (0-4); Hematocrit 46.7 % (42.0-52.0); Hemoglobin 16.2 g/dl (14.0-18.0); Imm Gran Abs Auto 0.03 X10*3/uL (0.00-0.03); Imm Gran Pct Auto 0.5 % (0.0-0.4); Lymphocytes Absolute Auto 1.4 X10*3/uL (1.2-4.9); Lymphocytes Percent Auto 22.9 % (20-40); Mean Corpuscular HGB Conc 34.7 g/dl (31.0-36.0); Mean Corpuscular Hemoglobin 30.4 pg (27.0-33.0); Mean Corpuscular Volume 87.6 fL (80.0-98.0); Mean Platelet Volume 8.3 fL (9.4-12.4); Monocytes Absolute Auto 0.3 X10*3/uL (0.1-1.2); Monocytes Percent Auto 4.7 % (2-11); Neutrophils Absolute Auto 4.4 x10*3/uL (2.0-8.3); Neutrophils Percent Auto 71.2 % (45-73); Platelet Count 274 X10*3/uL (160-400); Red Blood Count 5.33 X10*6/uL (4.60-5.80); Red Cell Distribution Width 13.6 % (11.0-16.0); White Blood Count 6.2 X10*3/uL (4.8-10.8)
[2022-10-28 16:49] LABS: Alanine Aminotransferase 37 U/L (0-40); Albumin Level 4.5 g/dL (3.5-5.0); Alkaline Phosphatase 99 U/L (39-117); Anion Gap 20 (12-20); Aspartate Amino Transferase 36 U/L (5-37); Bilirubin Total 0.4 mg/dL (0.0-1.0); Blood Urea Nitrogen 5 mg/dL (9-16); Calcium 8.6 mg/dL (8.4-10.2); Carbon Dioxide 24 mmol/L (22-29); Chloride 106 mmol/L (96-108); Creatinine Clr Calc Pharmacy 148.8; Estimated Glomerular Filt Rate > 60; Ethanol 408 mg/dL; Glucose Random 130 mg/dL (60-115); Magnesium 2.2 mg/dL (1.6-2.6); Potassium 3.7 mmol/L (3.3-5.1); Sodium 146 mmol/L (135-145); Total Protein 7.2 g/dL (6.5-8.0)
[2022-10-28 17:17] LABS: IDNOW Serial# 9DB6401D
[2022-10-28 17:18] LABS: COVID-19 Test Negative (Negative)
--- NOTE | 2022-10-28 17:34 | MHC.RECOVSUP ---
Addendum entered by Analisa Harrell, [facility] 10/28/22 19:30: [facility] contacted CARE team - unable to accommodate an admission tonight, encouraged to follow up in the morning. Original Note: ? Reason for consult Recovery Support o Current location: ED22H o Identified substance use concern: NA - Seeking ATS (detox) - Support ? Intervention: o ATS bed search started/completed/in process o Community resources provided o Harm reduction discussion ? Plan: o Follow up tomorrow ? Additional information: Patient seeking ATS but cant do an in take at the moment.. I called [facility] and they stated that no beds at the moment. I called [facility] and there was a possibility but patient cant do intake but [facility] was able to leave info.. They stated that if patient makes it to [facility] at 8 AM they would have a bed.
--- NOTE | 2022-10-28 17:52 | PHA.MEDREC ---
Pharmacy Consult ? Medication Reconciliation Pharmacy has completed the medication reconciliation.Patient sleeping and difficult to wake. Med rec done based on claim history. Ernestine Smyth, EliesD
--- NOTE | 2022-10-28 19:47 | PC.NURSE ---
Assumed care of pt. at 1900. Pt. sleeping at that time. Jamarcusor arrived about 194 and pt. now sitting at beside speaking with visitor.
[2022-10-28 20:44] LABS: Appearance Urine Clear; Color Urine Yellow; Glucose Urine UA Negative (Negative); Leukocyte Esterase Urine Negative (Negative); Nitrite Urine Negative (Negative); PH 6.5 (5.0-9.0); Specific Gravity - Urine <= 1.005 (1.005-1.025); Urine Blood Negative (Negative); Urine Ketones Negative (Negative); Urine Protein Negative (Neg-Trace)
[2022-10-28 20:46] LABS: Amphetamine Screen Urine Not Detected (Not Detect); Barbiturates, Urine POSITIVE (Not Detect); Benzodiazepines Screen Urine Not Detected (Not Detect); Cannabinoid Screen Urine Not Detected (Not Detect); Cocaine Screen Urine Not Detected (Not Detect); Fentanyl, urine Not Detected (Not Detect); Opiate Screen Urine Not Detected (Not Detect); Phencyclidine Screen Urine Not Detected (Not Detect)
[2022-10-28] MEDS: LORazepam 1 MG TABLET 2 MG PO (22:49)
[2022-10-28] MEDS: 0.9 % Sodium Chloride 1,000 ML 999 ML IVCONT (23:13)
--- NOTE | 2022-10-28 23:13 | PC.NURSE ---
pt medicated w po ativan, 22G IV placed right AC, 1L NS running.
[2022-10-28 23:20] VITALS: BP 131/83; PULSE 107; RESP 18; TEMP 37.4; O2SAT 95
[2022-10-28] MEDS: Folic Acid 1 MG in 0.9 % Sodium Chloride 50 ML 100.4 MG IV (23:24)
[2022-10-28] MEDS: Thiamine HCL 500 MG in 0.9 % Sodium Chloride 100 ML 210 MG IV (23:24)
--- NOTE | 2022-10-28 23:43 | PM.IMHP ---
History of Present Illness Date of Service: 10/28/22 Chief Complaint: Alcohol abuse patient is a 36-year-old male with past medical history of alcohol abuse, presents to the hospital wanting to detox from alcohol.. Patient reports that he intentionally stopped drinking and is interested in detox. Patient reports that he drinks daily All throughout the day, he is feeling anxious at this time. Denies any Chest pain, no shortness of breath,abdominal pain nausea or vomiting, no diarrhea constipation, no urinary symptoms and no lower extremity edema. On arrival to the ED patient hemodynamically stable no significant abnormal vitals , patient was noted to have a heart rate of 130 that has now improved Labs are significant for WBC count of 4.7, labs otherwise unremarkable, he has barbiturates in his urine which were positive in the past, as well as alcohol level of 408. Patient start on phenobarb protocol as he started withdrawing while in the ED Review of Systems Review of Systems: Yes all other systems are reviewed and are negative [facility] Medical History Alcohol dependence in early full remission Anxiety Anxiety and depression COVID-19 vaccination declined Left ankle pain Refused influenza vaccine Family History Father Anxiety Mental health disorder Mother Depression Mental health disorder Brother Substance use disorder Mental health disorder Sister Mental health disorder Son No problems noted. Son No problems noted. Paternal Grandfather Substance use disorder Maternal Uncle Substance use disorder Surgical History History of removal of cyst Social History Household Members: Family Housing: House Do you presently have visiting nurse or other home services: No Alcohol intake: current Alcohol intake frequency: a few times a month Alcohol type: hard liquor Patient Tobacco Use Status: Former Tobacco user Tobacco use type: Cigarette Years Smoked: 6 months e-Cigarette/Vaping Use: Never Used Second Hand Smoke Exposure: No Substance Use Type: Marijuana and Unknown Advance Directives: No Advance Directives Information Provided: No service: No Current occupational status: employed Cognitive needs: No Hearing needs: No Vision needs: No Meds Allergies Allergy/AdvReac Type Severity Reaction Status Date / Time penicillin V Allergy Unknown anaphylaxis Verified 09/19/22 09:53 Active Medications: Current Medications Sodium Chloride (Ns) 1,000 mls @ 999 mls/hr IVCONT .Q1H1M JANEL Stop: 10/28/22 23:45 Last Admin: 10/28/22 23:13 Dose: 999 mls/hr Pharmacy Consult (Consult Rx Perform Med Rec) 1 each MISCELLANE ONCE PRN PRN Reason: Consult order Home Medications Medication Instructions Recorded Confirmed Last Taken Type quetiapine 50 mg tablet 50 mg PO BEDTIME 09/19/22 10/28/22 Unknown History pantoprazole 40 mg tablet,delayed 1 tab PO DAILY 10/28/22 10/28/22 Unknown History release Physical Exam Vital Signs and Narrative: Vital Signs: Last Vital Signs Temp 99.4 F 10/28/22 23:20 Pulse 107 H 10/28/22 23:20 Resp 18 10/28/22 23:20 BP 131/83 10/28/22 23:20 Pulse Ox 95 10/28/22 23:20 O2 Del Method 10/28/22 23:20 BMI result Body Mass Index 25.7 Const: Other: anxious General: cooperative and no acute distress Orientation/consciousness: patient oriented x3 Eyes: General: appearance normal, both eyes and all related structures Resp: Effort & Inspection: normal respiratory effort Auscultation: clear to auscultation bilaterally Cardio: Rate: regular rate Rhythm: regular rhythm GI: Palpation (GI): Soft to palpation Auscultation: normal bowel sounds Skin: General skin exam: no rashes or lesions noted Neuro: General: patient oriented x3 Cognition (Neuro): normal cognition Extrem: General: Yes normal to inspection and Yes no pedal edema Results Labs 10/28/22 16:21 10/28/22 16:21 Labs: Laboratory Results - last 24 hr 10/28/22 10/28/22 10/28/22 14:50 16:21 16:21 MCV 87.6 MCH 30.4 MCHC 34.7 RDW 13.6 Plt Count 274 D MPV 8.3 L Immature Gran % (Auto) 0.5 H Neut % (Auto) 71.2 Lymph % (Auto) 22.9 [place] % (Auto) 4.7 Eos % (Auto) 0.2 Baso % (Auto) 0.5 Lymph # (Auto) 1.4 [place] # (Auto) 0.3 Eos # (Auto) 0.0 Baso # (Auto) 0.0 Abs Immat Gran (auto) 0.03 Absolute Neuts (auto) 4.4 Absolute Nucleated RBC 0.000 Nucleated RBC % (auto) 0.0 Anion Gap 20 Estim Creat Clear Calc 148.8 Estimated GFR > 60 POC Glucose 144 H Random Glucose 130 H Calcium 8.6 Magnesium 2.2 Total Bilirubin 0.4 AST 36 ALT 37 Alkaline Phosphatase 99 D Total Protein 7.2 Albumin 4.5 Urine Color Urine Appearance Urine pH Ur Specific [place] Urine Protein Urine Glucose (UA) Urine Ketones Urine Blood Urine Nitrite Ur Leukocyte Esterase Urine Opiates Screen Urine Fentanyl Screen Ur Barbiturates Screen Ur Phencyclidine Scrn Ur Amphetamines Screen U Benzodiazepines Scrn Urine Cocaine Screen U Marijuana (THC) Screen Ethyl Alcohol 408 H* COVID-19 (ESTEFANÍA) COVID-[facility] 10/28/22 10/28/22 10/28/22 16:47 20:29 20:29 MCV MCH MCHC RDW Plt Count MPV Immature Gran % (Auto) Neut % (Auto) Lymph % (Auto) [place] % (Auto) Eos % (Auto) Baso % (Auto) Lymph # (Auto) [place] # (Auto) Eos # (Auto) Baso # (Auto) Abs Immat Gran (auto) Absolute Neuts (auto) Absolute Nucleated RBC Nucleated RBC % (auto) Anion Gap Estim Creat Clear Calc Estimated GFR POC Glucose Random Glucose Calcium Magnesium Total Bilirubin AST ALT Alkaline Phosphatase Total Protein Albumin Urine Color Yellow Urine Appearance Clear Urine pH 6.5 Ur Specific [place] <= 1.005 Urine Protein Negative Urine Glucose (UA) Negative Urine Ketones Negative Urine Blood Negative Urine Nitrite Negative Ur Leukocyte Esterase Negative Urine Opiates Screen Not Detected Urine Fentanyl Screen Not Detected Ur Barbiturates Screen POSITIVE H Ur Phencyclidine Scrn Not Detected Ur Amphetamines Screen Not Detected U Benzodiazepines Scrn Not Detected Urine Cocaine Screen Not Detected U Marijuana (THC) Screen Not Detected Ethyl Alcohol COVID-19 (ESTEFANÍA) Negative COVID-[facility] See Note Assessment and Plan (1) Alcohol use disorder, severe, dependence: Status: Acute (2) Alcohol withdrawal: Status: Acute Plan 36-year-old male with past medical history of alcohol abuse, depression anxiety presents the hospital with attention to detox from alcohol, as well as having withdrawals # alcohol abuse with withdrawal - patient start phenobarb protocol - thiamine and folic acid - care team consulted # depression anxiety - continue Seroquel, BuSpar DVT prophylaxis: Lovenox given patient's withdrawal requiring phenobarb him as well as p.o. patient require minimum 2 nights inpatient hospital stay for further management Time Spent With Patient Time: Total time managing care of this patient today ____ minutes. Quality Stroke Does the patient have a stroke diagnosis?: No VTE Prior VTE?: No VTE Risk Level:: Medical - moderate - high VTE Device Contraindication: Treatment Not Indicated VTE Drug Contraindication: N/A - Med Ordered
[2022-10-29] VITALS (7 sets, daily range): BP systolic 116–147; BP diastolic 66–89; PULSE 77–110; RESP 16–20; TEMP 36.8–37.4; O2SAT 95–98
[2022-10-29] MEDS: PHENobarbitaL sodium 130 MG/ML IM ONCE 325 MG IM (00:54)
[2022-10-29] MEDS: PHENobarbitaL sodium 130 MG/ML VIAL IM Q3Hx2 247 MG IM ×2 (03:38→06:36)
--- NOTE | 2022-10-29 03:44 | PC.NURSE ---
pt is alert and oriented resting comfortably in bed no signs of acute distress notice breathing equally unlabored close monitoring maintained
--- NOTE | 2022-10-29 03:52 | PC.NURSE ---
Addendum entered by Neisha Emery 10/29/22 03:54: Pt's family was attempting to have the pt. sectioned. They waited at court until 4pm but were unable to obtain. We will encourage pt. to transfer to a detox program. Original Note: Pt. began to express discomfort and high anxiety over w/d symptoms. CIWA was completed with a score of 16. MD began phenobarbital protocol. 1st dose administered. Pt. received fluids and thiamine and folic acid. Pt. sleeping in bed. No distress noted. Spoke with care team and they will continue with detox bed search in the morning as they were unable to find a bed for tonight. Pt. expressed that he does not want to go to [facility] in [place].
[2022-10-29 05:47] LABS: MANUAL DIFF FLAG NO
[2022-10-29 05:52] LABS: Basophils Percent Auto 0.9 % (0-2); Eosinophils Percent Auto 0.6 % (0-4); Hematocrit 42.3 % (42.0-52.0); Hemoglobin 14.5 g/dl (14.0-18.0); Imm Gran Abs Auto 0.01 X10*3/uL (0.00-0.03); Imm Gran Pct Auto 0.2 % (0.0-0.4); Lymphocytes Absolute Auto 1.7 X10*3/uL (1.2-4.9); Lymphocytes Percent Auto 35.8 % (20-40); Mean Corpuscular HGB Conc 34.3 g/dl (31.0-36.0); Mean Corpuscular Hemoglobin 30.1 pg (27.0-33.0); Mean Corpuscular Volume 87.9 fL (80.0-98.0); Mean Platelet Volume 8.4 fL (9.4-12.4); Monocytes Absolute Auto 0.6 X10*3/uL (0.1-1.2); Monocytes Percent Auto 11.8 % (2-11); Neutrophils Absolute Auto 2.4 x10*3/uL (2.0-8.3); Neutrophils Percent Auto 50.7 % (45-73); Platelet Count 244 X10*3/uL (160-400); Red Blood Count 4.81 X10*6/uL (4.60-5.80); Red Cell Distribution Width 13.4 % (11.0-16.0); White Blood Count 4.7 X10*3/uL (4.8-10.8)
[2022-10-29 06:56] LABS: Anion Gap 16 (12-20); Blood Urea Nitrogen 5 mg/dL (9-16); Calcium 8.1 mg/dL (8.4-10.2); Carbon Dioxide 22 mmol/L (22-29); Chloride 106 mmol/L (96-108); Estimated Glomerular Filt Rate > 60; Glucose Random 96 mg/dL (60-115); Potassium 3.8 mmol/L (3.3-5.1); Sodium 140 mmol/L (135-145)
--- NOTE | 2022-10-29 07:23 | PC.NURSE ---
Report to SUE Tyler
--- NOTE | 2022-10-29 07:45 | P.PNIM_ITS ---
Subjective Subjective Date of Service: 10/29/22 Interval History: I feel like I am doing better than when I tried to detox at home or when I came in. Patient reports that he still feels as if he is tremulous however feels better than he would be home. Reports nausea however there has been no vomiting. Patient reports he tolerated the IM injections of phenobarbital well. He is loo lance forward to going to detox. Review of Systems A complete 12 point review of systems was performed and are negative if not noted in HPI. Physical Exam Vital Signs: Vital Signs: Last Vital Signs Temp 99.2 F 10/29/22 03:44 Pulse 106 H 10/29/22 06:18 Resp 17 10/29/22 06:18 BP 121/83 10/29/22 06:18 Pulse Ox 95 10/29/22 06:18 O2 Del Method 10/29/22 06:18 BMI result Body Mass Index 25.7 Const: Other: General: Appears stated age, in no acute distress, lying in stretcher sleeping however easily arousable and will answer questions accurately. Skin: Warm and well perfused, flushed, no obvious lesions, bruises, open wounds or abrasions Cardiology: Regular rate and rhythm to tachycardic on monitor intermittently, no murmurs, rubs, gallops or clicks, no JVD or carotid bruits appreciated Respiratory: Lungs CTAB, no inspiratory wheezing rales or rhonchi Abdomen: Soft, nondistended, bowel sounds present in all four quadrants, no [place] sign Extremity: No bilateral lower pedal or pitting edema noted, no redness, tenderness or swelling noted to bilateral lower extremities. Neuro: Alert and oriented x3, positive hand tremors/liver flap with extension of upper extremities noted. Psych: Calm, follows commands, no agitation restlessness noted Objective Data Active Medications Acetaminophen (Acetaminophen 325 Mg Tablet) 650 mg PO Q6H PRN PRN Reason: Pain, Mild (Pain Scale 1-3) Docusate Sodium (Docusate Sodium 100 Mg Capsule) 100 mg PO BID [facility] Enoxaparin Sodium (Enoxaparin Sodium 40 Mg/0.4 Ml Syringe) 40 mg SUBCUT BEDTIME [facility] Last Admin: 10/29/22 00:54 Dose: Not Given Documented By: BLANCHE Non-Admin Reason: Patient Refused Folic Acid (Folic Acid 1 Mg Tablet) 1 mg PO DAILY [facility] Ondansetron HCl (Ondansetron Hcl 4 Mg/2 Ml Vial) 4 mg IVPUSH Q8H PRN PRN Reason: Nausea and Vomiting Pharmacy Consult (Consult Rx Perform Med Rec) 1 each MISCELLANE ONCE PRN PRN Reason: Consult order Pharmacy Consult (Consult Rx Etoh Phenob Po Only) 1 each MISCELLANE ONCE PRN; Protocol PRN Reason: Consult order Phenobarbital (Phenobarbital 30 Mg Tablet) 60 mg PO BID [facility] Stop: 10/31/22 09:01 Phenobarbital (Phenobarbital 30 Mg Tablet) 30 mg PO BID [facility] Stop: 11/02/22 09:01 Phenobarbital (Phenobarbital 30 Mg Tablet) 30 mg PO DAILY [facility] Stop: 11/04/22 09:01 Sodium Chloride (0.9 % Sodium Chloride Flush 3 Ml Syringe) 3 ml IVFLUSH QSHIFT [facility] Last Admin: 10/29/22 01:56 Dose: Not Given Documented By: BLANCHE Non-Admin Reason: Previously Administered Thiamine HCl (Thiamine Hcl 100 Mg Tablet) 100 mg PO DAILY [facility] Labs 10/29/22 05:38 10/29/22 05:38 Labs: Laboratory Results - last 24 hr 10/28/22 10/28/22 10/28/22 14:50 16:21 16:21 MCV 87.6 MCH 30.4 MCHC 34.7 RDW 13.6 Plt Count 274 D MPV 8.3 L Immature Gran % (Auto) 0.5 H Neut % (Auto) 71.2 Lymph % (Auto) 22.9 [place] % (Auto) 4.7 Eos % (Auto) 0.2 Baso % (Auto) 0.5 Lymph # (Auto) 1.4 [place] # (Auto) 0.3 Eos # (Auto) 0.0 Baso # (Auto) 0.0 Abs Immat Gran (auto) 0.03 Absolute Neuts (auto) 4.4 Absolute Nucleated RBC 0.000 Nucleated RBC % (auto) 0.0 Anion Gap 20 Estim Creat Clear Calc 148.8 Estimated GFR > 60 POC Glucose 144 H Random Glucose 130 H Calcium 8.6 Magnesium 2.2 Total Bilirubin 0.4 AST 36 ALT 37 Alkaline Phosphatase 99 D Total Protein 7.2 Albumin 4.5 Urine Color Urine Appearance Urine pH Ur Specific [place] Urine Protein Urine Glucose (UA) Urine Ketones Urine Blood Urine Nitrite Ur Leukocyte Esterase Urine Opiates Screen Urine Fentanyl Screen Ur Barbiturates Screen Ur Phencyclidine Scrn Ur Amphetamines Screen U Benzodiazepines Scrn Urine Cocaine Screen U Marijuana (THC) Screen Ethyl Alcohol 408 H* COVID-19 (ESTEFANÍA) COVID-19 Clin Com 10/28/22 10/28/22 10/28/22 16:47 20:29 20:29 MCV MCH MCHC RDW Plt Count MPV Immature Gran % (Auto) Neut % (Auto) Lymph % (Auto) [place] % (Auto) Eos % (Auto) Baso % (Auto) Lymph # (Auto) [place] # (Auto) Eos # (Auto) Baso # (Auto) Abs Immat Gran (auto) Absolute Neuts (auto) Absolute Nucleated RBC Nucleated RBC % (auto) Anion Gap Estim Creat Clear Calc Estimated GFR POC Glucose Random Glucose Calcium Magnesium Total Bilirubin AST ALT Alkaline Phosphatase Total Protein Albumin Urine Color Yellow Urine Appearance Clear Urine pH 6.5 Ur Specific [place] <= 1.005 Urine Protein Negative Urine Glucose (UA) Negative Urine Ketones Negative Urine Blood Negative Urine Nitrite Negative Ur Leukocyte Esterase Negative Urine Opiates Screen Not Detected Urine Fentanyl Screen Not Detected Ur Barbiturates Screen POSITIVE H Ur Phencyclidine Scrn Not Detected Ur Amphetamines Screen Not Detected U Benzodiazepines Scrn Not Detected Urine Cocaine Screen Not Detected U Marijuana (THC) Screen Not Detected Ethyl Alcohol COVID-19 (ESTEFANÍA) Negative COVID-19 Clin Com See Note 10/29/22 10/29/22 05:38 05:38 MCV 87.9 MCH 30.1 MCHC 34.3 RDW 13.4 Plt Count 244 MPV 8.4 L Immature Gran % (Auto) 0.2 Neut % (Auto) 50.7 Lymph % (Auto) 35.8 [place] % (Auto) 11.8 H Eos % (Auto) 0.6 Baso % (Auto) 0.9 Lymph # (Auto) 1.7 [place] # (Auto) 0.6 Eos # (Auto) 0.0 Baso # (Auto) 0.0 Abs Immat Gran (auto) 0.01 Absolute Neuts (auto) 2.4 Absolute Nucleated RBC 0.000 Nucleated RBC % (auto) 0.0 Anion Gap 16 Estim Creat Clear Calc 161.0 Estimated GFR > 60 POC Glucose Random Glucose 96 Calcium 8.1 L Magnesium Total Bilirubin AST ALT Alkaline Phosphatase Total Protein Albumin Urine Color Urine Appearance Urine pH Ur Specific [place] Urine Protein Urine Glucose (UA) Urine Ketones Urine Blood Urine Nitrite Ur Leukocyte Esterase Urine Opiates Screen Urine Fentanyl Screen Ur Barbiturates Screen Ur Phencyclidine Scrn Ur Amphetamines Screen U Benzodiazepines Scrn Urine Cocaine Screen U Marijuana (THC) Screen Ethyl Alcohol COVID-19 (ESTEFANÍA) COVID-19 Clin Com Assessment and Plan (1) Alcohol use disorder, severe, dependence: Status: Acute (2) Alcohol withdrawal: Status: Acute (3) Anxiety and depression: Status: Acute Plan This is a 36-year-old male with past medical history of alcohol abuse, depression and anxiety presents the hospital with attention to detox from alcohol, as well as having withdrawals Alcohol abuse with withdrawal - patient started on phenobarbital protocol. Tolerating it well. - thiamine, folic acid and multivitamin ordered. - clonidine ordered b.i.d. with holding parameters - care team consulted Depression Anxiety -patient denies SI/HI. continue Seroquel at bedtime -patient's buspirone was continued however patient reports he has yet to take this and does not want to take this at this time. Hydroxyzine was ordered however patient also declines as he reports that he feels chest tightness. -Haldol 5 mg IV to be given once. -patient request to speak with Psychiatry. Consult placed. Hydroxyzine p.r.n. anxiety added along with OTHER: DVT prophylaxis: Lovenox Patient is a full code Person to contact is patients mother Elsa Labreque, Father can also be notified, Brandon Labreque, Case and plan discussed with Dr Vidya Mcdaniel Given patient's withdrawal requiring phenobarb him as well as p.o. patient require minimum 2 nights inpatient hospital stay for further management Time Spent With Patient Time: Total time managing care of this patient today ____ minutes. Quality Stroke Does the patient have a stroke diagnosis?: No VTE Prior VTE?: No VTE Risk Level:: Medical - moderate - high VTE Device Contraindication: Treatment Not Indicated VTE Drug Contraindication: N/A - Med Ordered
[2022-10-29] MEDS: 0.9 % Sodium Chloride Flush 3 ML SYRINGE IVFLUSH ×2 (08:27→15:59)
--- NOTE | 2022-10-29 15:29 | MHC.CLN ---
NUTRITION CONSULT FOR DECREASED APPETITE AND ORAL INTAKE. CURRENTLY WITH ALCOHOL WITHDRAWAL. PATIENT ANTICIPATES THAT HE WILL EAT BETTER WHEN HE BEGINS TO FEEL BETTER. DOES NOT WANT NUTRITIONAL SUPPLEMENT AT THIS TIME.
[2022-10-29] MEDS: Haloperidol Lactate 5 MG/ML VIAL IVPUSH (15:59)
[2022-10-29] MEDS: PHENobarbitaL 30 MG TABLET 60 MG PO (21:56)
[2022-10-29] MEDS: QUEtiapine Fumarate 50 MG TABLET PO (21:56)
[2022-10-29] MEDS: cloNIDine HCL 0.1 MG TABLET PO (21:56)
[2022-10-30 04:00] VITALS: BP 123/81; PULSE 85; RESP 18; TEMP 36.3; O2SAT 99
[2022-10-30] MEDS: 0.9 % Sodium Chloride Flush 3 ML SYRINGE IVFLUSH ×2 (04:09→09:52)
[2022-10-30] MEDS: Omeprazole 20 MG CAPSULE.DR PO (05:58)
[2022-10-30 07:45] VITALS: BP 129/85; PULSE 81; RESP 17; TEMP 37.1; O2SAT 97
[2022-10-30 07:57] LABS: Hematocrit 43.9 % (42.0-52.0); Hemoglobin 15.1 g/dl (14.0-18.0); Mean Corpuscular HGB Conc 34.4 g/dl (31.0-36.0); Mean Corpuscular Hemoglobin 30.9 pg (27.0-33.0); Mean Corpuscular Volume 89.8 fL (80.0-98.0); Platelet Count 225 X10*3/uL (160-400); Red Blood Count 4.89 X10*6/uL (4.60-5.80); Red Cell Distribution Width 13.2 % (11.0-16.0); White Blood Count 4.9 X10*3/uL (4.8-10.8)
[2022-10-30] MEDS: PHENobarbitaL 30 MG TABLET 60 MG PO (09:51)
[2022-10-30] MEDS: Multivitamin TABLET 1 TAB PO (09:51)
--- NOTE | 2022-10-30 11:24 | MHC.RECOVRN ---
This justowriter operator met w/ patient, patient was alert, awake, sitting up in bed watching television. 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 Patient states has an AA sponsor and attends meetings several times per week. Patient reports had been in recovery from ETOH, met up with an old friend and drank with friend. Patient reports no history of seizures, no history AVH. Patient states high anxiety, tremors only when experiencing anxiety. Patient reports has been to detox in the past, last detox approximately 2020. Recovery resources reviewed and left at bedside. Patient reports interested in following up with IOP at [facility], patient given contact info for IOP programs. Patient reports is feeling better, anxiety manageable, no longer feeling withdrawal.
--- NOTE | 2022-10-30 12:36 | MHC.CM.PN ---
PATIENT IS INDEPENDENT WITH ADLS. NO COVID VACCINES AND HAS HAD THE VIRUS X 2. NO DME OR VNA HE IS DC TODAY AND MOM IS IN ROOM TO TRANSPORT TO AN [facility] INTAKE
--- NOTE | 2022-10-30 12:39 | P.DS_ITS ---
DS: Providers Provider Date of Service: 10/30/22 Date of admission: 10/28/22 23:41 Primary care physician: Kristen Martínez MD Consults: 10/28/22 16:38 Consult to Care Team Stat Comment: Reason for consultation: pt wants detox, father working on 35 at [employer] 10/29/22 14:17 Consult to Psychiatry Routine Consulting Provider: Psych Covering Reason for consultation: wants to speak to provider about depression/anxiety Has provider been notified: No 10/29/22 18:50 Consult to Psychiatry Routine Consulting Provider: Psych Covering Reason for consultation: Anxiety/depression-- denies SI/HI Has provider been notified: No DS: Diagnosis Discharge Diagnosis (1) Alcohol use disorder, severe, dependence: Status: Acute (2) Alcohol withdrawal: Status: Acute (3) Anxiety and depression: Status: Acute (4) Hypernatremia: Status: Acute DS: Summary Hospital Course Hospital Course: 36-year-old male with past medical history of alcohol abuse, presents to the hospital? wanting to detox from alcohol..? Patient reports? that he intentionally stopped drinking and is interested in detox.? Patient reports that he drinks daily? All throughout the day, he is feeling anxious at this time.? Denies any Chest pain, no shortness of breath,abdominal pain nausea or vomiting, no diarrhea constipation, no urinary symptoms and no lower extremity edema. On arrival to the ED patient hemodynamically stable no significant abnormal vitals , patient was noted to have a heart rate of 130 that has now improved Labs are significant for WBC count of 4.7, labs otherwise unremarkable, he has barbiturates in his urine which were positive in the past, as well as alcohol level of 408.? Patient start on phenobarb protocol as he started withdrawing while in the ED. Hospital course: Patient was admitted for acute or withdrawal: Started on phenobarb protocol, thiamine folic acid, seems to be improved going home. Patient says that he already going to program for alcohol. Strongly advised to quit alcohol.he is currently not interested in detox. Hypernatremia: Probably related to dehydration: Improved with hydration. Plan: Strongly advised to quit alcohol.he is currently not interested in detox. Encouraged for hydration Above management discussed the patient denies the understand the plan time spent 40 minute. Time Spent with Patient Time attestation: Total time managing care of this patient today ____ minutes. Discharge coordination time: Greater than 30 minutes Quality: Safe Use of Opioids Does Pt have an Active Cancer Diagnosis on the Problem List?: No Quality: Stroke Does the patient have a stroke diagnosis?: No Physical Exam Vital Signs: Vital Signs: Last Vital Signs Temp 98.7 F 10/30/22 07:45 Pulse 81 10/30/22 07:45 Resp 17 10/30/22 07:45 BP 129/85 10/30/22 07:45 Pulse Ox 97 10/30/22 07:45 O2 Del Method 10/30/22 07:45 BMI result Body Mass Index 25.7 Appearance: Alert.? Oriented X3.? not in distress.? Eyes: Pupils equal, round and reactive to light.? Sclera nonicteric.? ENT: Pharynx normal.? Moist mucous membranes. cvs: rrr, [id number] , no murmur res: clear to auscultation ,no rhonchii or wheezing abd: no rebound or guarding ,nt, bs present. ext pulses present , no cyanosis. neuro: axo3 , nonfocal. DS: Data Data Completed and Pending Labs on day of discharge: Laboratory Results - last 24 hr 10/30/22 07:24 WBC 4.9 RBC 4.89 Hgb 15.1 Hct 43.9 MCV 89.8 MCH 30.9 MCHC 34.4 RDW 13.2 Plt Count 225 MPV 9.0 L Absolute Nucleated RBC 0.000 Nucleated RBC % (auto) 0.0 Discharge Plan Discharge Anticipated Discharge Date/Time: 10/30/22 12:38 Patient Disposition: Home, Self-Care Discharge Diagnosis: ALCOHOL withdrawal,mild hyperkalemia Referrals: Kristen Martínez MD [Primary Care Provider] - 1 Week Discharge Medications: New clonidine HCl 0.1 mg Tablet 0.1 mg PO BID PRN (Reason: anxiety) Qty: 10 0RF Protocol: Hold for SBP< HOLD for SBP < : 90 folic acid 1 mg Tablet 1 mg PO DAILY Qty: 30 0RF thiamine mononitrate (vit B1) 100 mg Tablet 100 mg PO DAILY Qty: 30 0RF Continued buspirone 5 mg tablet 5 mg PO TID Qty: 90 0RF pantoprazole 40 mg tablet,delayed release (DR/EC) 1 tab PO DAILY quetiapine 50 mg tablet 50 mg PO BEDTIME Discharge Orders: Discharge Order (Routine); Ordered 10/30/22 Ordered By: Castro Arciniega Diet: Advance to usual diet Activity on Discharge: As tolerated Stand Alone Forms: Patient Portal Discharge page Care Plan Goals: Patient was admitted for acute or withdrawal: Started on phenobarb protocol, thiamine folic acid, seems to be improved going home. Patient says that he already going to program for alcohol. Strongly advised to quit alcohol. Health Concerns: As above. Plan of Treatment: As above. Assessment: As above.
== END 2022-10-30 13:30 | disposition home or self-care (01) | DRG 425 ==
LOC: HO.ED 23:46 → HO.EDOVER 10-29 00:09 → HO.S3 10-29 12:09
PROVIDERS: Physician Assistant Medical; Registered Nurse; Admitting Provider Internal Medicine; Emergency Provider Emergency Medicine Emergency Medical Services; PCP Internal Medicine; Visit Provider Internal Medicine
DX: E87.5 Hyperkalemia (principal); F10.229 Alcohol dependence with intoxication, unspecified; F10.239 Alcohol dependence with withdrawal, unspecified; F41.9 Anxiety disorder, unspecified; F32.A Depression, unspecified; Y90.8 Blood alcohol level of 240 mg/100 ml or more; Z20.822 Contact with and (suspected) exposure to COVID-19; Z87.891 Personal history of nicotine dependence; Z88.0 Allergy status to penicillin; Z88.8 Allergy status to other drugs, medicaments and biological substances; Z79.899 Other long term (current) drug therapy
CPT/HCPCS: 36415; 80048; 80053; 80307; 81003; 82077; 82947; 83735; 85025; 85027; 87635; 99285; J2060; J2560; J3411

== ENCOUNTER 2024-07-04 09:06 | Emergency (ER) | payer SELFPAY ==
[2024-07-04 09:08] VITALS: BP 131/80; PULSE 86; RESP 20; TEMP 36.1; O2SAT 98; BMI 29.7
--- NOTE | 2024-07-04 09:33 | ED.GENADULT ---
HPI - General Adult General Chief complaint: Wound/Laceration Stated complaint: Burst Hemorrhoid Time Seen by Provider: 07/04/24 09:25 Source: patient Mode of arrival: ambulatory Limitations: no limitations History of Present Illness HPI narrative: This is 38 years old male presented to the emergency department complaining of hemorrhoidal bleeding since yesterday he went to the emergency department at [facility] yesterday sat there for 4 hours was no seen. Denies any dizziness weakness. Onset (ago): day(s) (1) Location: buttocks Radiation: non-radiation Severity: mild Quality: burning Pain Consistency: constant Relieving factors: none Exacerbating factors: none Related Data Home Medications ?Medication ?Instructions ?Recorded ?Confirmed quetiapine 50 mg tablet 50 mg PO BEDTIME 09/19/22 10/28/22 pantoprazole 40 mg tablet,delayed 1 tab PO DAILY 10/28/22 10/28/22 release Previous Rx's ?Medication ?Instructions ?Recorded buspirone 5 mg tablet 5 mg PO TID #90 tabs 10/30/22 clonidine HCl 0.1 mg tablet 0.1 mg PO BID PRN anxiety #10 tabs 10/30/22 folic acid 1 mg tablet 1 mg PO DAILY #30 tabs 10/30/22 thiamine mononitrate (vit B1) 100 100 mg PO DAILY #30 tabs 10/30/22 mg tablet polyethylene glycol 3350 17 17 g PO DAILY #119 grams 07/04/24 gram/dose oral powder (Miralax) Allergies Allergy/AdvReac Type Severity Reaction Status Date / Time penicillin V Allergy Unknown anaphylaxis Verified 07/04/24 09:11 hydroxyzine [From Atarax] AdvReac Chest Pain Verified 07/04/24 09:11 Review of Systems Cardiovascular: Cardiovascular: Reports no additional cardiovascular complaints Gastrointestinal: Gastrointestinal: Reports no additional gastrointestinal complaints [facility] Past Medical History [facility] Narrative: Denies Medical History Anxiety and depression Refused influenza vaccine Left ankle pain COVID-19 vaccination declined Alcohol dependence in early full remission Anxiety Surgical History History of removal of cyst Family History Family History Father Anxiety Mental health disorder Mother Depression Mental health disorder Brother Substance use disorder Mental health disorder Sister Mental health disorder Son No problems noted. Son No problems noted. Paternal Grandfather Substance use disorder Maternal Uncle Substance use disorder Social History Social History Household Members: Family Housing: House Do you presently have visiting nurse or other home services: No Alcohol intake: current Alcohol intake frequency: a few times a month Alcohol type: hard liquor Comment: refuing alarms Patient Tobacco Use Status: Former Tobacco user Tobacco use type: Cigarette Years Smoked: 6 months e-Cigarette/Vaping Use: Never Used Second Hand Smoke Exposure: No Substance Use Type: Prescription Drugs Advance Directives: No Advance Directives Information Provided: No service: No Current occupational status: employed Cognitive needs: No Hearing needs: No Vision needs: No Physical Exam ED Vital Signs: Vital Signs - 24 hr 07/04/24 09:08 07/04/24 09:46 Temperature 96.9 F 96.9 F Pulse Rate 86 86 Respiratory Rate 20 18 Blood Pressure 131/80 131/80 Pulse Oximetry 98 98 Oxygen Delivery Method Room Air Room Air BMI result Body Mass Index 29.7 Const General: cooperative Nutritional Appearance: well nourished Orientation/consciousness: patient oriented x3 Limitations: no limitations HENMT Head: Yes normal to inspection Ears: hearing grossly normal bilaterally General nose exam: Normal external nose present Face and sinus: Yes normal facial exam Throat: Yes posterior oropharynx normal Neck Neck: Yes normal visual inspection Chest Chest palpation & inspection: normal inspection of the chest Resp Effort & Inspection: normal respiratory effort Auscultation: clear to auscultation bilaterally Cardio Jugular venous distension: no JVD Rate: regular rate Rhythm: regular rhythm GI Inspection: Yes normal to inspection Percussion: Yes normal to percussion Auscultation: normal bowel sounds Skin Other: Rectal exam was done by me I visualized the hemorrhoid the rhino is no bleeding there is a scab on top. General skin exam: no rashes or lesions noted Lesions: no lesions Rashes: no rashes Neuro General: patient oriented x3 Course Reevaluation(s) Reevaluation #1: At this time the hemorrhoid is no bleeding I do not think we need to do any blood work on this patient he looks well is vital signs stable he has no tachycardic. I think he can be discharged home will have him follow-up with Dr. Mathur Time: 09:39 Medical Decision Making Medical Decision Making MDM Narrative: Patient presented to emergency department complaining of bleeding from the hemorrhoid Differential Diagnosis Differential Diagnoses: The differential diagnosis associated with the presentation includes Thrombosed hemorrhoid/bleeding hemorrhoid Independent Historian Clinical information obtained from an independent historian. History obtained from or confirmed by: Other (girfriend) Discharge Plan Discharge Clinical Impression: Bleeding external hemorrhoids Patient Disposition: Home, Self-Care Instructions: Hemorrhoids (DC) Prescriptions: New polyethylene glycol 3350 [Miralax] 17 gram/dose powder 17 g PO DAILY Qty: 119 0RF No Action buspirone 5 mg tablet 5 mg PO TID Qty: 90 0RF pantoprazole 40 mg tablet,delayed release (DR/EC) 1 tab PO DAILY clonidine HCl 0.1 mg Tablet 0.1 mg PO BID PRN (Reason: anxiety) Qty: 10 0RF Protocol: Hold for SBP< HOLD for SBP < : 90 folic acid 1 mg Tablet 1 mg PO DAILY Qty: 30 0RF thiamine mononitrate (vit B1) 100 mg Tablet 100 mg PO DAILY Qty: 30 0RF quetiapine 50 mg tablet 50 mg PO BEDTIME Referrals: Elan Mathur MD [Physician] - 3 days Interventions: ED Discharge Assessment Last Done: 07/04/24 09:46 Discharge Date/Time: 07/04/24 09:47 Print Language: Hebrew
[2024-07-04 09:46] VITALS: BP 131/80; PULSE 86; RESP 18; TEMP 36.1; O2SAT 98
== END 2024-07-04 09:47 | disposition home or self-care (01) ==
PROVIDERS: Emergency Provider Emergency Medicine
DX: K64.4 Residual hemorrhoidal skin tags (principal); Z79.899 Other long term (current) drug therapy; Z87.891 Personal history of nicotine dependence
CPT/HCPCS: 99283; 99284